=== PATIENT | female | born 1945 | race Caucasian/White ===

== ENCOUNTER → 2019-11-02 10:43 | Outpatient (BNVA) | payer MEDICARE, SELFPAY | PROVIDERS: Family Provider Family Medicine; PCP Family Medicine; Visit Provider Specialist | DX: G20 Parkinson's disease (principal) | CPT/HCPCS: 95983; 95984; 99214 ==

== ENCOUNTER → 2019-12-27 15:10 | Outpatient (BNVA) | payer MEDICARE, SELFPAY | PROVIDERS: Family Provider Family Medicine; PCP Family Medicine; Visit Provider Specialist | DX: G20 Parkinson's disease (principal) | CPT/HCPCS: 95983; 95984; 99214 ==

== ENCOUNTER → 2020-05-08 10:00 | Outpatient (BNVA) | payer MEDICARE, SELFPAY | PROVIDERS: Family Provider Family Medicine; PCP Family Medicine; Visit Provider Specialist | DX: G20 Parkinson's disease (principal); F02.80 Dementia in other diseases classified elsewhere, unspecified severity, without behavioral disturbance, psychotic disturbance, mood disturbance, and anxiety; R25.1 Tremor, unspecified | CPT/HCPCS: 95983; 99214 ==

== ENCOUNTER → 2020-05-09 13:18 | Outpatient (BNVA) | payer MEDICARE, SELFPAY | PROVIDERS: Family Provider Family Medicine; PCP Family Medicine; Visit Provider Specialist | DX: G20 Parkinson's disease (principal) | CPT/HCPCS: 95983; 99213 ==

== ENCOUNTER → 2020-05-23 07:50 | Outpatient (BNVA) | payer MEDICARE, SELFPAY | PROVIDERS: Family Provider Family Medicine; PCP Family Medicine; Visit Provider Specialist | DX: G20 Parkinson's disease (principal) | CPT/HCPCS: 95983; 99214 ==

== ENCOUNTER → 2020-06-19 13:13 | Outpatient (BNVA) | payer MEDICARE, SELFPAY | PROVIDERS: Family Provider Family Medicine; PCP Family Medicine; Visit Provider Nurse Practitioner Family | DX: N30.01 Acute cystitis with hematuria (principal) | CPT/HCPCS: 80053; 81000 ==

== ENCOUNTER → 2020-09-20 09:58 | Outpatient (BNVA) | payer MEDICARE, SELFPAY | PROVIDERS: Family Provider Family Medicine; PCP Family Medicine; Visit Provider Specialist | DX: G20 Parkinson's disease (principal) | CPT/HCPCS: 95983; 99214 ==

== ENCOUNTER → 2020-11-17 09:38 | Outpatient (BNVA) | payer MEDICARE, SELFPAY | PROVIDERS: Family Provider Family Medicine; PCP Family Medicine; Visit Provider Specialist | DX: G20 Parkinson's disease (principal); R20.0 Anesthesia of skin; R20.2 Paresthesia of skin | CPT/HCPCS: 80053; 84443; 85025 ==

== ENCOUNTER → 2021-03-21 10:04 | Outpatient (BNVA) | payer MEDICARE, SELFPAY | PROVIDERS: Family Provider Family Medicine; PCP Family Medicine; Visit Provider Specialist | DX: G20 Parkinson's disease (principal); M25.562 Pain in left knee; Z96.82 Presence of neurostimulator | CPT/HCPCS: 95983; 95984; 99215 ==

== ENCOUNTER → 2021-04-03 10:32 | Outpatient (BNVA) | payer MEDICARE, SELFPAY | PROVIDERS: Family Provider Family Medicine; PCP Family Medicine; Visit Provider Orthopaedic Surgery | DX: M25.562 Pain in left knee (principal); Z96.652 Presence of left artificial knee joint; Z47.1 Aftercare following joint replacement surgery | CPT/HCPCS: 73560; 73565; 97760; L1830 ==

== ENCOUNTER 2021-04-03 14:45 | Outpatient (CLI) | payer MEDICARE, SELFPAY | END 2021-04-03 14:46 | disposition home or self-care (01) | LOC: SPT 14:46 | PROVIDERS: Family Provider Family Medicine; PCP Family Medicine; Visit Provider Orthopaedic Surgery | DX: Z47.1 Aftercare following joint replacement surgery (principal); Z96.652 Presence of left artificial knee joint | CPT/HCPCS: 97760; L1830 ==

== ENCOUNTER → 2021-08-22 10:34 | Outpatient (BNVA) | payer MEDICARE, SELFPAY | PROVIDERS: Family Provider Family Medicine; PCP Family Medicine; Visit Provider Specialist | DX: G20 Parkinson's disease (principal); R56.9 Unspecified convulsions; E66.3 Overweight; Z68.28 Body mass index [BMI] 28.0-28.9, adult; Z96.82 Presence of neurostimulator | CPT/HCPCS: 95983; 95984; 99214; 99215 ==

== ENCOUNTER → 2022-02-20 09:37 | Outpatient (BNVA) | payer MEDICARE, SELFPAY | PROVIDERS: Family Provider Family Medicine; PCP Family Medicine; Visit Provider Orthopaedic Surgery | DX: M25.561 Pain in right knee (principal); M23.50 Chronic instability of knee, unspecified knee | CPT/HCPCS: 99213; 99214 ==

== ENCOUNTER 2022-03-26 06:00 | Outpatient (CLI) | payer MEDICARE, SELFPAY ==
[2022-03-26 10:11] VITALS: BMI 31.4
--- NOTE | 2022-03-26 10:22 | ECG_ITS ---
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 Measurements Intervals [place] Rate: P: FL: QRS: QRSD: T: QT: QTc: Interpretive Statements SINUS BRADYCARDIA Compared to ECG 12/06/2018 13:13:26 Left bundle-branch block no longer present Electronically Signed On 03-26-2022 18:11:06 CDT by Denys Gomez M.D. [id number]
--- NOTE | 2022-03-26 10:51 | ANES.PREANE2 ---
Pre-Anesthetic Assessment Height/Weight: Height 1.68 m Weight 88.451 kg Operation Date: 04/01/22 07:00 Proposed Procedures p Revision of total knee arthroplasty Left knee: 55524/M25.569(Left) - Dougie Mccallum MD Familial anesthetic complications: Patient unable to recall well, but states that when she had her last surgery a ammonium nitrate neutralizer was involved in evaluating her in the middle of her procedure and that she was told she had an VT but in the end I did fine. Was Beta Jorge taken within 24 hours: N/A Was Clonidine taken within 24 hours: N/A Social No alcohol and No tobacco Exam alert, oriented x 3, clear to auscultation bilaterally and regular rate & rhythm Airway Submandibular: within normal limits Cervical ROM: Other (limited extension) Mallampati: Class III Comments: Comments: Upper dentures Pulmonary None reported CV/HEM Arrythmia (Bundle branch block on EKG - final report pending ) and Myocardial Infarction None reported Hepatic None reported GI Gastroesophageal Reflux Disease and None reported Metabolic None reported Musc/skel Osteoarthritis/DJD PCL disruption Neuropsych Parkinson's with DBS in place. Leads down right posterior neck, generator right upper chest. Anesthetic Plan ASA status: 3 (76 year old female with hx of Parkinson's s/p DBS placment and PCL disruption w/ instability of joint ) Anesthesia: General Other: We discussed risk and benefits of general vs spinal anesthesia including DVT risk, infection, paralysis/catastrophic nerve injury, back bruising/pain, PDPH, conversion to general in case of spinal, PONV, sore throat (sometimes severe), corneal abrasion, positioning and peripheral nerve injuries, life threatening allergic reaction, post operative ICU admission requiring prolonged intubation, stroke, heart attack, , post operative delirium and/or post operative cognitive decline, and rare incidences of recall (under general anesthesia). Patient prefers general anesthesia. Risk of > 500 ml blood loss (7ml/kg in children): No Other Pertinent Information Patient poor historian with reduced activity/mobility secondaryto PCL disruption with instability and DBS dependent Parkinson with unclear history of cardiac event reported by patient. Plan pre op cardiac clearance, consult ordered. Patient DBS last evaluated August 2021. Consult placed to see neurologist prior to surgery. Medications/Allergies Home Medications Medication Instructions Recorded Confirmed Last Taken Type naproxen 375 mg tablet,delayed 375 mg PO BID PRN 11/02/19 03/26/22 Unknown History release hydrocodone 10 mg-acetaminophen 1 tab PO DAILY PRN 30 Days #30 tab 03/21/21 03/26/22 Unknown Rx 325 mg tablet Knee immobilizer #1 ea 04/03/21 02/20/22 Unknown Rx carbidopa 25 mg-levodopa 100 mg 1 tab PO QID 03/26/22 03/26/22 Unknown History tablet midodrine 5 mg tablet 5 mg PO QID 03/26/22 03/26/22 Unknown History Allergies Allergy/AdvReac Type Severity Reaction Status Date / Time No Known Allergies Allergy Verified 03/26/22 10:09 [facility] Anesthesia Surgical History Status post deep brain stimulator placement Family History Other CAD (coronary artery disease) Cancer Diabetes Stroke Denies family history of Hypertension Social History Smoking and tobacco status: never smoked Alcohol intake: never History of recent travel: No Data Anesthesia Cardiac Studies: No Data to Display
[2022-03-26 14:51] LABS: Basophils # 0.1 10^3/uL (0.0-0.1); Basophils % 1.6 %; Eosinophils # 0.4 10^3/uL (0.0-0.8); Eosinophils % 6.4 %; Hematocrit 37.6 % (37.0-47.0); Hemoglobin 11.9 g/dL (11.5-15.3); Lymphocytes # 1.5 10^3/uL (0.8-4.8); Lymphocytes % 25.9 %; Mean Corpuscular HGB Conc 31.6 g/dL (30.0-36.0); Mean Corpuscular Hemoglobin 30.9 pg (28.0-34.0); Mean Corpuscular Volume 97.7 fl (81-99); Mean Platelet Volume 10.8 fL (7.4-10.4); Monocytes # 0.3 10^3/uL (0.2-0.9); Monocytes % 5.7 %; Neutrophils # 3.47 10^3/uL (1.8-7.7); Neutrophils % 60.2 %; Nucleated Red Blood Cells % 0 %; Platelet Count 196 10^3/cmm (130-400); Red Blood Count 3.85 10^6/uL (4.1-5.3); Red Cell Distribution Width 13.7 % (12.1-15.1); White Blood Count 5.8 10^3/uL (4.0-10.0)
[2022-03-26 15:09] LABS: Anion Gap 16.1 (5-19); Blood Urea Nitrogen 25 mg/dL (8-23); Calcium 8.9 mg/dL (8.5-10.5); Carbon Dioxide 23 mmol/L (22-29); Chloride 102 mmol/L (98-107); Glucose 158 mg/dL (65-115); Osmolality Calculated 292 mOsm/kg (285-295); Potassium 4.1 mmol/L (3.5-5.1); Sodium 137 mmol/L (136-145)
== END 2022-03-26 06:01 | disposition home or self-care (01) ==
LOC: LAB 07-29 19:50
PROVIDERS: Anesthesiology; PCP Family Medicine; Visit Provider Orthopaedic Surgery
DX: Z01.89 Encounter for other specified special examinations (principal)
CPT/HCPCS: 36415; 80048; 85025

== ENCOUNTER → 2022-03-26 12:20 | Day surgery (SDC) | payer MEDICARE, SELFPAY | PROVIDERS: PCP Family Medicine; Visit Provider Orthopaedic Surgery | DX: Z01.818 Encounter for other preprocedural examination (principal) | CPT/HCPCS: 93005 ==

== ENCOUNTER → 2022-03-27 13:43 | Outpatient (BNVA) | payer MEDICARE, SELFPAY | PROVIDERS: PCP Family Medicine; Visit Provider Specialist | DX: G20 Parkinson's disease (principal); M23.52 Chronic instability of knee, left knee; Z96.82 Presence of neurostimulator | CPT/HCPCS: 82607; 95983; 95984; 99214 ==

== ENCOUNTER → 2022-05-22 12:26 | Outpatient (BNVA) | payer MEDICARE, SELFPAY | PROVIDERS: PCP Family Medicine; Visit Provider Internal Medicine | DX: Z01.818 Encounter for other preprocedural examination (principal); R06.09 Other forms of dyspnea; R07.9 Chest pain, unspecified; R06.02 Shortness of breath | CPT/HCPCS: 99203; 99204 ==

== ENCOUNTER 2022-07-29 13:41 | Outpatient (CLI) | payer MEDICARE, SELFPAY ==
--- NOTE | 2022-07-29 14:30 | USCV_ITS ---
Leonor Snyder Age: 77 Gender: F : 1945 Exam Date: 07/29/2022 15:00 Ordering Phys: Denys Gomez M.D ([email or web address]) Technologist: Guevara Delgado Exam Location: [facility] [place] Indication: shortness of breath BP: 122 / 80 HR: 65 Rhythm: Sinus Technical Quality: Adequate MEASUREMENTS (Male / Female) Normal Values 2D ECHO LV Diastolic Diameter PLAX 3.6 cm 4.2 - 5.9 / 3.9 - 5.3 cm LV Systolic Diameter PLAX 2.2 cm IVS Diastolic Thickness 0.8 cm 0.6 - 1.0 / 0.6 - 0.9 cm IVS Systolic Thickness 0.9 cm LVPW Diastolic Thickness 0.9 cm 0.6 - 1.0 / 0.6 - 0.9 cm LVPW Systolic Thickness 1.0 cm LVOT Diameter 2.0 cm LV Ejection Fraction 2D Teich 69.4 % LV Ejection Fraction MOD 2C 66.9 % LV Ejection Fraction 2C AL 67.6 % LA Diameter 3.2 cm LA Width 3.8 cm LA Height 4.7 cm RA Width 3.3 cm RA Height 3.9 cm Aorta at Sinotubular Diameter 2.3 cm IVC Diameter 1.8 cm M-MODE Aortic Annulus Diameter 3.0 cm LA Ao Ratio MM 1.1 MV E Point Septal Separation 0.4 cm DOPPLER AV Peak Velocity 151.0 cm/s LVOT Peak Velocity 93.0 cm/s AV Area Cont Eq vti 1.8 cm squared AV Area Cont Eq pk 1.9 cm squared MV Peak Velocity 110.0 cm/s MV Area PHT 10.0 cm squared Mitral E to A Ratio 0.6 MV E' Velocity 32.5 cm/s Mitral E to MV E' Ratio 6.7 Mitral E to LV E' Lateral Ratio 6.0 Mitral E to LV E' Septal Ratio 7.7 TR Peak Velocity 305.6 cm/s TR Peak Gradient 37.4 mmHg TR Mean Velocity 249.1 cm/s TR Mean Gradient 25.7 mmHg TR Velocity Time Integral 99.6 cm Right Atrial Pressure 3.0 mmHg Pulmonary Artery Systolic Pressu 40.4 mmHg PV Peak Velocity 102.0 cm/s RV Acceleration Time 0.1 s RV Ejection Time 0.3 s RV AcT/ET 0.3 FINDINGS Left Ventricle Left ventricle is normal in size. LV systolic function is normal with EF of 55 to 60%. No regional wall motion abnormalities are seen. Grade 1 diastolic dysfunction Right Ventricle RV is normal in size and function Right Atrium Normal in size Left Atrium Normal in size Mitral Valve Structurally normal mitral valve. Trace mitral regurgitation. Aortic Valve Grossly normal. No significant aortic stenosis. Mild aortic regurgitation. Tricuspid Valve Trace tricuspid regurgitation. RVSP is 35-40mmHg. This is consistent with mild pulmonary hypertension Pulmonic Valve Mild pulmonic regurgitation Pericardium Normal Aorta Normal in size IVC Appears to be normal CONCLUSIONS LV systolic function is normal with EF of 55 to 60% Grade 1 diastolic dysfunction Trace mitral regurgitation Mild aortic regurgitation Trace tricuspid regurgitation Mild pulmonary hypertension Mild pulmonic regurgitation Compared to prior echocardiogram from 2013, no significant changes are seen Denys Gomez MD (Electronically Signed) Final Date: 30 July 2022 12:00 S
== END 2022-07-29 13:42 | disposition home or self-care (01) ==
PROVIDERS: PCP Family Medicine; Visit Provider Internal Medicine
DX: R06.02 Shortness of breath (principal); I08.3 Combined rheumatic disorders of mitral, aortic and tricuspid valves; I27.20 Pulmonary hypertension, unspecified
CPT/HCPCS: 93306

== ENCOUNTER → 2022-08-06 13:44 | Outpatient (BNVA) | payer MEDICARE, SELFPAY | PROVIDERS: PCP Family Medicine; Visit Provider Orthopaedic Surgery | DX: M25.562 Pain in left knee (principal) | CPT/HCPCS: 99213 ==

== ENCOUNTER 2022-08-09 10:47 | Emergency (ER) | payer MEDICARE, SELFPAY ==
[2022-08-09 10:53] VITALS: BP 142/53; PULSE 79; RESP 18; O2SAT 99
--- NOTE | 2022-08-09 11:03 | XR_ITS ---
WS: [id number] Left knee, 3 views, 08/09/2022 Clinical Data: displacement of artifical knee Comparison: AP both knees, left knee, 04/03/2021 Findings: There is posterior dislocation of the tibia from the femur. The arthroplastic components remain in go od position. No periprosthetic fractures are seen. There are anterior subcutaneous calcifications adjacent to the proximal left tibia. XR/XR knee LT 1-2V 90804 Impression: Posterior dislocation of left tibia from the femur.
--- NOTE | 2022-08-09 11:05 | W.ED.EXTPRO ---
Documented by User: Jeri Araujo PA-C 08/09/22 14:02 HPI - Extremity Problem General: Chief complaint: Extremity Problem,Nontraumatic Stated complaint: KNEE ISSUES Time Seen by Provider: 08/09/22 10:49 Source: patient Mode of arrival: EMS Limitations: no limitations History of Present Illness: 77-year-old female presents to the ER today for left knee pain and probable displacement. Patient reports this has been causing her problems. She reports she had it replaced in the mid by a physician in [facility]. Patient reports over the last several months she has had a go out of place several times but has been able to get it back in place. Last night she reports she was walking across the floor when it went out. Patient reports she is been unable to get it back into place at this time. She reports the pain is continuing to worsen now. Patient reports she had an appointment with Ortho coming up but given she could not get it back in place she came to the ER today. Patient reports she last ate or drank last night. Review of Systems General: Reports: 10 or more systems reviewed and unremarkable except in HPI and below PFSH ED PFSH: Surgical History Status post deep brain stimulator placement Family History Other CAD (coronary artery disease) Cancer Diabetes Stroke Denies family history of Hypertension Social History Smoking and tobacco status: never smoked Alcohol intake: never History of recent travel: No Physical Exam Const: COMMON NORMALS: average body habitus, patient oriented x3, no limitations, alert and well nourished Resp: COMMON NORMALS: normal respiratory effort, No retractions and clear to auscultation bilaterally AUSCULTATION: clear to auscultation bilaterally Cardio: COMMON NORMALS: regular rate, regular rhythm and No murmurs present (Cardio) RATE: regular rate RHYTHM: regular rhythm Extremity: NARRATIVE EXTREMITY EXAM: The tibia and fibula appears to have lateral displacement from the femur. There is moderate swelling noted in the anterior left knee compartment. There is mild bruising also noted. Patient has tenderness over this area also. Neuro: COMMON NORMALS: patient oriented x3 SENSORIUM/ORIENTATION: Yes alert Psych: COMMON NORMALS: mental status grossly normal, Normal thought process present and cooperative THOUGHT PROCESS: Normal thought process present Skin: COMMON NORMALS: no rashes or lesions noted and no wounds GENERAL SKIN EXAM: no rashes or lesions noted Course ED course: Patient presents to the ER for probable left knee displacement. We will get an x-ray at this time. Patient will be given fentanyl for pain at this time. We will contact Ortho pending results. Reevaluation(s): Reevaluation #1: I spoke with Dr. Mccallum and sent him pictures. Here recommends reducing this in the ER today. He recommends flexing and bending the knee to pop it forward. I do not feel comfortable doing this therefore I discussed this patient with both Dr. Moyer and Dr. Rivera who neither 1 will reduce this either given the prosthetic. Dr. Mccallum was contacted by Dr. Rivera for further discussion on this patient Time: 11:35 Reevaluation #2: Patient was seen by Dr. Moyer and he was able to reduce the dislocation. Repeat x-ray showed the knee to be in place at this time. Time: 14:01 Vital Signs: Vital signs: Vital Signs Pulse Rate 79 08/09/22 10:53 Respiratory Rate 19 H 08/09/22 13:56 Blood Pressure 142/53 08/09/22 10:53 Pulse Oximetry 99 08/09/22 10:53 Oxygen Delivery Me thod 08/09/22 10:53 MDM - Extremity (Nontraumatic) Medical Decision Making Dr. Moyer was able to reduce patient's dislocation. This was confirmed with repeat x-ray. We will send patient home at this time. Dr. Mccallum is working on scheduling patient for surgery, this was in the works prior to patient coming to the ER. Patient was placed in a straight leg knee brace and told to leave the knee brace on at all times. She should return to the ER with new or worsening symptoms. I will do a short course of hydrocodone for pain as patient is reporting significant pain at this time. Lab Data Radiology Impressions Knee X-Ray 08/09/22 12:07 IMPRESSION: 1. Reduction of the previously visualized dislocation. Correlate regarding integrity of distal pulses. 2. No paralleling lucencies about the femoral or tibial component to suggest loosening. 3. No acute fracture or dislocation. Critical Care Time Critical Care Time: Critical Care Time: No Discharge Plan Discharge Patient Disposition: Home Clinical Impression: Dislocation of knee, left, closed Qualifiers: Encounter type: initial encounter Qualified Code(s): S83.105A - Unspecified dislocation of left knee, initial encounter Condition: Stable Prescriptions: New hydrocodone-acetaminophen 5-325 mg tablet 1 tab PO Q8H PRN (Reason: pain) Qty: 9 0RF No Action naproxen 375 mg tablet,delayed release (DR/EC) 375 mg PO BID PRN (Reason: Pain) (DME) Knee immobilizer See Rx Instructions .ROUTE .MEDSUPPLY Qty: 1 0RF Rx Instructions: As directed cyanocobalamin (vitamin B-12) 1,000 mcg/mL solution 1,000 mcg IM .COMPLEX Qty: 10 0RF Rx Instructions: 1 injection of 1000mcg daily for 3 days then weekly for 4 weeks then monthly carbidopa-levodopa 25-100 mg tablet See Rx Instructions .ROUTE .COMPLEX Qty: 120 3RF Dose Instruction: Take 1 tablet by mouth 4 times daily Rx Instructions: Take 1 tablet by mouth 4 times daily midodrine 5 mg tablet See Rx Instructions .ROUTE .COMPLEX Qty: 120 3RF Dose Instruction: Take 1 tablet by mouth 4 times daily Rx Instructions: Take 1 tablet by mouth 4 times daily Discharge Orders: Discharge ED (Routine); Ordered 08/09/22 Ordered By: Jeri Araujo Referrals: Kartik Garcia MD [Primary Care Provider] - Discharge Diet: Usual diet Discharge Activity: Use walker/crutches as instructed Activity Restrictions/Additional Instructions: Wear brace as placed in the ER until follow-up with orthopedic doctor. Contact orthopedic clinic at this time and schedule follow-up next week. Return to the ER with any new or worsening symptoms. Apply ice to reduce swelling. Take home medications for pain. 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 Fwd Exam Detailed Documented by User: Chip Moyer DO 08/13/22 06:00 HPI - Extremity Problem General: Chief complaint: Extremity Problem,Nontraumatic Stated complaint: KNEE ISSUES Time Seen by Provider: 08/09/22 10:49 PFSH ED PFSH: Surgical History Status post deep brain stimulator placement Family History Other CAD (coronary artery disease) Cancer Diabetes Stroke Denies family history of Hypertension Social History Smoking and tobacco status: never smoked Alcohol intake: never History of recent travel: No Procedures Orthopedic Joint Reduction Joint #1: Side: left Joint Reduction Location: knee/patella Technique used: direct manipulation Post-reduction neuro exam: intact Post-reduction vascular: intact Post Reduction X-Ray Obtained: Yes Post Reduction X-Ray Results: reduced Splint Applied: Yes Patient Tolerated Procedure: well Additional Comments: Tibial plate has an negative tilt to it by flexing to 90 degrees was able to reduce. However any attempted extension it immediately dislocated again. By holding supported distal femur was able to maintain reduction and apply knee immobilizer with knee immobilizer applied was able to maintain anatomical reduction. Course Vital Signs: Vital signs: Vital Signs Pulse Rate 79 08/09/22 10:53 Respiratory Rate 19 H 08/09/22 13:56 Blood Pressure 142/53 08/09/22 10:53 Pulse Oximetry 99 08/09/22 10:53 Oxygen Delivery Me thod 08/09/22 10:53 MDM - Extremity (Nontraumatic) Medical Decision Making Dr. Moyer was able to reduce patient's dislocation. This was confirmed with repeat x-ray. We will send patient home at this time. Dr. Mccallum is working on scheduling patient for surgery, this was in the works prior to patient coming to the ER. Patient was placed in a straight leg knee brace and told to leave the knee brace on at all times. She should return to the ER with new or worsening symptoms. I will do a short course of hydrocodone for pain as patient is reporting significant pain at this time. Reduction was delivered fairly straightforward applied the anemia with laser to maintain a confirmed reduction by repeat x-ray. We will discharge patient home to follow-up in the clinic. Discussed with Dr. Mccallum via telephone they have plans for patient to have revision of the knee. Postreduction neurovascular intact. Medical Records I reviewed the patient's medical records. Lab Data I reviewed the patient's lab results. Radiology Impressions Knee X-Ray 08/09/22 12:07 IMPRESSION: 1. Reduction of the previously visualized dislocation. Correlate regarding integrity of distal pulses. 2. No paralleling lucencies about the femoral or tibial component to suggest loosening. 3. No acute fracture or dislocation. Discharge Plan Discharge Patient Disposition: Home Clinical Impression: Dislocation of knee, left, closed Qualifiers: Encounter type: initial encounter Qualified Code(s): S83.105A - Unspecified dislocation of left knee, initial encounter Condition: Stable Prescriptions: New hydrocodone-acetaminophen 5-325 mg tablet 1 tab PO Q8H PRN (Reason: pain) Qty: 9 0RF No Action naproxen 375 mg tablet,delayed release (DR/EC) 375 mg PO BID PRN (Reason: Pain) (DME) Knee immobilizer See Rx Instructions .ROUTE .MEDSUPPLY Qty: 1 0RF Rx Instructions: As directed cyanocobalamin (vitamin B-12) 1,000 mcg/mL solution 1,000 mcg IM .COMPLEX Qty: 10 0RF Rx Instructions: 1 injection of 1000mcg daily for 3 days then weekly for 4 weeks then monthly carbidopa-levodopa 25-100 mg tablet See Rx Instructions .ROUTE .COMPLEX Qty: 120 3RF Dose Instruction: Take 1 tablet by mouth 4 times daily Rx Instructions: Take 1 tablet by mouth 4 times daily midodrine 5 mg tablet See Rx Instructions .ROUTE .COMPLEX Qty: 120 3RF Dose Instruction: Take 1 tablet by mouth 4 times daily Rx Instructions: Take 1 tablet by mouth 4 times daily Discharge Orders: Discharge ED (Routine); Ordered 08/09/22 Ordered By: Jeri Araujo Referrals: Kartik Garcia MD [Primary Care Provider] - Discharge Diet: Usual diet Discharge Activity: Use walker/crutches as instructed Activity Restrictions/Additional Instructions: Wear brace as placed in the ER until follow-up with orthopedic doctor. Contact orthopedic clinic at this time and schedule follow-up next week. Return to the ER with any new or worsening symptoms. Apply ice to reduce swelling. Take home medications for pain. 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
[2022-08-09 11:43] VITALS: RESP 19
[2022-08-09] MEDS: fentaNYL 50 mcg/mL INJ 2mL IVP (11:43)
--- NOTE | 2022-08-09 12:07 | XRR_ITS ---
PROCEDURE INFORMATION: Exam: XR Left Knee Exam date and time: 08/09/2022 12:10 PM Age: 77 years old Clinical indication: Pain; Left; Prior surgery; Patient HX: Follow up of lt knee dislocation; Additional info: Knee pain TECHNIQUE: Imaging protocol: Radiologic exam of the Left knee. Views: 1 or 2 views. COMPARISON: CR XR knee LT 1-2V 97052 08/09/2022 11:10 AM FINDINGS: Tubes, catheters and devices: Spacer. Bones/joints: Reduction of the previously visualized dislocation. Patient is status post knee arthroplasty with near anatomical alignment of the prosthesis. No paralleling lucencies about the femoral or tibial component to suggest loosening. No acute fracture or dislocation. Calcification within the patellar tendon. Previously noted although more numerous current LEEP. Soft tissues: Normal. XR/XR knee LT 1-2V 98214 IMPRESSION: 1. Reduction of the previously visualized dislocation. Correlate regarding integrity of distal pulses. 2. No paralleling lucencies about the femoral or tibial component to suggest loosening. 3. No acute fracture or dislocation.
[2022-08-09] MEDS: orphenadrine 30 mg/mL Inj 2 mL 60 MG IVP (12:16)
[2022-08-09 13:56] VITALS: RESP 19
== END 2022-08-09 13:57 | disposition home or self-care (01) ==
PROVIDERS: Emergency Provider Physician Assistant; PCP Family Medicine
DX: S83.125A Posterior dislocation of proximal end of tibia, left knee, initial encounter (principal); X58.XXXA Exposure to other specified factors, initial encounter; Z96.652 Presence of left artificial knee joint
CPT/HCPCS: 27550; 73560; 96374; 96375; 99284; J2360; J3010

== ENCOUNTER 2022-08-16 10:57 | Outpatient (CLI) | payer MEDICARE, SELFPAY | END 2022-08-16 10:58 | disposition home or self-care (01) | LOC: RT 08-28 11:00 | PROVIDERS: PCP Family Medicine; Visit Provider Orthopaedic Surgery | DX: Z01.89 Encounter for other specified special examinations (principal); I44.7 Left bundle-branch block, unspecified | CPT/HCPCS: 93005 ==

== ENCOUNTER 2022-08-26 14:26 | Inpatient (IN) | payer MEDICARE, SELFPAY ==
[2022-08-16 13:41] VITALS: BMI 31.4
--- NOTE | 2022-08-16 13:59 | ECG_ITS ---
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 Measurements Intervals [place] Rate: 79 P: 36 VA: 156 QRS: -23 QRSD: 158 T: 115 QT: 407 QTc: 469 Interpretive Statements SINUS RHYTHM LEFT BUNDLE BRANCH BLOCK [120+ ms QRS DURATION, 80+ ms Q/S IN V1/V2, 85+ ms R IN I/aVL/V5/V6] Compared to ECG 03/26/2022 09:30:58 Left bundle-branch block now present Sinus bradycardia no longer present Electronically Signed On 08-16-2022 15:35:15 CDT by Dorothy Gage M.D. [id number]
--- NOTE | 2022-08-16 14:55 | P.ANESASSM_ITS ---
Pre-Anesthetic Assessment Height/Weight: Height 1.68 m Weight 88.451 kg Preop Diagnosis: Instability left total knee arthroplasty Operation Date: 08/26/22 10:25 Proposed Procedures p Left total knee arthroplasty:98635,M25.569(Left) - Dougie Mccallum MD Familial anesthetic complications: none Was Beta Jorge taken within 24 hours: N/A Was Clonidine taken within 24 hours: N/A Social No alcohol and No tobacco Exam alert, oriented x 3, clear to auscultation bilaterally and regular rate & rhythm Airway Submandibular: within normal limits Cervical ROM: within normal limits Mallampati: Class II Dentition: false CV/HEM Arrythmia (LBBB) and Coronary Artery Disease CONCLUSIONS ?LV systolic function is normal with EF of 55 to 60% ?Grade 1 diastolic dysfunction ?Trace mitral regurgitation ?Mild aortic regurgitation ?Trace tricuspid regurgitation ?Mild pulmonary hypertension ?Mild pulmonic regurgitation ?Compared to prior echocardiogram from 2013, no significant ?changes are seen ?Denys Gomez MD ?(Electronically Signed) ?Final Date:? ? ? 30 July 2022 ? 12:00 Metabolic Morbid Obesity [facility] [place] Osteoarthritis/DJD Neuropsych Dementia Parkinson's Anesthetic Plan ASA status: 3 Anesthesia: Regional (specify below) (SAB with adductor blk) Medications/Allergies Home Medications Medication Instructions Recorded Confirmed Last Taken Type naproxen 375 mg tablet,delayed 375 mg PO BID PRN Pain 11/02/19 08/16/22 Unknown History release Knee immobilizer #1 ea 04/03/21 08/06/22 Unknown Rx cyanocobalamin (vitamin B-12) 1,000 mcg IM .COMPLEX #10 mL 04/01/22 08/16/22 U nknown Rx 1,000 mcg/mL injection solution carbidopa 25 mg-levodopa 100 mg See Rx Instructions .Route 08/02/22 08/16/22 Unknown Rx tablet .COMPLEX #120 tabs hydrocodone 5 mg-acetaminophen 325 1 tab PO Q8H PRN pain #9 tabs 08/09/22 08/16/22 Unknown Rx mg tablet midodrine 5 mg tablet See Rx Instructions .Route 08/09/22 08/16/22 Unknown Rx .COMPLEX #120 tabs Allergies Allergy/AdvReac Type Severity Reaction Status Date / Time No Known Allergies Allergy Verified 08/06/22 14:38 PFSH Anesthesia Surgical History Status post deep brain stimulator placement Family History Other CAD (coronary artery disease) Cancer Diabetes Stroke Denies family history of Hypertension Social History Smoking and tobacco status: never smoked Alcohol intake: never History of recent travel: No Data Anesthesia Cardiac Studies: Echocardiogram 07/29/22
[2022-08-26] VITALS (24 sets, daily range): BP systolic 133–179; BP diastolic 64–87; PULSE 61–85; RESP 14–20; TEMP 36.6–37.1; O2SAT 94–98; BMI 31.4
--- NOTE | 2022-08-26 07:34 | P.ANESUD_ITS ---
Pre-Anesthetic Update Pre-Anesthetic Assessment: Date of Surgery/Procedure: 08/26/22 Preop Maureen gnosis: Instability left total knee arthroplasty Proposed Procedure: Operation Date: 08/26/22 07:00 Proposed Procedures p Left total knee arthroplasty Revision [id number],M25.569(Left) - Dougie Mccallum MD Any changes to Pre-Anesthetic Assessment?: No Exam: Pre-Anes Outpt Exam: alert, oriented x 3, clear to auscultation bilaterally and regular rate & rhythm Cardiac Studies: Echocardiogram 07/29/22
--- NOTE | 2022-08-26 07:35 | P.ANESASSM_ITS ---
Pre-Anesthetic Assessment Height/Weight: Height 1.68 m Weight 88.451 kg Preop Diagnosis: Instability left total knee arthroplasty Operation Date: 08/26/22 07:00 Proposed Procedures p Left total knee arthroplasty Revision [id number],M25.569(Left) - Dougie Mccallum MD Familial anesthetic complications: none Was Beta Jorge taken within 24 hours: N/A Was Clonidine taken within 24 hours: N/A Social No alcohol and No tobacco Exam alert, oriented x 3, clear to auscultation bilaterally and regular rate & rhythm Airway Submandibular: within normal limits Cervical ROM: within normal limits Mallampati: Class II Pulmonary Exertional Dyspnea CV/HEM Arrythmia (LBBB), Coronary Artery Disease and Myocardial Infarction Metabolic Morbid Obesity Musc/[facility] Lower Back Pain and Osteoarthritis/DJD Neuropsych Dementia Parkinson's with DBS Anesthetic Plan ASA status: 3 Anesthesia: Regional (specify below) (SAB with adductor blk) Medications/Allergies Home Medications Medication Instructions Recorded Confirmed Last Taken Type naproxen 375 mg tablet,delayed 375 mg PO BID PRN Pain 11/02/19 08/16/22 Unknown History release Knee immobilizer #1 ea 04/03/21 08/06/22 Unknown Rx cyanocobalamin (vitamin B-12) 1,000 mcg IM .COMPLEX #10 mL 04/01/22 08/16/22 Unknown Rx 1,000 mcg/mL injection solution carbidopa 25 mg-levodopa 100 mg See Rx Instructions .Route 08/02/22 08/16/22 Unknown Rx tablet .COMPLEX #120 tabs hydrocodone 5 mg-acetaminophen 325 1 tab PO Q8H PRN pain #9 tabs 08/09/22 08/16/22 Unknown Rx mg tablet midodrine 5 mg tablet See Rx Instructions .Route 08/09/22 08/16/22 Unknown Rx .COMPLEX #120 tabs Allergies Allergy/AdvReac Type Severity Reaction Status Date / Time No Known Allergies Allergy Verified 08/06/22 14:38 [facility] Anesthesia Surgical History Status post deep brain stimulator placement Family History Other CAD (coronary artery disease) Cancer Diabetes Stroke Denies family history of Hypertension Social History Smoking and tobacco status: never smoked Alcohol intake: never History of recent travel: No Data Anesthesia Cardiac Studies: Echocardiogram 07/29/22
[2022-08-26 09:41] LABS: Basophils # 0.1 10^3/uL (0.0-0.1); Basophils % 0.6 %; Eosinophils # 0.3 10^3/uL (0.0-0.8); Eosinophils % 3.8 %; Hematocrit 35.1 % (37.0-47.0); Hemoglobin 11.2 g/dL (11.5-15.3); Lymphocytes # 1.3 10^3/uL (0.8-4.8); Mean Corpuscular HGB Conc 31.9 g/dL (30.0-36.0); Mean Corpuscular Hemoglobin 31.6 pg (28.0-34.0); Mean Corpuscular Volume 99.2 fl (81-99); Mean Platelet Volume 10.2 fL (7.4-10.4); Monocytes # 0.6 10^3/uL (0.2-0.9); Monocytes % 6.9 %; Neutrophils # 5.87 10^3/uL (1.8-7.7); Neutrophils % 72.3 %; Nucleated Red Blood Cells % 0 %; Platelet Count 227 10^3/cmm (130-400); Red Blood Count 3.54 10^6/uL (4.1-5.3); Red Cell Distribution Width 13.1 % (12.1-15.1); White Blood Count 8.1 10^3/uL (4.0-10.0)
[2022-08-26] MEDS: sodium chloride 0.9% 1,000 ML 30 ML IV (09:48)
[2022-08-26] MEDS: gabapentin 300 mg Capsule PO (09:53)
[2022-08-26] MEDS: CELEcoxib 200 mg Capsule 400 MG PO (09:53)
[2022-08-26] MEDS: acetaminophen 500 mg Tablet 1000 MG PO ×2 (09:53→20:00)
[2022-08-26] MEDS: oxyCODONE 20 mg ER (12 HR) Tablet PO (09:53)
[2022-08-26 10:01] LABS: Anion Gap 11.3 (5-19); Blood Urea Nitrogen 22 mg/dL (8-23); Calcium 10.5 mg/dL (8.5-10.5); Carbon Dioxide 28 mmol/L (22-29); Chloride 101 mmol/L (98-107); Creatinine Clr Calc Pharmacy 58.6409; Glucose 118 mg/dL (65-115); Osmolality Calculated 286 mOsm/kg (285-295); Potassium 4.3 mmol/L (3.5-5.1); Sodium 136 mmol/L (136-145)
--- NOTE | 2022-08-26 11:18 | P.HP_ITS ---
Same Day Surgery H&P Indication for Procedure/HPI DATE OF PROCEDURE: August 26, 2022 CHIEF COMPLAINT/INDICATIONFOR SURGICAL PROCEDURE: Instability left knee PREOP DIAGNOSIS: Instability left total knee arthroplasty PLANNED PROCEDURE: Operation Date: 08/26/22 07:00 Proposed Procedures p Left total knee arthroplasty Revision [id number],M25.569(Left) - Dougie Mccallum MD This is an established 77 year old female patient here to discuss her anticipated knee revision.? Cardiac clearance has been obtained. She is here today for a follow up of her left knee pain and instability.? She describes original total knee being performed in 2007 in [facility] by Dr. Saenz.? She alleges a number of falls.? She can describe no single traumatic incident associated with the onset of her pain.? States her knee will pop in and out of place and gives way.? He is able to walk short distances perhaps 30 to 40 feet with a walker minutes to be very careful with any twisting or turning on her knee.? She has had a number of falls. 08/09/2022 the patient sustained a knee dislocation that she could not reduce on her own. She was seen in the ER were closed reduction was performed. She has been in a knee immobilizer since. Medications/Allergies* Home Medications 3 Medication Instructions Recorded Confirmed Type naproxen 375 mg tablet,delayed 375 mg PO BID PRN Pain 11/02/19 08/26/22 History release Allergies/Adverse Reactions Allergy/AdvReac Type Severity Reaction Status Date / Time No Known Allergies Allergy Verified 08/26/22 08:51 Current Medications: Generic Name Dose Route Start Last Admin Trade Name Freq PRN Reason Stop Dose Admin Sodium Chloride 1,000 mls @ 30 mls/hr 08/26/22 09:15 08/26/22 09:48 Sodium Chloride 0.9% IV 08/27/22 09:14 30 mls/hr .Q24H RAY Administration Pertinent History/Comorbid Conditions* Surgical History (Updated 05/10/20 @ 11:31 by Neli De La Torre MD) Status post deep brain stimulator placement Family History (Updated 12/27/19 @ 16:08 by Leticia Priest LPN) Diabetes CAD (coronary artery disease) Cancer Stroke Denies family history of Hypertension Social History Smoking and tobacco status: never smoked Alcohol intake: never History of recent travel: No Pertinent Exam Findings alert, oriented x 3, clear to auscultation bilaterally, regular rate & rhythm and operative site marked Left knee She has a well-healed anterior incision.? There is no erythema or swelling. Motion is from full extension to 120 degrees. 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
[2022-08-26] MEDS: ceFAZolin 2,000 MG in sodium chloride 0.9% (plus) 50 ML 100 MG IV ×2 (11:50→19:57)
[2022-08-26] MEDS: tranexamic acid 1,000 mg/10mL SDV 1000 MG IV (12:20)
[2022-08-26] MEDS: ketorolac 30 mg/mL INJ XX (12:48)
[2022-08-26] MEDS: sodium chloride 0.9% 100 mL Bag XX (12:48)
[2022-08-26] MEDS: EPINEPHrine 1 mg/mL INJ XX (12:49)
[2022-08-26] MEDS: tranexamic acid 1,000 mg/10mL SDV 1000 MG XX (12:52)
--- NOTE | 2022-08-26 13:46 | XRR_ITS ---
PROCEDURE INFORMATION: Exam: XR Left Knee Exam date and time: 08/26/2022 3:39 PM Age: 77 years old Clinical indication: Device placement; Joint replacement hardware; Prior surgery; Surgery date: Post-operative (0-2 days); Additional info: Left total knee arthroplasty TECHNIQUE: Imaging protocol: Radiologic exam of the Left knee. Views: 1 or 2 views. COMPARISON: CR XR knee LT 1-2V [id number] 08/09/2022 12:10 PM FINDINGS: Bones/joints: Replaced left total knee arthroplasty with extended stems noted in expected positioning. Soft tissues: Soft tissue swelling and air noted along the anterior knee corresponding to recent surgical procedure. XR/XR knee LT 1-2V [id number] IMPRESSION: Replaced left total knee arthroplasty in expected positioning.
--- NOTE | 2022-08-26 13:47 | P.OP_ITS ---
Operative Report Date of procedure: August 26, 2022 Pre-op diagnosis: Preop Diagnosis Instability left total knee arthroplasty Post-op diagnosis: same Post-op diagnosis: The posterior cruciate ligament and posterior lateral corner left total knee Procedure done: Revision and tibial polyethylene Implants: Brendon NexGen LCCK size 6 femoral component, 17x 100mm stem, medial and lateral 5 mm distal augments, 14 mm LCCK tibial insert. Pathology: none sent Surgeon: Dougie Mccallum Anesthesia: General Estimated blood loss (mL): 50 Tourniquet time (min): 60 Findings: The patient had a placed with a cruciate sparing tibial insert. There is ebu rnation and wear over the anterior medial tibial polyethylene. The femoral, tibial, and patellar components were cemented into place and stable. Condition: stable Disposition: PACU Procedure: The patient was taken to the operative and given a general anesthesia. She was prepped and draped on the operating room table with her left lower extremity exposed. A timeout was performed. An anterior incision was made in line with the previous scar with a scalpel blade and dissection carried down with el ectrocautery to the knee which was entered through a medial parapatellar approach. Patella could be easily displaced laterally and the knee flexed allowing access to the femoral component. An osteotome was used to remove the tibial insert. A small oscillating saw was used circumferentially around the femoral component the cement mantle from the bone. Tamp could then be used to elevate the femoral component with only minimal distal bone loss with cement. Sequential reaming of the stem was accomplished up to a size 17 where good cortical fit was felt to. The femoral cutting guide was placed attached to the stem over the femur with 5 mm distal augments to accommodate distal bone loss. Really no significant cuts were made through the block. Trial reduction was done with the component and stem. The final femoral component and stem were assembled and cemented into place. A 14 mm LCCK tibia provided excellent stability and was locked in place with the locking screw. he posterior capsule and collateral ligaments were then injected with a solution of 100 mL of 0.2% ropivacaine, 1 mL of a 1:1000 epinephrine solution, 30 mg of Toradol, and 1 g of tranexamic acid. The extensor retinaculum was closed with a running 1 Stratafix interrupted 1 Ethibond. The subcutaneous tissues were closed with 2-0 Vicryl and the skin was closed with a running 4-0 Stratafix. The wound was covered with a Dermabond Prineo dressing. It was covered with 4xrs and a compressive Tubigauze was applied. The patient was taken to recovery room in stable condition.
--- NOTE | 2022-08-26 14:33 | ANES.PROC ---
Anesthesia Procedures Procedure/Date: 08/26/22 Nerve Block ^: Nerve Block 1: Main Anesthesia: general anesthesia Time Out Performed: Yes Consent: requested by attending/covering physician, from patient, risks and benefits reviewed and patient agrees to proceed Nerve block location: adductor canal (left) Anesthesia monitors applied: pulse oximetry, EKG, BP cuff and oxygen Nerve block position: supine Anesthetic Used: ropivicaine 0.5% Amount of anesthesia used (mL): 20 Ultrasound used to: recognize landmarks Nerve Stimulator Used?: No Interscalene/Femoral BLK: 4 stimuplex 21 g needle used for position and inplane approach Injection: neg aspiration of heme Patient Tolerated Procedure: well Complications: none
--- NOTE | 2022-08-26 15:23 | SUR.PHASEI ---
1500 PT FOLLOWS COMMANDS AND WIGGLED TOES WHEN ASKED 1515 BROUGHT PT TO ROOM AND RECONIZED HER IN ROOM
[2022-08-26] MEDS: midodrine 5 mg TABLET PO (16:23)
[2022-08-26] MEDS: carbidopa-levodopa 25-100mg Tablet 1 EACH PO ×2 (16:23→21:10)
[2022-08-26] MEDS: sodium chloride 0.9% 1,000 ML 100 ML IV (16:25)
[2022-08-27] MEDS: sodium chloride 0.9% 1,000 ML 100 ML IV (01:20)
[2022-08-27 02:15] VITALS: BP 152/83; PULSE 65; RESP 16; TEMP 36.9; O2SAT 96
[2022-08-27 03:13] LABS: Hemoglobin 10.6 g/dL (11.5-15.3)
[2022-08-27] MEDS: ceFAZolin 2,000 MG in sodium chloride 0.9% (plus) 50 ML 100 MG IV ×2 (04:01→14:28)
[2022-08-27] MEDS: acetaminophen 500 mg Tablet 1000 MG PO ×3 (04:02→19:52)
[2022-08-27 06:00] VITALS: PULSE 66
--- NOTE | 2022-08-27 06:54 | PM.PN ---
Subjective Subjective: No complaints this morning. We will begin therapy. Vitals/I&O/Wt Last Vital Signs Temp 98.1 F 08/28/22 04:00 Pulse 90 08/28/22 04:00 Resp 12 08/28/22 04:00 BP 149/69 08/28/22 04:00 Pulse Ox 94 08/28/22 04:00 O2 Del Method 08/28/22 04:00 O2 Flow Rate 2 08/27/22 02:15 08/27/22 08/28/22 08/28/22 22:59 06:59 14:59 Intake Total 890 / 1730 0 / 1730 Output Total 300 / 300 350 / 650 Balance 590 / 1430 -350 / 1080 Weight last 48 hrs Weight 195 lb Physical Exam Narrative: Left knee incision clean and dry. Minimal swelling Urinary Catheter Management: Gaytan: Cath Placed During This Visit: yes, but has since been removed by the nurse Reason for Continuing Indwelling Catheter: Decision to DC Catheter Urinary Catheter Date of Insertion: 08/26/22 Urinary Catheter Time of Insertion: 12:00 Date Urinary Catheter Removed: 08/27/22 Time Urinary Catheter Discontinued: 06:05 Data : 08/28/22 06:44 08/28/22 06:44 A&P Assessment and plan (1) S/P revision of total knee: Begin to mobilize. Anticipate retirement. (2) Decubitus ulcer of left heel: Directed patient and family about minimizing pressure on posterior heel. Reposition pillow beneath calf. Attestations Medical Necessity Statement*: As per medicine Coding Level of Care Code Acute Printer Assistant for Ender Fwdenise Diagnoses S/P revision of total knee Z96.659 Decubitus ulcer of left heel L89.629
[2022-08-27 08:45] VITALS: PULSE 89; RESP 18; O2SAT 94
[2022-08-27] MEDS: carbidopa-levodopa 25-100mg Tablet 1 EACH PO ×3 (09:42→19:53)
[2022-08-27] MEDS: CELEcoxib 200 mg Capsule PO ×2 (09:42→21:39)
[2022-08-27] MEDS: aspirin 325 mg EC Tablet PO (09:42)
[2022-08-27] MEDS: midodrine 5 mg TABLET PO ×3 (09:42→19:53)
[2022-08-27 14:07] LABS: Glucose Point of Care 113 mg/dL (70-110)
[2022-08-27 16:26] VITALS: BP 145/75; PULSE 68; RESP 17; TEMP 36.7; O2SAT 96
[2022-08-27 20:00] VITALS: BP 136/72; PULSE 65; RESP 15; TEMP 36.4; O2SAT 95
[2022-08-27 22:00] VITALS: PULSE 67
[2022-08-28] VITALS (7 sets, daily range): BP systolic 87–178; BP diastolic 53–74; PULSE 68–90; RESP 12–18; TEMP 36.6–36.9; O2SAT 92–97
--- NOTE | 2022-08-28 03:07 | PC.NURSE ---
late entry 0110, patient having confusion in regards to place, calls daughter by name, places call to per phone without help, but is convinced that she is in her home, wants to see what her has done to her bedroom, very adamant to get out of bed and go into hallway to see for herself patient attempting to climb out of bed, daughter at bedside, placed patient in wheelchair x2 assist, wheeled patient out into hallway, reorientating patient, agrees to go back to bed, states she was sorry for acting that way bandage to left knee remains dry and intact.
[2022-08-28] MEDS: acetaminophen 500 mg Tablet 1000 MG PO ×3 (03:27→20:16)
--- NOTE | 2022-08-28 05:33 | XRR_ITS ---
PROCEDURE INFORMATION: Exam: XR Chest Exam date and time: 08/28/2022 6:00 AM Age: 77 years old Clinical indication: Prior surgery; Surgery type: Deep brain stimulator; Patient HX: New onset of confusion. Patient had total knee arthroplasty on 08/26/2022. ; Additional info: Confused TECHNIQUE: Imaging protocol: Radiologic exam of the chest. Views: 1 view. COMPARISON: None FINDINGS: Tubes, catheters and devices: Pacing device. Lungs: Interstitial prominence and chronic granulomatous disease. Pleural spaces: No pleural effusion. Heart/Mediastinum: Epicardial fat, without cardiomegaly. Bones/joints: Bilateral shoulder arthroplasties. Osteopenia and degenerative change. XR/XR chest 1V portable [id number] IMPRESSION: Interstitial prominence and chronic granulomatous disease.
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
[2022-08-28 06:53] LABS: Basophils # 0.1 10^3/uL (0.0-0.1); Basophils % 0.7 %; Eosinophils # 0.3 10^3/uL (0.0-0.8); Eosinophils % 3.4 %; Hematocrit 35.6 % (37.0-47.0); Hemoglobin 10.9 g/dL (11.5-15.3); Lymphocytes # 0.8 10^3/uL (0.8-4.8); Lymphocytes % 11.2 %; Mean Corpuscular HGB Conc 30.6 g/dL (30.0-36.0); Mean Corpuscular Hemoglobin 31.7 pg (28.0-34.0); Mean Corpuscular Volume 103.5 fl (81-99); Monocytes # 0.5 10^3/uL (0.2-0.9); Monocytes % 6.6 %; Neutrophils # 5.72 10^3/uL (1.8-7.7); Neutrophils % 77.6 %; Nucleated Red Blood Cells % 0 %; Platelet Count 215 10^3/cmm (130-400); Red Blood Count 3.44 10^6/uL (4.1-5.3); Red Cell Distribution Width 13.2 % (12.1-15.1); White Blood Count 7.4 10^3/uL (4.0-10.0)
--- NOTE | 2022-08-28 07:15 | PC.NURSE ---
late entry 05:30, patient continues to have bouts of confusion, mostly in regards to where she is at, insisting to get up and go to kitchen, unable to redirect, patient up on edge of bed, insisting to get up, becoming very angry, screaming, unable to calm, assisted patient up to wheelchair, not satisfied with direction we are pushing her, states i am getting out of here, going home, attempting to get up out of wheelchair. placed call to Dr. Johnson, new orders recieved, he came and seen patient, spoke with her, she agreed to lay back down in bed, patient calm at this time, haldol one time order, not given. daughter remains at bedside.
[2022-08-28 07:20] LABS: Alanine Aminotransferase 6 U/L (0-33); Albumin Level 3.3 g/dL (3.5-5.2); Alkaline Phosphatase 92 U/L (35-105); Anion Gap 16.2 (5-19); Aspartate Amino Transferase 28 U/L (0-32); Blood Urea Nitrogen 24 mg/dL (8-23); Calcium 10.1 mg/dL (8.5-10.5); Carbon Dioxide 24 mmol/L (22-29); Chloride 105 mmol/L (98-107); Globulin 3.1 g/dL (1.3-4.6); Glucose 113 mg/dL (65-115); Osmolality Calculated 297 mOsm/kg (285-295); Potassium 4.2 mmol/L (3.5-5.1); Sodium 141 mmol/L (136-145); Total Bilirubin 0.4 mg/dL (0.15-1.2); Total Protein 6.4 g/dL (6.6-8.7)
--- NOTE | 2022-08-28 07:49 | P.PN_ITS ---
Subjective Subjective: To be mobilized with therapy. Requiring two-person assist. Some confusion last night. Vitals/I&O/Wt Last Vital Signs Temp 98.1 F 08/28/22 04:00 Pulse 90 08/28/22 04:00 Resp 12 08/28/22 04:00 BP 149/69 08/28/22 04:00 Pulse Ox 94 08/28/22 04:00 O2 Del Method 08/28/22 04:00 O2 Flow Rate 2 08/27/22 02:15 08/27/22 08/28/22 08/28/22 22:59 06:59 14:59 Intake Total 890 / 1730 0 / 1730 Output Total 300 / 300 350 / 650 Balance 590 / 1430 -350 / 1080 Weight last 48 hrs Weight 195 lb Physical Exam Narrative: Left knee incision clean and dry. Prineo intact Urinary Catheter Management: Gaytan: Cath Placed During This Visit: yes, but has since been removed by the nurse Reason for Continuing Indwelling Catheter: Decision to DC Catheter Urinary Catheter Date of Insertion: 08/26/22 Urinary Catheter Time of Insertion: 12:00 Date Urinary Catheter Removed: 08/27/22 Time Urinary Catheter Discontinued: 06:05 Data : 08/28/22 06:44 08/28/22 06:44 A&P Assessment and plan (1) S/P revision of total knee: Continue to mobilize with therapy. (2) Delirium: Some confusion last night. We will discontinue narcotic pain medication. Attestations Medical Necessity Statement*: Awaiting intermediate. Coding Level of Care Code Acute Nurse Informatics Educator for Ender Cee Diagnoses S/P revision of total knee Z96.659 Delirium R41.0
[2022-08-28] MEDS: aspirin 325 mg EC Tablet PO (08:32)
[2022-08-28] MEDS: midodrine 5 mg TABLET PO ×3 (08:32→21:04)
[2022-08-28] MEDS: carbidopa-levodopa 25-100mg Tablet 1 EACH PO ×4 (08:32→21:03)
[2022-08-28 09:40] LABS: Bilirubin Urine Neg (Negative); Blood Urine Trace (Negative); Glucose Urine UA Norm (Normal); Ketones Urine Negative (Negative); Leukocyte Esterase Urine Negative (Negative); Nitrate Urine Negative (Negative); Protein Urine Neg (Negative); Specific Gravity, Urine 1.015 (1.005-1.030); Urine Appearance Clear (CLEAR); Urine Color Yellow (Yellow); Urobilinogen Urine Norm (Negative); pH Urine 5 (5-7)
[2022-08-28 09:41] LABS: Add Urine Culture? Yes; Add Urine Microscopic? YES; Bacteria Urine 4+ /hpf; Squamous Epithelial Cell Urine 0-4 /hpf (0-5); WBC Urine 0-4 /hpf (0-5)
--- NOTE | 2022-08-28 09:51 | PC.CHAP ---
Pastoral Care Encounter/Spiritual Assessment Type of Contact [] Declined cold rolling coordinator visit [] Patient/Family/Request visit [] Outpatient visit [] Follow-up visit [] Physician referral [] Code/Alert [x] Routine visit [] Staff referral [] Actively dying [] Patient sleeping [] Family support [] [] Out of room [] Palliative care [] [] Receiving care in room [] Pre-surgical visit [] Trauma [] Long length of stay [] ICU visit [] Other: Relational/Emotional Strength [x] Patient feels connected with others/family/visitors/staff [] Distress [] Loneliness/isolation [] Abandonment Spirituality of Patient [x] Person of Celina [] Attends Gnosticism of their Celina [] Believes in Prayer [] Reads Bible or Religion materials [] There are Spiritual issues to be addressed Switchboard Installer Interventions [x] Prayer [x] Active listening [x] Non-anxious presence [x] Spiritual/emotional support [] Crisis/trauma care [] Spiritual counseling [] Bereavement support [] Provided bereavement packet [] Provided Bible/devotional materials [] Provided toy/stuffed animal, coloring book to patient or family member [] Provided Communion [] Anointing/[place] [] Salvation [x] Completed spiritual assessment [] Other: Impact on Illness or Injury [] Angry [] Fearful [] Anxious [] Often cries [] Exhaustion [] Unable to work [] Unable to attend jain [] Unable to walk/stand [] Unable to read [] Unable to drive [] Unable to eat/drink [] Unable to sleep [] Unable to be with family [] Patient intubated [] Other: Summary Pt was sitting in chair and in room at time of cold rolling coordinator's visit. did most of the talking and when cold rolling coordinator would speak with Pt she would often look at the and allow him to speak. He is not happy with her doctor or the care his has received. It is apparent he cares for his and is her number one spokesman looking out for her. Pt has been confined to bed for a couple of weeks and as a result is very weak. Treatment plan is for her to leave hospital and go to a nursing facility so she can receive PT Time spent with patient 15 m
[2022-08-28] MEDS: CELEcoxib 200 mg Capsule PO ×2 (09:52→21:03)
[2022-08-28] MEDS: oxyCODONE 5 mg IR Tab/Cap PO (09:53)
[2022-08-28 11:30] LABS: Glucose Point of Care 118 mg/dL (70-110)
[2022-08-28] MEDS: sodium chloride 0.9% 1,000 ML 75 ML IV (11:32)
--- NOTE | 2022-08-28 13:36 | PM.MISC ---
Miscellaneous Note Note: seen today urine culture sent off family at bedside pressure slightly soft started IV fluids will continue to co-manage with orthopedics pt more and more confused, she believes she is 18 years old will start zyprexa
[2022-08-28] MEDS: OLANZapine 5 mg TABLET 2.5 MG PO ×2 (13:44→21:03)
--- NOTE | 2022-08-28 13:48 | PC.NURSE ---
pt having hallucinations...DR Dunn was notified by Kecia MCCOY...see new order
[2022-08-29] VITALS: BP 132/64; PULSE 66; RESP 16; TEMP 36.4; O2SAT 95
[2022-08-29 04:00] VITALS: BP 133/72; PULSE 63; RESP 14; O2SAT 96
[2022-08-29] MEDS: acetaminophen 500 mg Tablet 1000 MG PO (04:00)
[2022-08-29 08:00] VITALS: BP 134/63; PULSE 65; RESP 16; O2SAT 96
--- NOTE | 2022-08-29 09:36 | PM.PN ---
Subjective Subjective: Seen this morning. Patient alert oriented x3. No acute events overnight. Patient's family states that they do not want her to have Tylenol. Vitals/I&O/Wt Last Vital Signs Temp 97.6 F 08/29/22 00:00 Pulse 65 08/29/22 08:00 Resp 16 08/29/22 08:00 BP 134/63 08/29/22 08:00 Pulse Ox 96 08/29/22 08:00 O2 Del Method 08/29/22 08:00 O2 Flow Rate 2 08/27/22 02:15 08/28/22 08/29/22 08/29/22 22:59 06:59 14:59 Intake Total 470 / 1070 60 / 1130 1000 / 1000 Balance 470 / 370 60 / 430 1000 / 1000 Physical Exam Const: COMMON NORMALS: alert; negative for patient oriented x3 GENERAL APPEARANCE: cooperative NUTRITIONAL APPEARANCE: obese ORIENTATION/CONSCIOUSNESS: Yes awake and Yes confused HENMT: COMMON NORMALS: oropharynx normal Neck/C-Spine: COMMON NORMALS: no JVD Resp: COMMON NORMALS: normal respiratory effort EFFORT & INSPECTION: Yes able to speak in complete sentences AUSCULTATION: wheezes left upper Cardio: COMMON NORMALS: no JVD, regular rhythm, S1 normal heart sound present, S2 normal heart sound present and No murmurs present (Cardio) RHYTHM: regular rhythm HEART SOUNDS: S1 normal heart sound present and S2 normal heart sound present GI: COMMON NORMALS: Normal to inspection, nondistended, normoactive bowel sounds present, Soft to palpation and non-tender PALPATION: Yes Soft to palpation Extremity: COMMON NORMALS: no joint enlargement and no pedal edema OTHER: Left knee dressing intact. Neuro: COMMON NORMALS: moves all extremities; negative for patient oriented x3 SENSORIUM/ORIENTATION: Yes alert Skin: COMMON NORMALS: no rashes or lesions noted GENERAL SKIN EXAM: no rashes or lesions noted Urinary Catheter Management: Gaytan: Cath Placed During This Visit: yes, but has since been removed by the nurse Reason for Continuing Indwelling Catheter: Decision to DC Catheter Urinary Catheter Date of Insertion: 08/26/22 Urinary Catheter Time of Insertion: 12:00 Date Urinary Catheter Removed: 08/27/22 Time Urinary Catheter Discontinued: 06:05 Data : 08/28/22 06:44 08/28/22 06:44 A&P Assessment and plan (1) Acute encephalopathy: From initial consult note: Acute encephalopathy with delirium, agitated, tore out her IV, roaming the halls. Requested a dose of haloperidol for her due to the degree of agitation. Additionally will assess UA, chest x-ray. She does have a mildly wheeze in the left lung. Oxygen saturation has been good. One-to-one sitter Acute encephalopathy possibly superimposed on chronic cognitive dysfunction or undiagnosed dementia concern expressed by family. May benefit from additional follow-up after acute illness reassessment by neurology. (2) S/P revision of total knee: Plan Plan for today is to send patient to [facility] for physical therapy. She is postop day 2. Mental status is better. Suspicion of UTI. Patient will be covered with oral Augmentin for 5 days. She did receive Zyprexa one-time dose yesterday. Patient's baseline mental status has been declining over the last few months as per family. Today she is back to baseline. Patient is alert oriented x3. present at bedside. Patient blood pressure is stable. Patient will could be discharged from medical standpoint. Rest of management as per primary surgical team. Attestations Medical Necessity Statement*: Per primary team. Coding Level of Care Code Acute Linseed Oil Boiler for Ender Cee Diagnoses Acute encephalopathy G93.40 S/P revision of total knee Z96.659
[2022-08-29] MEDS: carbidopa-levodopa 25-100mg Tablet 1 EACH PO (09:43)
[2022-08-29] MEDS: midodrine 5 mg TABLET PO (09:43)
[2022-08-29] MEDS: aspirin 325 mg EC Tablet PO (09:44)
[2022-08-29] MEDS: CELEcoxib 200 mg Capsule PO (09:44)
--- NOTE | 2022-08-29 10:53 | PC.SOCIAL ---
Pg 2 IMM Explained to pt Pg 2 IMM. No questions voiced. Provided pt a copy. Initialed, dated, & timed a copy & placed in chart.
[2022-08-29 11:08] LABS: SARS Covid-2 Antigen negative (Negative)
[2022-08-29 12:00] VITALS: BP 122/73; PULSE 70; RESP 16; TEMP 36.4; O2SAT 97
[2022-08-29 13:22] VITALS: BP 122/73; PULSE 70; RESP 16; TEMP 36.4; O2SAT 97
--- NOTE | 2022-08-29 13:26 | PC.NURSE ---
Discharge Note Patient discharged to [facility] via private vehicle accompanied by . Discharge instructions reviewed with patient and/or inside sales representative. Mobile pharmacy medications and/or prescriptions provided. Belongings/home medications returned.
--- NOTE | 2022-08-30 06:40 | PM.DCS ---
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 Admitted for revision of the left total knee. She was, for the most part bedridden and had developed a grade one preessure ulcer over the heel Hospital Course Hospital Course Ms. Snyder had no significant loss of blood and a stable wound. Progress was slow with therapy. The left heel was padded and protected to avoid progression of the pressure ulcer. She had some increased confusion postoperatively and a hospitalists consult was obtained. By 08/29/2022 she was stale for discharge to SNF. Physical Exam Narrative: The left knee incision was free of drainage. She had minimal swelling left leg. Erythematous grade 1 decubital ulcer remained stable over left heel. Urinary Catheter Management: Gaytan: Cath Placed During This Visit: yes, but has since been removed by the nurse Reason for Continuing Indwelling Catheter: Decision to DC Catheter Urinary Catheter Date of Insertion: 08/26/22 Urinary Catheter Time of Insertion: 12:00 Date Urinary Catheter Removed: 08/27/22 Time Urinary Catheter Discontinued: 06:05 Discharge Data Studies Completed and Pending Completed Studies During Hospitalization Category Date Time Status CXRP [XR chest 1V portable [id number]] Routine Exams 08/28/22 05:33 Completed XR knee LT 1-2V 51388 Routine Exams 08/26/22 13:46 Completed Pending at discharge Category Date Time Status Urine Culture Routine Lab 08/28/22 07:40 Results Radiology Impressions Knee X-Ray 08/26/22 13:46 IMPRESSION: Replaced left total knee arthroplasty in expected positioning. Chest X-Ray 08/28/22 05:33 IMPRESSION: Interstitial prominence and chronic granulomatous disease. Laboratory Results WBC 7.4 10^3/uL (4.0-10.0) 08/28/22 06:44 RBC 3.44 10^6/uL (4.1-5.3) L 08/28/22 06:44 Hgb 10.9 g/dL (11.5-15.3) L 08/28/22 06:44 Hct 35.6 % (37.0-47.0) L 08/28/22 06:44 MCV 103.5 fl (81-99) H 08/28/22 06:44 MCH 31.7 pg (28.0-34.0) 08/28/22 06:44 MCHC 30.6 g/dL (30.0-36.0) 08/28/22 06:44 RDW 13.2 % (12.1-15.1) 08/28/22 06:44 Plt Count 215 10^3/cmm (130-400) 08/28/22 06:44 MPV 10.0 fL (7.4-10.4) 08/28/22 06:44 Neut % (Auto) 77.6 % 08/28/22 06:44 Lymph % (Auto) 11.2 % 08/28/22 06:44 [place] % (Auto) 6.6 % 08/28/22 06:44 Eos % (Auto) 3.4 % 08/28/22 06:44 Baso % (Auto) 0.7 % 08/28/22 06:44 Neut # (Auto) 5.72 10^3/uL (1.8-7.7) 08/28/22 06:44 Lymph # (Auto) 0.8 10^3/uL (0.8-4.8) 08/28/22 06:44 [place] # (Auto) 0.5 10^3/uL (0.2-0.9) 08/28/22 06:44 Eos # (Auto) 0.3 10^3/uL (0.0-0.8) 08/28/22 06:44 Baso # (Auto) 0.1 10^3/uL (0.0-0.1) 08/28/22 06:44 Nucleated RBC % (auto) 0 % 08/28/22 06:44 Nucleated RBCs # 0.0 /100WBC 08/28/22 06:44 Sodium 141 mmol/L (136-145) 08/28/22 06:44 Potassium 4.2 mmol/L (3.5-5.1) 08/28/22 06:44 Chloride 105 mmol/L (98-107) 08/28/22 06:44 Carbon Dioxide 24 mmol/L (22-29) 08/28/22 06:44 Anion Gap 16.2 (5-19) 08/28/22 06:44 BUN 24 mg/dL (8-23) H 08/28/22 06:44 Creatinine 1.1 mg/dL (0.5-0.9) H 08/28/22 06:44 GFR Calculation Not Reportable 08/28/22 06:44 Glucose 113 mg/dL (65-115) 08/28/22 06:44 POC Glucose 118 mg/dL (70-110) H 08/28/22 11:27 Calculated Osmolality 297 mOsm/kg (285-295) H 08/28/22 06:44 Calcium 10.1 mg/dL (8.5-10.5) 08/28/22 06:44 Total Bilirubin 0.4 mg/dL (0.15-1.2) 08/28/22 06:44 AST 28 U/L (0-32) 08/28/22 06:44 ALT 6 U/L (0-33) 08/28/22 06:44 Alkaline Phosphatase 92 U/L (35-105) 08/28/22 06:44 Total Protein 6.4 g/dL (6.6-8.7) L 08/28/22 06:44 Albumin 3.3 g/dL (3.5-5.2) L 08/28/22 06:44 Globulin 3.1 g/dL (1.3-4.6) 08/28/22 06:44 Urine Color Yellow (Yellow) 08/28/22 07:40 Urine Appearance Clear (CLEAR) 08/28/22 07:40 Urine pH 5 (5-7) 08/28/22 07:40 Ur Specific [place] 1.015 (1.005-1.030) 08/28/22 07:40 Urine Protein Neg (Negative) 08/28/22 07:40 Urine Glucose (UA) Norm (Normal) 08/28/22 07:40 Urine Ketones Negative (Negative) 08/28/22 07:40 Urine Blood Trace (Negative) H 08/28/22 07:40 Urine Nitrate Negative (Negative) 08/28/22 07:40 Urine Bilirubin Neg (Negative) 08/28/22 07:40 Urine Urobilinogen Norm mg/dL (Negative) 08/28/22 07:40 Ur Leukocyte Esterase Negative (Negative) 08/28/22 07:40 Urine RBC None /hpf (0-2) 08/28/22 07:40 Urine WBC 0-4 /hpf (0-5) H 08/28/22 07:40 Ur Squamous Epith Cells 0-4 /hpf (0-5) H 08/28/22 07:40 Amorphous Sediment Not Reportable 08/28/22 07:40 Urine Bacteria 4+ /hpf (NONE) H 08/28/22 07:40 SARS-CoV-2 Ag (Rapid) negative (Negative) 08/29/22 10:35 Blood Type A Positive 08/26/22 09:28 Rho(D) Type Positive 08/26/22 09:28 Antibody Screen Negative 08/26/22 09:28 Vitals Last Vital Signs Temp 97.6 F 08/29/22 13:22 Pulse 70 08/29/22 13:22 Resp 16 08/29/22 13:22 BP 122/73 08/29/22 13:22 Pulse Ox 97 08/29/22 13:22 O2 Del Method 08/29/22 12:00 O2 Flow Rate 2 08/27/22 02:15 Discharge Plan Discharge Patient Disposition: Xfer SNF Condition: Stable Prescriptions: New acetaminophen 500 mg Tablet 1,000 mg PO Q8H 30 Days Qty: 180 0RF celecoxib 200 mg Capsule 200 mg PO Q12H 14 Days Qty: 28 0RF amoxicillin-pot clavulanate 875-125 mg tablet 1 tab PO BID 5 Days Qty: 10 0RF Continued (DME) Knee immobilizer See Rx Instructions .ROUTE .MEDSUPPLY Qty: 1 0RF Rx Instructions: As directed aspirin 325 mg Tablet 650 mg PO Q6H PRN (Reason: Pain) midodrine 5 mg tablet 5 mg PO QID cyanocobalamin (vitamin B-12) 1,000 mcg/mL Solution 1,000 mcg IM Q30D carbidopa-levodopa 25-100 mg tablet 1 tab PO QID Discontinued naproxen 375 mg tablet,delayed release (DR/EC) 375 mg PO BID PRN (Reason: Pain) Discharge Orders: Discharge Order (Routine); Ordered 08/28/22 Ordered By: Dougie Mccallum Referrals: [facility] [Outside] Dougie Mccallum MD [Physician] - 10/02/22 9:30 am (APPOINTMENT WITH JOSE DAVID BRUNO) Discharge Diet: Advance as tolerated Discharge Activity: Limit activity as instructed Activity Restrictions/Additional Instructions: Okay to shower or sponge bathe. Contact the clinic if any knee drainage. Weight-bear as tolerated left lower extremity Keep pressure off of the left heel Discharge Attestations Time Spent in Discharge Care*: other Quality Metrics Clinical Quality Measures [ No reported AMI, CVA or VTE this stay] Coding Level of Care Code Acute Chg FW DC note Diagnoses Acute encephalopathy G93.40 S/P revision of total knee Z96.659 Decubitus ulcer of left heel L89.629
== END 2022-08-29 13:27 | disposition skilled nursing facility (03) | DRG 488 ==
LOC: MEDSURG 14:26
PROVIDERS: Anesthesiology; Internal Medicine; Specialist; Admitting Provider Orthopaedic Surgery; PCP Family Medicine; Visit Provider Orthopaedic Surgery
PROC: 0SPD09Z Removal of Liner from Left Knee Joint, Open Approach (ICD-10-PCS; principal; 2022-08-26 07:00)
DX: T84.023A Instability of internal left knee prosthesis, initial encounter (principal); F02.811 Dementia in other diseases classified elsewhere, unspecified severity, with agitation; N39.0 Urinary tract infection, site not specified; Y79.2 Prosthetic and other implants, materials and accessory orthopedic devices associated with adverse incidents; Z91.81 History of falling; G20 Parkinson's disease; Z96.82 Presence of neurostimulator; L89.621 Pressure ulcer of left heel, stage 1
CPT/HCPCS: 36415; 36416; 51702; 71045; 73560; 80048; 80053; 81001; 82962; 85018; 85025; 86850; 86900; 87086; 87426; 97110; 97116; 97162; 97167; 97530; 97535; C1776 ×2; J0171; J0690; J1100; J1580; J1885; J2405; J2704; J2710; J2795; J3010; J3490; J7030

== ENCOUNTER → 2022-10-30 12:02 | Outpatient (BNVA) | payer MEDICARE, SELFPAY | PROVIDERS: Referring Provider Specialist; Visit Provider Specialist | DX: G20 Parkinson's disease (principal); R41.0 Disorientation, unspecified; R44.1 Visual hallucinations; Z96.652 Presence of left artificial knee joint; Z96.82 Presence of neurostimulator; Z45.42 Encounter for adjustment and management of neurostimulator | CPT/HCPCS: 36415; 82607; 82746; 95983; 99215 ==

== ENCOUNTER 2022-12-06 10:41 | Emergency (ER) | payer MEDICARE, SELFPAY ==
[2022-12-06 10:52] VITALS: BP 108/55; PULSE 69; RESP 18; TEMP 36.2; O2SAT 94; BMI 30.7
--- NOTE | 2022-12-06 11:20 | ED_ITS ---
HPI - General Adult General: Chief complaint: General Medical Stated complaint: left knee pain Time Seen by Provider: 12/06/22 10:48 Source: patient and family () Mode of arrival: wheelchair Limitations: no limitations History of Present Illness: Patient is a 77-year-old female with an extensive medical history including severe Parkinson's disease (has a deep brain stimulator) being managed by Dr. De La Torre, hypotension/dizziness, encephalopathy/delirum, depression, previous left TKA with previous dislocation and revision here along with her for concerns of left knee pain and concern for a possible UTI. Patient states she has had left knee pain ever since Dr. Mccallum revised the knee back in August 2022. She reportedly has not had any follow-up with him following the surgery. Patient states she is wheelchair-bound secondary to the Parkinson's and the left knee pain. She has not noticed any redness, warmth, or swelling surrounding the joint. states patient is chronically incontinent of urine mainly because she is not able to physically get herself to the bathroom in time. He states over the past few days he has noticed foul-smelling darker than normal urine in her brief. Patient denies dysuria. She is not having any abdominal or flank pain. No fevers. Associated symptoms: Deny chest pain, dyspnea, headache(s), malaise, nausea or vomiting Review of Systems Const: Denies: fever(s), chills, body aches, fatigue or malaise Card: Denies: chest pain Resp: Denies: dyspnea GI: Denies: abdominal pain, nausea, vomiting, diarrhea or change in bowel habits : Reports: urinary incontinence; Denies: flank pain, dysuria, hematuria, vaginal bleeding or pelvic pain Musc: Reports: joint pain (L knee); Denies: neck pain, back pain, extremity pain, extremity swelling or joint swelling Neuro: Denies: headache(s) PFSH ED PFSH: Medical History Parkinson disease Surgical History History of arthroplasty of both knees Status post deep brain stimulator placement Family History Other CAD (coronary artery disease) Cancer Diabetes Stroke Denies family history of Hypertension Social History Smoking and tobacco status: never smoked Alcohol intake: never Physical Exam Const: COMMON NORMALS: no acute distress, patient oriented x3 and alert GENERAL APPEARANCE: cooperative ORIENTATION/CONSCIOUSNESS: Yes awake, Yes oriented to person, Yes oriented to place and Yes oriented to time HENMT: COMMON NORMALS: normocephalic and atraumatic HEAD & SCALP: normal to inspection, normocephalic and atraumatic Resp: COMMON NORMALS: normal respiratory effort Cardio: COMMON NORMALS: regular rate and regular rhythm RATE: regular rate RHYTHM: regular rhythm GI: COMMON NORMALS: Normal to inspection, nondistended, normoactive bowel sounds present, Soft to palpation and non-tender PALPATION: Yes Soft to palpation : COMMON NORMALS: Yes no CVA tenderness BLADDER/KIDNEY EXAM: Yes no CVA tenderness Back/Pelvis: COMMON NORMALS: no CVA tenderness Extremity: COMMON NORMALS: capillary refill normal, no joint enlargement, no calf tenderness and no pedal edema GENERAL: Yes normal exam except as noted LEFT LOWER EXTREMITY: Yes knee joint OTHER: appears to have a very lax patella-no dislocation present; no swelling, redness, warmth to joint Neuro: SHITAL COMA SCALE: document GCS findings Shital coma scale eye open ing: Spontaneous Shital coma scale verbal response: Orientated [place] coma scale motor response: Obey commands [place] coma scale total score: 15 COMMON NORMALS: patient oriented x3 SENSORIUM/ORIENTATION: Yes alert, Yes oriented to person, Yes oriented to place and Yes oriented to time Course Vital Signs: Vital signs: Vital Signs Temperature 97.1 F L 12/06/22 10:52 Pulse Rate 65 12/06/22 12:28 Respiratory Rate 16 12/06/22 12:28 Blood Pressure 121/53 12/06/22 12:28 Pulse Oximetry 97 12/06/22 12:28 Oxygen Delivery Me thod 12/06/22 12:28 MDM - General Adult Medical Decision Making Pts knee XR negative. We will place a case management referral to get her set up with an appointment to see Dr. Mccallum to go over options in regards to her chronic pain. Patient was diagnosed with a UTI. She will be given IM Rocephin prior to discharge and placed on antibiotics at home. Recommend she follow-up with primary care next week for reevaluation. Return to ED precautions given. Lab Data 12/06/22 11:39 12/06/22 11:39 Radiology Impressions Knee X-Ray 12/06/22 12:01 Impression: Intact left knee arthroplasty. Laboratory Results WBC 9.0 10^3/uL (4.0-10.0) 12/06/22 11:39 RBC 4.45 10^6/uL (4.1-5.3) 12/06/22 11:39 Hgb 13.1 g/dL (11.5-15.3) 12/06/22 11:39 Hct 42.2 % (37.0-47.0) 12/06/22 11:39 MCV 94.8 fl (81-99) 12/06/22 11:39 MCH 29.4 pg (28.0-34.0) 12/06/22 11:39 MCHC 31.0 g/dL (30.0-36.0) 12/06/22 11:39 RDW 15.0 % (12.1-15.1) 12/06/22 11:39 Plt Count 189 10^3/cmm (130-400) 12/06/22 11:39 MPV 11.9 fL (7.4-10.4) H 12/06/22 11:39 Neut % (Auto) 78.0 % 12/06/22 11:39 Lymph % (Auto) 12.2 % 12/06/22 11:39 [place] % (Auto) 6.1 % 12/06/22 11:39 Eos % (Auto) 2.4 % 12/06/22 11:39 Baso % (Auto) 1.1 % 12/06/22 11:39 Neut # (Auto) 7.02 10^3/uL (1.8-7.7) 12/06/22 11:39 Lymph # (Auto) 1.1 10^3/uL (0.8-4.8) 12/06/22 11:39 [place] # (Auto) 0.6 10^3/uL (0.2-0.9) 12/06/22 11:39 Eos # (Auto) 0.2 10^3/uL (0.0-0.8) 12/06/22 11:39 Baso # (Auto) 0.1 10^3/uL (0.0-0.1) 12/06/22 11:39 Nucleated RBC % (auto) 0 % 12/06/22 11:39 Nucleated RBCs # 0.0 /100WBC 12/06/22 11:39 Sodium 142 mmol/L (136-145) 12/06/22 11:39 Potassium 4.0 mmol/L (3.5-5.1) 12/06/22 11:39 Chloride 102 mmol/L (98-107) 12/06/22 11:39 Carbon Dioxide 26 mmol/L (22-29) 12/06/22 11:39 Anion Gap 18.0 (5-19) 12/06/22 11:39 BUN 29 mg/dL (8-23) H 12/06/22 11:39 Creatinine 1.3 mg/dL (0.5-0.9) H 12/06/22 11:39 GFR Calculation Not Reportable 12/06/22 11:39 Glucose 122 mg/dL (65-115) H 12/06/22 11:39 Calculated Osmolality 301 mOsm/kg (285-295) H 12/06/22 11:39 Calcium 10.8 mg/dL (8.5-10.5) H 12/06/22 11:39 Total Bilirubin 0.4 mg/dL (0.15-1.2) 12/06/22 11:39 AST 22 U/L (0-32) 12/06/22 11:39 ALT < 5 U/L (0-33) 12/06/22 11:39 Alkaline Phosphatase 131 U/L (35-105) H 12/06/22 11:39 Total Protein 8.2 g/dL (6.6-8.7) 12/06/22 11:39 Albumin 4.6 g/dL (3.5-5.2) 12/06/22 11:39 Globulin 3.6 g/dL (1.3-4.6) 12/06/22 11:39 Urine Color Dark yellow (Yellow) 12/06/22 12:18 Urine Appearance Sl cloudy (CLEAR) A 12/06/22 12:18 Urine pH 5 (5-7) 12/06/22 12:18 Ur Specific [place] 1.020 (1.005-1.030) 12/06/22 12:18 Urine Protein Trace (Negative) 12/06/22 12:18 Urine Glucose (UA) Norm (Normal) 12/06/22 12:18 Urine Ketones 1+ (Negative) H 12/06/22 12:18 Urine Blood 2+ (Negative) H 12/06/22 12:18 Urine Nitrate Negative (Negative) 12/06/22 12:18 Urine Bilirubin 1+ (Negative) H 12/06/22 12:18 Urine Urobilinogen 4 mg/dL (Negative) H 12/06/22 12:18 Ur Leukocyte Esterase 2+ (Negative) H 12/06/22 12:18 Urine RBC 0-4 /hpf (0-2) H 12/06/22 12:18 Urine WBC 15-25 /hpf (0-5) H 12/06/22 12:18 Ur Squamous Epith Cells 10-15 /hpf (0-5) H 12/06/22 12:18 Amorphous Sediment Trace /hpf 12/06/22 12:18 Urine Bacteria 1+ /hpf (NONE) H 12/06/22 12:18 Hyaline Casts Rare /lpf 12/06/22 12:18 Urine Yeast Trace /hpf 12/06/22 12:18 Discharge Plan Discharge Patient Disposition: Home Clinical Impression: Chronic pain of left knee, Acute cystitis with hematuria Condition: Stable Prescriptions: New cefdinir 300 mg capsule 300 mg PO BID 10 Days Qty: 20 0RF No Action (DME) Knee immobilizer See Rx Instructions .ROUTE .MEDSUPPLY Qty: 1 0RF Rx Instructions: As directed aspirin 325 mg Tablet 650 mg PO TID midodrine 5 mg tablet 5 mg PO BID carbidopa-levodopa 25-100 mg tablet 1 tab PO BID Discharge Orders: Discharge ED (Routine); Ordered 12/06/22 Ordered By: Deja Mcguire Patient Instructions: Urinary Tract Infection in Women (DC) Activity Restrictions/Additional Instructions: As we discussed I will place a referral with case management to try to get her a follow-up appointment with Dr. Mccallum to discuss her chronic pain in that left knee. Patient was diagnosed with a urinary tract infection/UTI on today's visit. You need to fill her antibiotics and start them immediately. She needs to return to the emergency department for severe abdominal pain, flank pain, fevers greater than 100.4, repetitive episodes of vomiting, inability to tolerate your antibiotics, generally feeling worse or unwell, or any other concerns you may have. Please follow-up with your primary care provider next week for re-evaluation. Coding Level of Care Code ED Multiple Punch Press Operator for Ender Cee
[2022-12-06 11:46] LABS: Basophils # 0.1 10^3/uL (0.0-0.1); Basophils % 1.1 %; Eosinophils # 0.2 10^3/uL (0.0-0.8); Eosinophils % 2.4 %; Hematocrit 42.2 % (37.0-47.0); Hemoglobin 13.1 g/dL (11.5-15.3); Lymphocytes # 1.1 10^3/uL (0.8-4.8); Lymphocytes % 12.2 %; Mean Corpuscular Hemoglobin 29.4 pg (28.0-34.0); Mean Corpuscular Volume 94.8 fl (81-99); Mean Platelet Volume 11.9 fL (7.4-10.4); Monocytes # 0.6 10^3/uL (0.2-0.9); Monocytes % 6.1 %; Neutrophils # 7.02 10^3/uL (1.8-7.7); Nucleated Red Blood Cells % 0 %; Platelet Count 189 10^3/cmm (130-400); Red Blood Count 4.45 10^6/uL (4.1-5.3)
--- NOTE | 2022-12-06 12:01 | XR_ITS ---
WS: [id number] Left knee, 3 views, 12/06/2022 Clinical Data: pain Comparison: Left knee, 08/26/2022 Findings: The left knee arthroplasty remains in good position. There are long stems in both the femoral and tib ial components. No periprosthetic fractures or loosening is seen. The soft tissues are not remarkable. XR/XR knee LT 3V* [id number] Impression: Intact left knee arthroplasty.
[2022-12-06 12:04] LABS: Alanine Aminotransferase < 5 U/L (0-33); Albumin Level 4.6 g/dL (3.5-5.2); Alkaline Phosphatase 131 U/L (35-105); Aspartate Amino Transferase 22 U/L (0-32); Blood Urea Nitrogen 29 mg/dL (8-23); Calcium 10.8 mg/dL (8.5-10.5); Carbon Dioxide 26 mmol/L (22-29); Chloride 102 mmol/L (98-107); Globulin 3.6 g/dL (1.3-4.6); Glucose 122 mg/dL (65-115); Osmolality Calculated 301 mOsm/kg (285-295); Sodium 142 mmol/L (136-145); Total Bilirubin 0.4 mg/dL (0.15-1.2); Total Protein 8.2 g/dL (6.6-8.7)
[2022-12-06 12:28] VITALS: BP 121/53; PULSE 65; RESP 16; O2SAT 97
[2022-12-06 13:17] LABS: Bilirubin Urine 1+ (Negative); Blood Urine 2+ (Negative); Glucose Urine UA Norm (Normal); Ketones Urine 1+ (Negative); Leukocyte Esterase Urine 2+ (Negative); Nitrate Urine Negative (Negative); Protein Urine Trace (Negative); Urine Color Dark Yellow (Yellow); Urobilinogen Urine 4 mg/dL (Negative); pH Urine 5 (5-7)
[2022-12-06 13:18] LABS: Add Urine Microscopic? YES
[2022-12-06 13:19] LABS: Add Urine Culture? No; Amorphous Sediment Urine TRACE /hpf; Bacteria Urine 1+ /hpf; Hyaline Casts Urine RARE /lpf; RBC Urine 0-4 /hpf (0-2); WBC Urine 15-25 /hpf (0-5)
[2022-12-06] MEDS: cefTRIAXone 1,000 MG in water for injection-sterile 2.1 ML 2 MG IM (13:50)
[2022-12-06 14:06] VITALS: BP 121/53; PULSE 65; RESP 16; O2SAT 97
--- NOTE | 2022-12-09 09:17 | DCPLANNER ---
Addendum entered by Earnestine Alcantara 01/08/23 08:59: Patient had a follow up appointment scheduled with ortho - patient did attend appointment Addendum entered by Earnestine Alcantara 12/26/22 11:54: Patient has an appointment scheduled for Saturday, January 07, 2023 at 2:[address] Mccallum at ortho. Clinic will call patient with appointment information. Original Note: shipping receiving manager had message to schedule a follow up appointment for patient with ortho. shipping receiving manager had message to schedule a follow up appointment for patient with ortho. Patients information will be printed and reviewed. Clinic will call patient with appointment information.
== END 2022-12-06 14:08 | disposition home or self-care (01) ==
PROVIDERS: Emergency Provider Physician Assistant
DX: G89.29 Other chronic pain (principal); M25.562 Pain in left knee; N30.01 Acute cystitis with hematuria; G20 Parkinson's disease; Z96.653 Presence of artificial knee joint, bilateral
CPT/HCPCS: 73562; 80053; 81001; 85025; 96372; 99284; J0696

== ENCOUNTER → 2023-01-07 14:21 | Outpatient (BNVA) | payer MEDICARE, SELFPAY | PROVIDERS: Visit Provider Orthopaedic Surgery | DX: S83.105A Unspecified dislocation of left knee, initial encounter (principal); X58.XXXA Exposure to other specified factors, initial encounter; Z96.652 Presence of left artificial knee joint | CPT/HCPCS: 73562; 99213 ==

== ENCOUNTER 2023-01-13 14:32 | Inpatient (IN) | payer MEDICARE, SELFPAY ==
[2023-01-10 14:06] VITALS: BMI 28.2
[2023-01-13] VITALS (13 sets, daily range): BP systolic 91–145; BP diastolic 63–93; PULSE 52–75; RESP 12–20; TEMP 36.1–37; O2SAT 93–100
--- NOTE | 2023-01-13 12:22 | P.HP_ITS ---
Same Day Surgery H&P Indication for Procedure/HPI DATE OF PROCEDURE: January 13, 2023 CHIEF COMPLAINT/INDICATIONFOR SURGICAL PROCEDURE: Dislocated left total knee PREOP DIAGNOSIS: Dislocated left total knee PLANNED PROCEDURE: Operation Date: 01/13/23 13:30 Proposed Procedures p closed reduction vs open reduction with poly exchange left knee/ 39645,Z96 .659, S83.106A(Left) - Dougie Mccallum MD s Polyethelene Exchange Knee(Left) - Dougie Mccallum MD Patient seen in clinic on 01/07/2023 with a dislocated left total knee. History revision left total knee DOS: 08/26/22 for stability with placement of a constrained tibial insert.. Patient and are poor historians. She states that she continues to have pain in the knee.? They did not keep any follow-up appointments.? They were seen in the emergency room with complaints of left knee pain.? Radiographs on that 12/06/2022 visit showed satisfactory position of her components.? She comes in today complaining of continued pain.? She has been unable to ambulate.? She is here with her and neither can describe any history of traum.they are both very confused Medications/Allergies* Home Medications Medication Instructions Recorded Confirmed Type aspirin 325 mg tablet 650 mg PO TID 08/27/22 01/10/23 History carbidopa 25 mg-levodopa 100 mg 1 tab PO BID 08/27/22 01/10/23 History tablet midodrine 5 mg tablet 5 mg PO BID 08/27/22 01/10/23 History Allergies/Adverse Reactions Allergy/AdvReac Type Severity Reaction Status Date / Time acetaminophen AdvReac Unknown ALTERED Verified 01/10/23 14:05 PERSONALITY Pertinent History/Comorbid Conditions* Medical History (Updated 12/14/22 @ 00:00 by JOSE MARIA Jain) Parkinson disease Surgical History (Updated 08/28/22 @ 06:10 by Jb Johnson MD) History of arthroplasty of both knees Status post deep brain stimulator placement Family History (Updated 12/27/19 @ 16:08 by Leticia Priest LPN) Diabetes CAD (coronary artery disease) Cancer Stroke Denies family history of Hypertension Social History Smoking and tobacco status: never smoked Alcohol intake: never Pertinent Exam Findings alert, oriented x 3, clear to auscultation bilaterally, regular rate & rhythm and operative site marked On examination Ms. Snyder's left knee she has clear posterior position of her tibia relative to her femur. She lacks 30 degrees short of full extension and can flex to approximately 100 degrees He has a palpable left dorsalis pedis pulse Will flex and extend her toes and her ankle without motor deficit Recommendations Surgery/Procedure today Coding Level of Care Code Acute Code for Chg Fwd
[2023-01-13] MEDS: CELEcoxib 200 mg Capsule 400 MG PO (12:37)
[2023-01-13] MEDS: sodium chloride 0.9% 1,000 ML 30 ML IV (12:38)
[2023-01-13] MEDS: ceFAZolin 2,000 MG in sodium chloride 0.9% (plus) 50 ML 100 MG IV ×2 (13:00→20:06)
[2023-01-13] MEDS: tranexamic acid 1,000 mg/10mL SDV 1000 MG IV (13:25)
--- NOTE | 2023-01-13 14:03 | ANES.PREANE2 ---
Pre-Anesthetic Assessment Height/Weight: Height 1.68 m Weight 79.379 kg Temp Pulse Resp BP Pulse Ox O2 Del Method 97.0 F L 75 18 91/65 95 01/13/23 11:58 01/13/23 11:58 01/13/23 11:58 01/13/23 11:58 01/13/23 11:58 01/13/23 12:03 Preop Diagnosis: Dislocated left total knee Operation Date: 01/13/23 13:30 Proposed Procedures p closed reduction vs open reduction with poly exchange left knee/ 25961,Z96.659, S83.106A(Left) - Dougie Mccallum MD s Polyethelene Exchange Knee(Left) - Dougie Mccallum MD Familial anesthetic complications: none Was Beta Jorge taken within 24 hours: N/A Was Clonidine taken within 24 hours: N/A Last intake: Intake Last Liquid Date 01/13/23 Last Liquid Time 07:30 Last Solid Date 01/12/23 Last Solid Time 19:00 Social No alcohol and No tobacco Exam alert, oriented x 3, clear to auscultation bilaterally and regular rate & rhythm Airway Submandibular: within normal limits Cervical ROM: within normal limits Mallampati: Class II Dentition: chipped CV/HEM Coronary Artery Disease LBBB Metabolic Morbid Obesity Musc/sk Osteoarthritis/DJD and Weakness Neuropsych Parkinson's Anesthetic Plan ASA status: 3 Anesthesia: Regional (specify below) (SAB with adductor blk) Medications/Allergies Home Medications Medication Instructions Recorded Confirmed Last Taken Type Knee immobilizer #1 ea 04/03/21 01/07/23 Unknown Rx aspirin 325 mg tablet 650 mg PO TID 08/27/22 01/10/23 01/12/23 History carbidopa 25 mg-levodopa 100 mg 1 tab PO BID 08/27/22 01/10/23 01/12/23 History tablet midodrine 5 mg tablet 5 mg PO BID 08/27/22 01/10/23 01/12/23 History Allergies Allergy/AdvReac Type Severity Reaction Status Date / Time acetaminophen AdvReac Unknown ALTERED Verified 01/10/23 14:05 PERSONALITY Current Medications Generic Name Dose Route Start Last Admin Trade Name Freq PRN Reason Stop Dose Admin Sodium Chloride 1,000 mls @ 30 mls/hr 01/13/23 11:45 01/13/23 12:38 Sodium Chloride 0.9% IV 01/14/23 11:44 30 mls/hr .Q24H RAY Administration PFSH Anesthesia Medical History Parkinson disease Surgical History History of arthroplasty of both knees Status post deep brain stimulator placement Family History Other CAD (coronary artery disease) Cancer Diabetes Stroke Denies family history of Hypertension Social History Smoking and tobacco status: never smoked Alcohol intake: never Data Anesthesia Cardiac Studies: Echocardiogram 07/29/22 Anesthesia Procedures Nerve Block Nerve Block 1: Main Anesthesia: spinal anesthesia block Time Out Performed: Yes Consent: requested by attending/covering physician, from patient, risks and benefits reviewed and patient agrees to proceed Nerve block location: adductor canal (left) Anesthesia monitors applied: pulse oximetry, EKG, BP cuff and oxygen Nerve block position: supine Anesthetic Used: ropivicaine 0.5% Amount of anesthesia used (mL): 20 Ultrasound used to: recognize landmarks Nerve Stimulator Used?: No Interscalene/Femoral BLK: 4 stimuplex 21 g needle used for position and inplane approach Injection: neg aspiration of heme Patient Tolerated Procedure: well Complications: none
--- NOTE | 2023-01-13 14:17 | PM.OP ---
Operative Report Date of procedure: January 13, 2023 Pre-op diagnosis: Preop Diagnosis Dislocated left total knee Post-op diagnosis: same Procedure done: Reduction dislocated left total knee Pathology: none sent Surgeon: Dougie Mccallum Anesthesia: Nerve Block (Spinal) Estimated blood loss (mL): 10 Tourniquet time (min): 36 Findings: The patient had a posterior dislocation of the left tibia on the Condition: stable Disposition: PACU Procedure: The patient was taken the operating room and given 2 g of Ancef. She was given a spinal anesthesia and an abductor canal block. Timeout was performed. Initial efforts were attempted a closed reduction. The knee was placed in the hyperflexion and an anterior directed force was applied on the tibia however reduction was unsuccessful. Next the tourniquet was inflated to 350 mmHg. The knee was opened through the previous anterior scar and the knee was entered through a medial parapatellar approach. The knee could be flexed and a elevator used to guide the tibial post into the intercondylar notch. The knee was brought again through a range of motion seemingly with a stable knee. There is no instability to varus or valgus stress. The notch was inspected with no obvious interposed Ment or other material. Osteotome was used to further remove cement in the intercondylar notch. The knee was again brought through range of motion and felt to be stable. The extensor retinaculum was closed with 1 strata fix and #1 Ethibond. The subcutaneous tissues were closed with 2-0 Vicryl. Skin edges very thin and better closed with kartik. The incision was covered with Xeroflo gauze and a compressive Tubigrip. The patient was extubated taken recovery in stable condition.
--- NOTE | 2023-01-13 14:51 | XR_ITS ---
WS: [id number] Exam: XR knee LT 1-2V [id number] Date/Time of Exam: 01/13/2023 2:51 PM Reason For Exam: surgery Comparison 01/07/2023. Left total knee prosthesis is in satisfactory position without fracture or loosening. No dislocation. Postoperative changes in the areas adjacent soft tissues. Anterior surgical skin clips. XR/XR knee LT 1-2V [id number] IMPRESSION: 1. Left total knee replacement in satisfactory position.
--- NOTE | 2023-01-13 15:39 | ANE.PACU2 ---
Inpatient post-anesthesia follow up: Airway intact: Yes Vital signs: Temperature 97.4 F Pulse Rate 68 Respiratory Rate 19 Blood Pressure 145/67 Pulse Oximetry 93 Oxygen Delivery Me thod Room Air Oxygen Flow Rate 3 Fraction of Inspir ed Oxygen Hydration adequate: Yes Nausea and vomiting: No Pain level: 1 Mental status: Baseline
[2023-01-13] MEDS: sodium chloride 0.9% 1,000 ML 100 ML IV (16:43)
[2023-01-13] MEDS: carbidopa-levodopa 25-100mg Tablet 1 EACH PO (18:16)
[2023-01-13] MEDS: CELEcoxib 200 mg Capsule PO (18:16)
[2023-01-13] MEDS: sennosides-docusate Tablet 2 TAB PO (18:16)
[2023-01-14] VITALS (7 sets, daily range): BP systolic 109–163; BP diastolic 63–77; PULSE 71–84; RESP 16–18; TEMP 36.4–37.1; O2SAT 94–98
[2023-01-14] MEDS: sodium chloride 0.9% 1,000 ML 100 ML IV ×2 (03:34→20:59)
[2023-01-14] MEDS: ceFAZolin 2,000 MG in sodium chloride 0.9% (plus) 50 ML 100 MG IV ×2 (05:11→15:09)
[2023-01-14 05:46] LABS: Hemoglobin 11.2 g/dL (11.5-15.3)
--- NOTE | 2023-01-14 08:31 | PC.PHAR ---
Addendum entered by Amie Villarreal 01/14/23 09:45: pts gene states the pt takes the medications entered-gene states the pt takes all her meds four times a day including her aspirin 325mg takes 2 tabs qid Original Note: pts michell takes care of her medications-called [phone] gene no voicemail box set up-
--- NOTE | 2023-01-14 09:24 | PM.PN ---
Subjective Subjective: Bella is a bit confused but has no specific complaints. She is seen with her who states that aspirin has been the best for pain relief with the least amount of delirium Vitals/I&O/Wt Last Vital Signs Temp 98.4 F 01/14/23 04:04 Pulse 84 01/14/23 07:50 Resp 18 01/14/23 04:04 BP 137/70 01/14/23 04:04 Pulse Ox 96 01/14/23 07:50 O2 Del Method 01/13/23 17:11 O2 Flow Rate 3 01/13/23 20:00 01/13/23 01/14/23 01/14/23 22:59 06:59 14:59 Intake Total 870 / 920 1170 / 2090 Balance 870 / 915 1170 / 2084 Physical Exam Narrative: He is again pulled off her second dressing that I placed this morning. Her incision is clean and free of drainage. Data 01/14/23 05:33 A&P Assessment and plan (1) S/P revision of total knee: Incision looks benign. Her knee is reduced. I discussed placement options with the family. They would like to consider custodial. We will consult protective services social worker. Attestations Medical Necessity Statement*: Awaiting custodial Coding Level of Care Code Acute Code for Chg Fwd Diagnoses S/P revision of total knee Z96.659
[2023-01-14] MEDS: carbidopa-levodopa 25-100mg Tablet 1 EACH PO ×2 (10:15→17:40)
[2023-01-14] MEDS: sennosides-docusate Tablet 2 TAB PO ×2 (10:15→17:40)
[2023-01-14] MEDS: midodrine 5 mg TABLET PO ×2 (10:15→17:40)
--- NOTE | 2023-01-14 10:29 | PC.CHAP ---
Pastoral Care Encounter/Spiritual Assessment Type of Contact [x] Declined fitter and turner visit [] Patient/Family/Request visit [] Outpatient visit [] Follow-up visit [] Physician referral [] Code/Alert [] Routine visit [] Staff referral [] Actively dying [] Patient sleeping [] Family support [] [] Out of room [] Palliative care [] [] Receiving care in room [] Pre-surgical visit [] Trauma [] Long length of stay [] ICU visit [] Other: Relational/Emotional Strength [] Patient feels connected with others/family/visitors/staff [x] Distress [] Loneliness/isolation [] Abandonment Spirituality of Patient [] Person of Cel[place] [] Attends Religion of their [place] [] Believes in Prayer [] Reads Bible or Rastafari materials [x] There are Spiritual issues to be addressed Patient Admitting Clerk Interventions [] Prayer [] Active listening [] Non-anxious presence [x] Spiritual/emotional support [] Crisis/trauma care [] Spiritual counseling [] Bereavement support [] Provided bereavement packet [] Provided Bible/devotional materials [] Provided toy/stuffed animal, coloring book to patient or family member [] Provided Communion [] Anointing/[place] [] Salvation [x] Completed spiritual assessment [] Other: Impact on Illness or Injury [] Angry [] Fearful [] Anxious [] Often cries [] Exhaustion [] Unable to work [] Unable to attend yarsanism [] Unable to walk/stand [] Unable to read [] Unable to drive [] Unable to eat/drink [] Unable to sleep [] Unable to be with family [] Patient intubated [] Other: Summary Time spent with patient 5 min
[2023-01-15 03:20] VITALS: BP 114/71; PULSE 78; RESP 17; TEMP 37.2; O2SAT 97
--- NOTE | 2023-01-15 06:42 | PC.NURSE ---
pt very confused and impulsive, at 0130 pt was attempting to pull at her IV, this nurse wrapped IV site with Kerlix and coban, pt then attempted to pull at her kartik in her knee, this nurse cleaned site and applied pajama bottoms so pt could not have access to Knee. Pt ended up removing Kerlix and Coban on IV Site and pulled IV from arm and throw it across the room. This nurse attempted to restart IV x2 and each time the pt would hit at staff and pull at IV catheter. pt does not have IV access at this time due to the pt becoming combative with staff. Oncoming shift notified of no IV access.
[2023-01-15 07:48] VITALS: BP 116/65
--- NOTE | 2023-01-15 11:06 | XR_ITS ---
WS: [id number] Exam: XR knee LT 1-2V [id number] Date/Time of Exam: 01/15/2023 11:13 AM Reason For Exam: swelling Comparison 01/13/2023. Total knee prosthesis is noted. There is anterior and medial dislocation of the femoral component in relationship to the proximal tibia. No obvious fracture seen. Soft tissue air and edema noted about t he knee probably secondary to recent surgery. Anterior surgical skin clips. XR/XR knee LT 1-2V 70005 IMPRESSION: 1. Dislocated total knee prosthesis as noted above. No obvious fracture. 2. Edema and soft tissue air about the knee. Anterior surgical skin clips.
--- NOTE | 2023-01-15 11:18 | PC.NURSE ---
Notified Dr. Mccallum patient is not awake enough nor will the patient wake up enough to take medications this am. Patient does respond admitting not wanting to take them. Patient has also been stuck multiple times over the last couple of days for IVs. Patient inevitably pulls them out even if secured with a wrap. Dr. Mccallum is notifying a hospitalist to see the patient.
--- NOTE | 2023-01-15 11:23 | PC.NURSE ---
Patient had an allergy band. Patient insist on pulling on it. For a safety concern, Allergy band is placed on the end of the bed.
--- NOTE | 2023-01-15 12:21 | PC.OT ---
OT TREATMENT HELD THIS DATE DUE TO KNEE DISLOCATION AND PATIENT NOT ALERT TO PARTICIPATE IN THERAPY. WILL ATTEMPT AGAIN TOMORROW.
--- NOTE | 2023-01-15 15:26 | XRR_ITS ---
PROCEDURE INFORMATION: Exam: XR Chest Exam date and time: 01/15/2023 4:12 PM Age: 77 years old Clinical indication: Shortness of breath; Additional info: SOB TECHNIQUE: Imaging protocol: Radiologic exam of the chest. Views: 1 view. COMPARISON: CR XR chest 1V portable [id number] 08/28/2022 6:00 AM FINDINGS: Tubes, catheters and devices: Electronic device overlying the right chest. Lungs: Unremarkable. No consolidation. Pleural spaces: Unremarkable. No pleural effusion. No pneumothorax. Heart/Mediastinum: Unremarkable. No cardiomegaly. Bones/joints: Bilateral total shoulder arthroplasties. Degenerative changes of the spine. XR/XR chest 1V portable [id number] IMPRESSION: No acute abnormality.
--- NOTE | 2023-01-15 15:26 | ECG_ITS ---
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 Measurements Intervals [place] Rate: 70 P: 54 [place]: 190 QRS: -20 QRSD: 165 T: 126 QT: 430 QTc: 465 Interpretive Statements SINUS RHYTHM LEFT BUNDLE BRANCH BLOCK [120+ ms QRS DURATION, 80+ ms Q/S IN V1/V2, 85+ ms R IN I/aVL/V5/V6] Compared to ECG 08/16/2022 13:59:02 No significant changes Electronically Signed On 01-15-2023 23:54:55 CDT by Arron Bourgeois M.D. [id number]
[2023-01-15 15:42] VITALS: BP 130/68; PULSE 72; RESP 16; TEMP 37.1
--- NOTE | 2023-01-15 15:42 | CTR_ITS ---
PROCEDURE INFORMATION: Exam: CT Head Without Contrast Exam date and time: 01/15/2023 4:05 PM Age: 77 years old Clinical indication: Altered mental status/memory loss; Other: AMS after surgery; Prior surgery; Surgery date: 6+ months; Surgery type: Shunts TECHNIQUE: Imaging protocol: Computed tomography of the head without contrast. Radiation optimization: All CT scans at this facility use at least one of these dose optimization techniques: automated exposure control; mA and/or kV adjustment per patient size (includes targeted exams where dose is matched to clinical indication); or iterative reconstruction. REPORTING DATA: Count of CT and Cardiac NM exams in prior 12 months: This patient has received 0 known CTs and 0 known cardiac nuclear medicine studies in the 12 months prior to the current study. COMPARISON: CT head wo con* [id number] 05/17/2019 1:31 PM RADIATION DOSE METRICS: Total DLP (mGy-cm): 1046.48 FINDINGS: Tubes, catheters and devices: Bilateral deep brain stimulator wires from bilateral frontal approach.The lowery-white differentiation is maintained. No hemorrhage. No edema.There are mild periventricular and subcortical lucencies consistent with chronic microvascular ischemic changes. Brain: See Tubes, catheters and devices finding. Cerebral ventricles: No ventriculomegaly. Paranasal sinuses: Visualized sinuses are unremarkable. No fluid levels. Mastoid air cells: Visualized mastoid air cells are well aerated. Bones/joints: Unremarkable. No acute fracture. Soft tissues: Unremarkable. CT/CT head wo con* [id number] IMPRESSION: No acute intracranial abnormality. Chronic microvascular ischemic changes.
--- NOTE | 2023-01-15 15:44 | PM.CONSULT ---
Providers/Reason For Consult Consulting Physician/Specialty*: orthopedic Reason for Consult*: ams Attending Physician: Dougie Mccallum MD Primary Care Provider: Neli De La Torre MD History of Present Illness History of Present Illness Leonor Snyder is a 77 year old female Review of Systems General: Reports: ROS unobtainable due to medical condition and ROS unobtainable due to mental status Medications/Allergies Home Medications Medication Instructions Recorded Confirmed Last Taken Type Knee immobilizer #1 ea 04/03/21 01/14/23 Unknown Rx aspirin 325 mg tablet 650 mg PO QID 08/27/22 01/14/23 12/06/22 History carbidopa 25 mg-levodopa 100 mg 1 tab PO QID 08/27/22 01/14/23 12/06/22 History tablet midodrine 5 mg tablet 5 mg PO QID 08/27/22 01/14/23 12/06/22 History quetiapine 25 mg tablet (Seroquel) 25 mg PO DAILY 30 days #30 tabs 01/14/23 01/14/23 Unknown Rx Allergies Allergy/AdvReac Type Severity Reaction Status Date / Time acetaminophen AdvReac Unknown ALTERED Verified 01/10/23 14:05 PERSONALITY Current Medications Generic Name Dose Route Start Last Admin Trade Name Freq PRN Reason Stop Dose Admin Carbidopa/Levodopa 1 each 01/13/23 18:00 01/15/23 11:22 Carbidopa-Levodopa 25-100mg Tablet PO Not Given BID RAY Sodium Chloride 1,000 mls @ 100 mls/hr 01/13/23 15:25 01/15/23 06:52 Sodium Chloride 0.9% IV Not Given .Q10H RAY Midodrine 5 mg 01/13/23 18:00 01/15/23 11:23 Midodrine 5 Mg Tablet PO Not Given BID RAY Senna/Docusate Sodium 2 tab 01/13/23 18:00 01/15/23 11:23 Sennosides-Docusate Tablet PO Not Given BID RAY PFSH Acute PFSH: Medical History Parkinson disease Surgical History History of arthroplasty of both knees Status post deep brain stimulator placement Family History Other CAD (coronary artery disease) Cancer Diabetes Stroke Denies family history of Hypertension Social History Smoking and tobacco status: never smoked Alcohol intake: never Vitals/I&O/Wt Last Vital Signs Temp 99.0 F 01/15/23 03:20 Pulse 78 01/15/23 03:20 Resp 17 01/15/23 03:20 BP 116/65 01/15/23 07:48 Pulse Ox 97 01/15/23 03:20 O2 Del Method 01/15/23 03:20 O2 Flow Rate 3 01/14/23 20:00 Physical Exam Const: COMMON NORMALS: no acute distress EXAM LIMITATIONS: altered mental status ORIENTATION/CONSCIOUSNESS: Yes awake and Yes oriented to person; not oriented to place and not oriented to time HENMT: COMMON NORMALS: normocephalic HEAD & SCALP: normocephalic Eye: COMMON NORMALS: Equal, round and reactive pupils present PUPIL: Yes Equal, round and reactive pupils present Lymph: LYMPHATIC: no lymphadenopathy noted Resp: COMMON NORMALS: normal respiratory effort, No retractions, No use of accessory muscles and clear to auscultation bilaterally AUSCULTATION: clear to auscultation bilaterally Cardio: COMMON NORMALS: regular rate, regular rhythm, S1 normal heart sound present and S2 normal heart sound present RATE: regular rate RHYTHM: regular rhythm HEART SOUNDS: S1 normal heart sound present and S2 normal heart sound present GI: COMMON NORMALS: Normal to inspection, nondistended, normoactive bowel sounds present, Soft to palpation and non-tender PALPATION: Yes Soft to palpation : COMMON NORMALS: Yes no CVA tenderness BLADDER/KIDNEY EXAM: Yes no CVA tenderness Back/Pelvis: COMMON NORMALS: no CVA tenderness Extremity: COMMON NORMALS: no calf tenderness and no pedal edema Neuro: SENSORIUM/ORIENTATION: Yes oriented to person, No oriented to place and No oriented to time OTHER: Does not follow neurologic Data 01/14/23 05:33 A&P Assessment and plan (1) Altered mental status: Plan Altered mental status -During her prior hospitalization she also had issues with confusion -Has Parkinson's disease -Has underlying dementia Plan -Will neurochecks, aspiration precautions -CT of the head -CBC, CMP, TSH, mag, Phos, troponin series, -Blood cultures -Urinalysis -Monitor mentation closely -Is on Sinemet continue, continue Seroquel -Full code -DVT prophylaxis, and pain control as per orthopedic team Consult Attestations Medical Necessity Statement: Patient requires hospitalization, for knee surgery now with altered mental status Coding Level of Care Code Acute Code for Chg Fwd Diagnoses Altered mental status R41.82
[2023-01-15 16:00] VITALS: BP 130/68; PULSE 72; RESP 16; TEMP 37.1
--- NOTE | 2023-01-15 16:07 | P.PN_ITS ---
Subjective Subjective: Was examined at the bedside. She is very sedate but arousable. Apparently it was a fairly wild evening last night. She was compatible and throwing her left leg about. She discontinued her dressings and her IV. Vitals/I&O/Wt Last Vital Signs Temp 99.0 F 01/15/23 03:20 Pulse 78 01/15/23 03:20 Resp 17 01/15/23 03:20 BP 116/65 01/15/23 07:48 Pulse Ox 97 01/15/23 03:20 O2 Del Method 01/15/23 03:20 O2 Flow Rate 3 01/14/23 20:00 Physical Exam Narrative: On examination of Leonor's left knee her incision is clean and free of drainage. She appears to again have posterior displacement of her tibia re lative to her femur consistent with a dislocation. Is a palpable left dorsalis pedis pulse. She will not awaken enough for neurological Data 01/14/23 05:33 Xray Ortho: My impression: Views of the left knee were obtained. She again has a posterior dislocation of her tibia relative to her femur. A&P Assessment and plan (1) Status post revision of total replacement of left knee: (2) Dislocation of left knee: Bella chapman has again dislocated her left knee. It is clear that the constrained knee will not provide sufficient stability. I discussed options with the family, in particular a long discussion with the patient's son. I think we are going to have to unfortunately revise this prosthesis to a hinged knee or convert her to a knee arthrodesis or amputation. The family still has hopes that she will regain ambulatory status and amputation does not seem like a reasonable option. They are concerned that with an arthrodesis she would never be able to regain ambulatory status. I discussed the magnitude of revision knee surgery with them. Of course they are familiar with this with the last operation. Discussed risks including bleeding, infection, vascular and neurological injury, deep venous thromboses and pulmonary emboli, and the possible need for further procedures. I discussed anesthetic risk. They understand and agree to proceed with the above procedure. I will have the hinged knee components brought in we will try and proceed tomorrow. Attestations Medical Necessity Statement*: Surgery tomorrow. Coding Level of Care Code Acute Code for Chg Fwd Diagnoses Status post revision of total replacement of left knee Z96.652 Dislocation of left knee S83.105A
[2023-01-15 16:27] LABS: Basophils # 0.1 10^3/uL (0.0-0.1); Basophils % 1.3 %; Eosinophils # 0.4 10^3/uL (0.0-0.8); Eosinophils % 5.9 %; Hematocrit 35.1 % (37.0-47.0); Hemoglobin 11.1 g/dL (11.5-15.3); Lymphocytes # 1.3 10^3/uL (0.8-4.8); Lymphocytes % 21.5 %; Mean Corpuscular HGB Conc 31.6 g/dL (30.0-36.0); Mean Corpuscular Hemoglobin 29.6 pg (28.0-34.0); Mean Corpuscular Volume 93.6 fl (81-99); Mean Platelet Volume 11.5 fL (7.4-10.4); Monocytes # 0.5 10^3/uL (0.2-0.9); Monocytes % 9.1 %; Nucleated Red Blood Cells % 0 %; Platelet Count 188 10^3/cmm (130-400); Red Blood Count 3.75 10^6/uL (4.1-5.3); Red Cell Distribution Width 15.7 % (12.1-15.1)
[2023-01-15 16:30] LABS: Ammonia 13 umol/L (11-51)
[2023-01-15 16:40] LABS: ABG PCO2 37.2 mmHg (35-45); ABG PH Result 7.45 (7.35-7.45); Arterial Blood Gas Hematocrit 32.1 % (37-47); Base Excess ABG 1.6 mmol/L (-2.0-2.0); Blood Gas Allen Test Pos; Blood Gas Operator Identificat glc; Blood Gas Sample Site Radial, right; Blood Gas Sample Type Arterial; HCO3 ABG 25.7 mmol/L (22-26); Oxygen Device ROOM AIR
[2023-01-15 17:00] VITALS: BP 130/68; PULSE 72; RESP 16; TEMP 37.1; O2SAT 97
[2023-01-15 17:01] LABS: Troponin(5th) Baseline 25 ng/L (0-10)
[2023-01-15 17:14] LABS: Vitamin B12 419 pg/mL (232-1245)
--- NOTE | 2023-01-15 17:15 | ECG_ITS ---
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 Measurements Intervals [place] Rate: 72 P: 64 [place]: 193 QRS: -28 QRSD: 165 T: 118 QT: 423 QTc: 464 Interpretive Statements SINUS RHYTHM LEFT BUNDLE BRANCH BLOCK [120+ ms QRS DURATION, 80+ ms Q/S IN V1/V2, 85+ ms R IN I/aVL/V5/V6] Compared to ECG 01/15/2023 16:20:20 No significant changes Electronically Signed On 01-16-2023 18:48:39 CDT by Denys Gomez M.D. [id number]
--- NOTE | 2023-01-15 17:19 | PC.NURSE ---
This nurse crushed medication, put in applesauce and tried to give to patient. Patient spit our, said no. Patient will drink water but absolutely will not take the medications.
--- NOTE | 2023-01-15 17:22 | PC.NURSE ---
Patient fails to leave armband on. Armband is taped on the end of the bed of patient.
[2023-01-15 17:32] LABS: Alanine Aminotransferase 10 U/L (0-33); Albumin Level 3.5 g/dL (3.5-5.2); Alkaline Phosphatase 86 U/L (35-105); Anion Gap 16.1 (5-19); Aspartate Amino Transferase 23 U/L (0-32); Blood Urea Nitrogen 19 mg/dL (8-23); C Reactive Protein 68.6 mg/L (0.0-4.9); Calcium 9.9 mg/dL (8.5-10.5); Carbon Dioxide 25 mmol/L (22-29); Chloride 103 mmol/L (98-107); Creatinine Clr Calc Pharmacy 62.5973; Globulin 3.1 g/dL (1.3-4.6); Glucose 82 mg/dL (65-115); Magnesium 1.8 mg/dL (1.7-2.3); Osmolality Calculated 291 mOsm/kg (285-295); Potassium 4.1 mmol/L (3.5-5.1); Sodium 140 mmol/L (136-145); Total Bilirubin 0.5 mg/dL (0.15-1.2); Total Protein 6.6 g/dL (6.6-8.7)
[2023-01-15 17:46] LABS: Adenovirus Not Detected (NOT DETECT); Chlamydia Pneumoniae Not Detected (NOT DETECT); Coronavirus 229E,HKU1,NL63,OC4 Not Detected (NOT DETECT); Human Metapneumovirus Not Detected (NOT DETECT); Human Rhinovirus/Enterovirus Not Detected (NOT DETECT); Influenza A Not Detected (NOT DETECT); Influenza A H1 Not Detected (NOT DETECT); Influenza A H1-2009 Not Detected (NOT DETECT); Influenza A H3 Not Detected (NOT DETECT); Influenza B Not Detected (NOT DETECT); Mycoplasma Pneumoniae Not Detected (NOT DETECT); Parainfluenza Virus Type 1 Not Detected (NOT DETECT); Parainfluenza Virus Type 2 Not Detected (NOT DETECT); Parainfluenza Virus Type 3 Not Detected (NOT DETECT); Parainfluenza Virus Type 4 Not Detected (NOT DETECT); Respiratory Syncytial Virus A Not Detected (NOT DETECT); Respiratory Syncytial Virus B Not Detected (NOT DETECT); SARS-COV-2 Not Detected (NOT DETECT)
[2023-01-15 18:44] LABS: Troponin 5 2HR 24.04 ng/L (0-10)
[2023-01-15 18:45] LABS: Troponin 5 2HR Delta -0.96 ABS# (0-10)
[2023-01-15 20:05] VITALS: BP 129/74; PULSE 65; RESP 16; TEMP 36.7; O2SAT 95
--- NOTE | 2023-01-15 21:26 | ECG_ITS ---
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 Measurements Intervals [place] Rate: 71 P: 56 [place]: 196 QRS: -29 QRSD: 162 T: 115 QT: 432 QTc: 472 Interpretive Statements SINUS RHYTHM LEFT BUNDLE BRANCH BLOCK [120+ ms QRS DURATION, 80+ ms Q/S IN V1/V2, 85+ ms R IN I/aVL/V5/V6] Compared to ECG 01/15/2023 17:15:20 No significant changes Electronically Signed On 01-16-2023 18:47:33 CDT by Denys Gomez M.D. [id number]
[2023-01-15 21:52] LABS: Rapid Plasma Reagin Syphilis Nonreactive (Nonreactive)
[2023-01-15 22:43] LABS: Troponin 5 6HR 21.26 ng/L (0-10); Troponin 5 6HR Delta -3.74 ng/L (0-12)
[2023-01-16] VITALS (15 sets, daily range): BP systolic 95–151; BP diastolic 47–75; PULSE 69–90; RESP 15–25; TEMP 36.1–37.2; O2SAT 89–100
[2023-01-16] MEDS: sodium chloride 0.9% 1,000 ML 100 ML IV ×3 (00:40→17:03)
[2023-01-16 09:53] LABS: Folate Level 5.2 ng/mL (4.8-37.3)
--- NOTE | 2023-01-16 11:27 | PC.OT ---
OT TREATMENT HELD TODAY THE PATIENT IS SCHEDULED FOR SURGERY TODAY. WILL ATTEMPT RE-EVALUATION TOMORROW.
--- NOTE | 2023-01-16 12:42 | P.ANESASSM_ITS ---
Pre-Anesthetic Assessment Height/Weight: Height 1.68 m Weight 79.379 kg Temp Pulse Resp BP Pulse Ox O2 Del Method O2 Flow Rate 97.8 F 72 18 145/62 95 3 01/16/23 11:36 01/16/23 11:36 01/16/23 11:36 01/16/23 11:36 01/16/23 11:36 01/16/23 11:36 01/14/23 20:00 Preop Diagnosis: Dislocated left total knee Operation Date: 01/13/23 13:30 Proposed Procedures p closed reduction vs open reduction with poly exchange left knee/ 65836,Z96.659, S83.106A(Left) - Dougie Mccallum MD s Polyethelene Exchange Knee(Left) - Dougie Mccallum MD Operation Date: 01/16/23 12:00 Proposed Procedures p Total Knee Arthroplasty Revision(Left) - Dougie Mccallum MD Familial anesthetic complications: None Was Beta Jorge taken within 24 hours: N/A Was Clonidine taken within 24 hours: N/A Last intake: Intake Last Liquid Date 01/15/23 Last Liquid Time 20:00 Last Solid Date 01/15/23 Last Solid Time 20:00 Social No alcohol and No tobacco Exam alert and clear to auscultation bilaterally Airway Submandibular: within normal limits Cervical ROM: within normal limits Mallampati: Class II Dentition: chipped History/ROS No significant history except as noted Pulmonary None reported CV/HEM Coronary Artery Disease None reported Hepatic None reported GI None reported Metabolic Morbid Obesity [facility] [place] Osteoarthritis/DJD parkinsons Neuropsych None reported Anesthetic Plan ASA status: 3 Anesthesia: Anesthesia Evaluation, MAC and Regional (specify below) (SAB) Risk of > 500 ml blood loss (7ml/kg in children): Yes, adequate IV access and fluids planned Medications/Allergies Home Medications Medication Instructions Recorded Confirmed Last Taken Type Knee immobilizer #1 ea 04/03/21 01/14/23 Unknown Rx aspirin 325 mg tablet 650 mg PO QID 08/27/22 01/14/23 12/06/22 History carbidopa 25 mg-levodopa 100 mg 1 tab PO QID 08/27/22 01/14/23 12/06/22 History tablet midodrine 5 mg tablet 5 mg PO QID 08/27/22 01/14/23 12/06/22 History quetiapine 25 mg tablet (Seroquel) 25 mg PO DAILY 30 days #30 tabs 01/14/23 01/14/23 Unknown Rx Allergies Allergy/AdvReac Type Severity Reaction Status Date / Time acetaminophen AdvReac Unknown ALTERED Verified 01/10/23 14:05 PERSONALITY Current Medications Generic Name Dose Route Start Last Admin Trade Name Ronyq PRN Reason Stop Dose Admin Carbidopa/Levodopa 1 each 01/13/23 18:00 01/16/23 10:54 Carbidopa-Levodopa 25-100mg Tablet PO Not Given BID RAY Sodium Chloride 1,000 mls @ 100 mls/hr 01/13/23 15:25 01/16/23 10:56 Sodium Chloride 0.9% IV 100 mls/hr .Q10H RAY Administration Midodrine 5 mg 01/13/23 18:00 01/16/23 10:54 Midodrine 5 Mg Tablet PO Not Given BID RAY Senna/Docusate Sodium 2 tab 01/13/23 18:00 01/16/23 10:55 Sennosides-Docusate Tablet PO Not Given BID RAY PFSH Anesthesia Medical History Parkinson disease Surgical History History of arthroplasty of both knees Status post deep brain stimulator placement Family History Other CAD (coronary artery disease) Cancer Diabetes Stroke Denies family history of Hypertension Social History Smoking and tobacco status: never smoked Alcohol intake: never Data Anesthesia 01/15/23 15:53 01/15/23 15:53 Short CBC 01/15/23 Range/Units 15:53 WBC 6.0 (4.0-10.0) 10^3/uL Hgb 11.1 L (11.5-15.3) g/dL Hct 35.1 L (37.0-47.0) % MCV 93.6 (81-99) fl Plt Count 188 (130-400) 10^3/cmm Neut % (Auto) 62.0 % Neut # (Auto) 3.70 (1.8-7.7) 10^3/uL BMP 01/15/23 15:53 Sodium 140 Potassium 4.1 Chloride 103 Carbon Dioxide 25 BUN 19 Creatinine 0.7 Glucose 82 Calcium 9.9 Cardiac Enzymes 01/15/23 01/15/23 01/15/23 Range/Units 15:53 18:14 22:12 Troponin T Baseline 25 H (0-10) ng/L Troponin T 120 Minute 24.04 H (0-10) ng/L Delta Troponin T -0.96 L (0-10) ABS# Troponin T Hi Sens 6Hr 21.26 H (0-10) ng/L Troponin T Hi Sens 6Hr Delta -3.74 L (0-12) ng/L Liver Function 01/15/23 Range/Units 15:53 Total Bilirubin 0.5 (0.15-1.2) mg/dL AST 23 (0-32) U/L ALT 10 (0-33) U/L Alkaline Phosphatase 86 (35-105) U/L Albumin 3.5 (3.5-5.2) g/dL COVID Results 01/15/23 15:50 Coronavirus 229E (PCR) Not detected SARS-CoV-2 (PCR) Not detected Coags 01/15/23 15:53 C-Reactive Protein 68.6 H ABG 01/15/23 16:31 Specimen Type Arterial Sample Site Radial, right ABG pH 7.45 ABG pCO2 37.2 ABG pO2 72.0 L ABG HCO3 25.7 ABG Base Excess 1.6 O2 Delivery Device Room air FiO2 21.0 Microbiology 01/15/23 15:54 Blood Culture - Preliminary Blood SPECIMEN COLLECTED 01/15/23 15:53 Blood Culture - Preliminary Blood SPECIMEN COLLECTED Cardiac Studies: Echocardiogram 07/29/22
[2023-01-16] MEDS: ceFAZolin 2,000 MG in sodium chloride 0.9% (plus) 50 ML 100 MG IV ×2 (12:52→20:26)
--- NOTE | 2023-01-16 13:27 | PC.SOCIAL ---
IMM Update pg 2 of IMM updated and reviewed w/ patient and called and reviewed w/ patients . Copy left @ bedside and copy dated, initialed and placed in chart.
[2023-01-16] MEDS: EPINEPHrine 1 mg/mL INJ XX (15:02)
[2023-01-16] MEDS: tranexamic acid 1,000 mg/10mL SDV 1000 MG XX (15:02)
[2023-01-16] MEDS: ketorolac 30 mg/mL INJ XX (15:02)
[2023-01-16] MEDS: sodium chloride 0.9% 100 mL Bag XX (15:02)
--- NOTE | 2023-01-16 15:32 | PM.PN ---
Subjective Subjective: Patient was seen this morning she is much more alert awake, sitting up in bed, she is alert to person, to place, to time, she follows commands, denies any focal weakness, no nausea, no vomiting, she is knows that she is here in the hospital for her left knee surgery, she denies any pain, denies any headache, no blurry vision, no nausea, vomiting, no abdominal pain, Vitals/I&O/Wt Last Vital Signs Temp 97.8 F 01/16/23 11:36 Pulse 72 01/16/23 11:36 Resp 18 01/16/23 11:36 BP 145/62 01/16/23 11:36 Pulse Ox 95 01/16/23 11:36 O2 Del Method 01/16/23 11:36 O2 Flow Rate 3 01/14/23 20:00 01/16/23 01/16/23 01/16/23 06:59 14:59 22:59 Intake Total 1160 / 1160 Balance 1160 / 1160 Physical Exam Const: COMMON NORMALS: no acute distress and patient oriented x3 Resp: COMMON NORMALS: normal respiratory effort, No retractions, No use of accessory muscles and clear to auscultation bilaterally AUSCULTATION: clear to auscultation bilaterally Cardio: COMMON NORMALS: regular rate, regular rhythm, S1 normal heart sound present and S2 normal heart sound present RATE: regular rate RHYTHM: regular rhythm HEART SOUNDS: S1 normal heart sound present and S2 normal heart sound present GI: COMMON NORMALS: Normal to inspection, nondistended, normoactive bowel sounds present and non-tender Extremity: COMMON NORMALS: no pedal edema NARRATIVE EXTREMITY EXAM: Left knee in a binder Neuro: COMMON NORMALS: patient oriented x3 Psych: COMMON NORMALS: mental status grossly normal Urinary Catheter Management: Gaytan: Cath Placed During This Visit: yes Urinary Catheter Date of Insertion: 01/16/23 Urinary Catheter Time of Insertion: 13:30 Data 01/15/23 15:53 01/15/23 15:53 Micro: Microbiology 01/15/23 15:54 Blood Culture - Preliminary Blood SPECIMEN COLLECTED 01/15/23 15:53 Blood Culture - Preliminary Blood SPECIMEN COLLECTED A&P Assessment and plan (1) Altered mental status: Plan Altered mental status -Currently resolved -During her prior hospitalization she also had issues with confusion -Has Parkinson's disease -Has underlying dementia -Likely secondary to underlying dementia, Parkinson's disease, hospitalization Plan -Will neurochecks, aspiration precautions -Afebrile overnight, normotensive -CT head no acute findings -Chest x-ray no focal pneumonia -Blood work no acute findings -Blood cultures pending -Urinalysis urinalysis -Monitor mentation closely -Is on Sinemet continue, continue Seroquel -Full code -DVT prophylaxis, and pain control as per orthopedic team Attestations Medical Necessity Statement*: Patient requires hospitalization for left knee surgery, currently with altered mental status, back to baseline Diagnoses Altered mental status R41.82
--- NOTE | 2023-01-16 15:36 | XRR_ITS ---
PROCEDURE INFORMATION: Exam: XR Left Knee Exam date and time: 01/16/2023 2:55 PM Age: 77 years old Clinical indication: Device placement; Joint replacement hardware; Prior surgery; Surgery date: Post-operative (0-2 days); Surgery type: Left total knee arthroplasty TECHNIQUE: Imaging protocol: Radiologic exam of the left knee. Views: 1 or 2 views. COMPARISON: CR XR knee LT 1-2V [id number] 01/15/2023 10:17 AM FINDINGS: Bones/joints: Metallic knee replacement is present appearing well positioned. Prior examination showed dislocation of the metallic knee replacement components. No acute bony abnormalities seen. Current of finding show the components to be well aligned. Soft tissues: Post surgical soft tissue changes seen in the anterior aspect of the knee. Metallic kartik which were in place in the anterior knee on prior exam have now been removed. There is subcutaneous emphysema and soft tissue edema seen XR/XR knee LT 1-2V [id number] IMPRESSION: 1. Metallic knee replacement in good position. 2. Postoperative soft tissue findings are seen anterior knee 3. Otherwise No acute findings.
--- NOTE | 2023-01-16 15:38 | PM.OP ---
Operative Report Date of procedure: January 16, 2023 Pre-op diagnosis: Preop Diagnosis Dislocated left total knee Preop Diagnosis Dislocated left total knee Post-op diagnosis: same Procedure done: Revision left total knee Implants: Depuy SROM x-xmall femur, 20mm cemented sleeve 15x60 stme Size 4 RP tray, 37 partial coated sleeve, 14x80 cemented stem Pathology: none sent Surgeon: Xena Anesthesia: Nerve Block (Spinal) Estimated blood loss (mL): 50 Tourniquet time (min): 80 Findings: The patient had the previously noted dislocated left total knee arthroplasty. There is no evidence of necrotic or purulent tissue to suggest infection Condition: stable Disposition: PACU Brief History: The patient is a 77-year-old female with recurrent dislocations of the left knee. She underwent revision left knee to a constrained component on 08/26/2022. She sustained a dislocation between late November and early December of uncertain mechanism. She presents to my clinic with her revision constrained knee dislocated. She was taken back to the operating room this Friday for open reduction of the knee. She sustained a second dislocation the revised knee on 12/17/2022. Options were discussed with the family who wished her to have a knee replacement for weightbearing and shows a hinged total knee. Procedure: The patient was taken to the operating room given 2 g of Ancef. She was given a spinal anesthesia. She is positioned supine on the OR table with her left lower extremity exposed. A timeout was performed. Knee was entered through the previous anterior scar and subcutaneous stitches were divided with a scalpel blade. This brought her back to the medial retinacular repair and sutures that were divided allowing the need to be flexed and the patella displaced laterally. Screwdriver was used to remove the fixation screw in the tibial insert was removed. A's micro oscillating saw was used to separate the distal femoral components from the cement mantle. With a The components and stem were removed with minimal bone loss. In a similar fashion the saw was passed underneath the tibial component. The component was rocked back and forth with a mallet and a tamp. The tamp could then be placed underneath the tibia and it malleted free as well with minimal bone loss. Attention was initially focused on the tibia. The distal canal was reamed to 16 mm. The proximal femur was broached to a 37 mm sleeve. Bone quality made stable press-fit fixation seems unlikely and decision was made to cement the ultimate stem. On the back table 2 g of Simplex tobramycin cement were mixed and a size 4 RP tray with the 37 mm partially coated sleeve and 14 x 80 stem were cemented into place. The cement of the tibia set attention was focused on the femur. Sequential reaming of the femur was accomplished up to 18 mm. The proximal femur was hand broached to accommodate the 20 mm sleeve. The femoral cutting guide was placed and the femur prepared for the extra small femoral component. The extra small femur, 20 mm cemented sleeve, and 10 x 60 stem were assembled and cemented in the place. A trial reduction was performed with a 16 mm bearing insert. Patellar height seem to be reasonable. The posterior capsule medial and lateral capsule medial and lateral tibial periosteum and the condyles were infiltrated with a solution of 100 mL of 0.2% ropivacaine, 1 mL of a 1:1000 epinephrine solution, and 30 mg of Toradol. Final polyethylene component was then snapped into place into the tibia. 2 grams of tranexamic acid were applied to the wound. The tourniquet was deflated. The tranxanemic acid was left contact with the knee for 5 minutes before the knee was irrigated with saline. the final 16mm bearing insert was placed and the locking pin snapped into place. The extensor retinaculum was closed with a running 1 Stratafix.. The subcutaneous tissues were closed with 2-0 Vicryl and the skin was closed with a running 3-0 Stratafix. The wound was covered with a Dermabond Prinio dressing. It was covered with 4xrs and a compressive Tubigauae was applied. The patient was taken to recovery room in stable condition.
--- NOTE | 2023-01-16 16:05 | ANE.PACU2 ---
Inpatient post-anesthesia follow up: Airway intact: Yes Vital signs: Temperature 97.0 F Pulse Rate 83 Respiratory Rate 20 Blood Pressure 134/48 Pulse Oximetry 100 Oxygen Delivery Me thod [Rate & Room Air Delivery Changed T o] Oxygen Delivery Me thod Simple Mask Oxygen Flow Rate 6 Fraction of Inspir ed Oxygen Hydration adequate: Yes Nausea and vomiting: No Pain level: 1 Mental status: Baseline
[2023-01-16] MEDS: sennosides-docusate Tablet 2 TAB PO (20:25)
[2023-01-16] MEDS: CELEcoxib 200 mg Capsule PO (20:25)
[2023-01-16] MEDS: aspirin 325 mg EC Tablet 650 MG PO (20:26)
[2023-01-17 03:22] VITALS: BP 122/49; PULSE 70; RESP 23; TEMP 37.1; O2SAT 94
[2023-01-17 03:23] LABS: Bilirubin Urine Neg (Negative); Blood Urine 3+ (Negative); Glucose Urine UA Norm (Normal); Ketones Urine 2+ (Negative); Nitrate Urine Negative (Negative); Protein Urine 1+ (Negative); Specific Gravity, Urine 1.025 (1.005-1.030); Urine Appearance Cloudy (CLEAR); Urine Color Yellow (Yellow); Urobilinogen Urine 1 mg/dL (Negative); pH Urine 5 (5-7)
[2023-01-17 03:24] LABS: Add Urine Microscopic? YES; Leukocyte Esterase Urine 2+ (Negative)
[2023-01-17 03:25] LABS: RBC Urine >100 /hpf (0-2); WBC Urine >100 /hpf (0-5)
[2023-01-17 03:27] LABS: Add Urine Culture? Yes; Bacteria Urine 3+ /hpf; Squamous Epithelial Cell Urine 0-4 /hpf (0-5)
[2023-01-17] MEDS: sodium chloride 0.9% 1,000 ML 100 ML IV (03:35)
[2023-01-17] MEDS: ceFAZolin 2,000 MG in sodium chloride 0.9% (plus) 50 ML 100 MG IV (04:39)
[2023-01-17 05:07] LABS: Basophils # 0.1 10^3/uL (0.0-0.1); Eosinophils # 0.2 10^3/uL (0.0-0.8); Eosinophils % 2.6 %; Hemoglobin 9.7 g/dL (11.5-15.3); Lymphocytes # 0.8 10^3/uL (0.8-4.8); Lymphocytes % 11.4 %; Mean Corpuscular HGB Conc 30.3 g/dL (30.0-36.0); Mean Corpuscular Hemoglobin 29.3 pg (28.0-34.0); Mean Corpuscular Volume 96.7 fl (81-99); Mean Platelet Volume 11.6 fL (7.4-10.4); Monocytes # 0.5 10^3/uL (0.2-0.9); Monocytes % 6.6 %; Neutrophils # 5.43 10^3/uL (1.8-7.7); Neutrophils % 78.1 %; Nucleated Red Blood Cells % 0 %; Platelet Count 184 10^3/cmm (130-400); Red Blood Count 3.31 10^6/uL (4.1-5.3); Red Cell Distribution Width 15.9 % (12.1-15.1)
[2023-01-17 05:31] LABS: Anion Gap 15.9 (5-19); Blood Urea Nitrogen 20 mg/dL (8-23); Calcium 9.5 mg/dL (8.5-10.5); Carbon Dioxide 20 mmol/L (22-29); Chloride 112 mmol/L (98-107); Creatinine Clr Calc Pharmacy 55.6421; Glucose 163 mg/dL (65-115); Osmolality Calculated 304 mOsm/kg (285-295); Potassium 3.9 mmol/L (3.5-5.1); Sodium 144 mmol/L (136-145)
[2023-01-17 06:00] VITALS: PULSE 76
[2023-01-17 08:00] VITALS: BP 132/68; PULSE 77; RESP 18; TEMP 36.8; O2SAT 93
[2023-01-17] MEDS: sennosides-docusate Tablet 2 TAB PO ×2 (08:16→17:29)
[2023-01-17] MEDS: CELEcoxib 200 mg Capsule PO (08:16)
--- NOTE | 2023-01-17 08:57 | US_ITS ---
WS: [id number] ULTRASOUND RENAL TECHNIQUE: Ultrasound examination of both kidneys. CLINICAL INFORMATION: chavo COMPARISON: None. FINDINGS: RIGHT: Right kidney is somewhat atrophic Echogenicity: Increased Hydronephrosis: None. Perinephric fluid: None. Right kidney measures: 9.0 cm x 3.8 cm x 3.2 cm. LEFT: Left kidney is somewhat atrophic. Echogenicity: Increased Hydronephrosis: None. Perinephric fluid: None. Left kidney measures: 10.0 cm x 4.0 cm x 4.3 cm. Normal visualized aorta. US/US renal BI* [id number] IMPRESSION: 1. Mild bilateral renal atrophy. 2. No hydronephrosis in either kidney. 3. Increased renal echogenicity compatible with medical renal disease. 4. Gaytan catheter
[2023-01-17] MEDS: cefTRIAXone 1,000 MG, lidocaine 1% 2.1 ML in SYRINGE 1 EACH 1000 MG IM (11:13)
[2023-01-17] MEDS: fluconazole 100 mg Tablet 200 MG PO (12:12)
--- NOTE | 2023-01-17 12:47 | PM.PN ---
Subjective Subjective: Patient was seen this morning, she is alert to person, not to place, not to time, she is currently thinking that she is at home, she does not recognize me as her physician, she is knows that she is here for her left knee no facial droop no slurring of her words, alert to person, does not follow commands, over night she had episodes of agitation, she removed 3 IVs Vitals/I&O/Wt Last Vital Signs Temp 98.2 F 01/17/23 08:00 Pulse 77 01/17/23 08:00 Resp 18 01/17/23 08:00 BP 132/68 01/17/23 08:00 Pulse Ox 93 01/17/23 08:00 O2 Del Method 01/17/23 08:00 O2 Flow Rate 6 01/16/23 16:00 01/16/23 01/17/23 01/17/23 22:59 06:59 14:59 Intake Total 2260 / 3420 1050 / 4470 0 / 0 Output Total 250 / 250 200 / 450 Balance 20090 850 / 4020 0 / 0 Physical Exam Const: COMMON NORMALS: no acute distress Resp: COMMON NORMALS: normal respiratory effort, No retractions, No use of accessory muscles and clear to auscultation bilaterally AUSCULTATION: clear to auscultation bilaterally Cardio: COMMON NORMALS: regular rate, regular rhythm, S1 normal heart sound present and S2 normal heart sound present RATE: regular rate RHYTHM: regular rhythm HEART SOUNDS: S1 normal heart sound present and S2 normal heart sound present GI: COMMON NORMALS: Normal to inspection, nondistended, normoactive bowel sounds present and non-tender Extremity: COMMON NORMALS: no pedal edema Urinary Catheter Management: Gaytan: Cath Placed During This Visit: yes Urinary Catheter Date of Insertion: 01/16/23 Urinary Catheter Time of Insertion: 13:30 Data 01/17/23 04:34 01/17/23 04:34 Micro: Microbiology 01/15/23 15:54 Blood Culture - Preliminary Blood NEGATIVE TO DATE 01/15/23 15:53 Blood Culture - Preliminary Blood NEGATIVE TO DATE A&P Assessment and plan (1) Altered mental status: Plan Altered mental status -Currently having delirium likely secondary UTI -During her prior hospitalization she also had issues with confusion -Has Parkinson's disease -Has underlying dementia -Likely secondary to underlying dementia, Parkinson's disease, hospitalization Plan -Will neurochecks, aspiration precautions -Afebrile overnight, normotensive -CT head no acute findings -Chest x-ray no focal pneumonia -Blood work no acute findings -Blood cultures pending -Urinalysis indicated for UTI, she ripped out 3 of her IVs, will give her IM Rocephin, start cefdinir tomorrow renal ultrasound -Monitor mentation closely -Is on Sinemet continue, continue Seroquel -Full code -DVT prophylaxis, and pain control as per orthopedic team Status post left knee total revision by Dr. Mccallum Attestations Medical Necessity Statement*: Patient requires hospitalization for altered mental status, UTI Coding Level of Care Code Acute Code for g Fwd Diagnoses Altered mental status R41.82
[2023-01-17 16:00] VITALS: BP 143/72; PULSE 85; RESP 18; TEMP 36.4; O2SAT 96
[2023-01-17] MEDS: OLANZapine 10 mg VIAL 2.5 MG IM (19:30)
[2023-01-18] VITALS (7 sets, daily range): BP systolic 133–153; BP diastolic 72–84; PULSE 61–82; RESP 16–19; TEMP 36.8–36.9; O2SAT 93–99
[2023-01-18 10:53] LABS: Basophils # 0.1 10^3/uL (0.0-0.1); Basophils % 1.3 %; Eosinophils # 0.5 10^3/uL (0.0-0.8); Eosinophils % 7.8 %; Hematocrit 29.5 % (37.0-47.0); Hemoglobin 9.4 g/dL (11.5-15.3); Lymphocytes % 16.8 %; Mean Corpuscular HGB Conc 31.9 g/dL (30.0-36.0); Mean Corpuscular Hemoglobin 29.8 pg (28.0-34.0); Mean Corpuscular Volume 93.7 fl (81-99); Mean Platelet Volume 11.1 fL (7.4-10.4); Monocytes # 0.5 10^3/uL (0.2-0.9); Monocytes % 7.3 %; Neutrophils # 4.11 10^3/uL (1.8-7.7); Neutrophils % 66.5 %; Nucleated Red Blood Cells % 0 %; Platelet Count 171 10^3/cmm (130-400); Red Blood Count 3.15 10^6/uL (4.1-5.3); Red Cell Distribution Width 15.8 % (12.1-15.1); White Blood Count 6.2 10^3/uL (4.0-10.0)
[2023-01-18 11:05] LABS: Glucose Point of Care 118 mg/dL (70-110)
--- NOTE | 2023-01-18 11:15 | PC.NURSE ---
Dr. Jimenez notified that patients LOC has changed and appears to be more lethargic. Blood glucose 95 and IM glucagon given d/t difficulties obtaining IV access. Ultrasound IV being placed at this time. Blood glucose recheck is 118. Pt will now open eyes and respond to her name. Dr. Jimenez aware that patient is unable to swallow her PO medications and plans to switch to IV antibiotics.
[2023-01-18 11:20] LABS: Alanine Aminotransferase 6 U/L (0-33); Alkaline Phosphatase 84 U/L (35-105); Anion Gap 12.7 (5-19); Aspartate Amino Transferase 24 U/L (0-32); Blood Urea Nitrogen 16 mg/dL (8-23); C Reactive Protein 89.7 mg/L (0.0-4.9); Calcium 9.8 mg/dL (8.5-10.5); Carbon Dioxide 23 mmol/L (22-29); Chloride 111 mmol/L (98-107); Creatinine Clr Calc Pharmacy 62.5973; Globulin 2.9 g/dL (1.3-4.6); Glucose 115 mg/dL (65-115); Osmolality Calculated 298 mOsm/kg (285-295); Potassium 3.7 mmol/L (3.5-5.1); Sodium 143 mmol/L (136-145); Total Bilirubin 0.5 mg/dL (0.15-1.2); Total Protein 5.9 g/dL (6.6-8.7)
[2023-01-18 11:27] LABS: Glucose Point of Care 95 mg/dL (70-110)
--- NOTE | 2023-01-18 11:41 | PC.OT ---
OT chart reviewed. OT spoke with PT who attempted to see patient though patient was unable to participate therapy due to decreased cognitive awareness and gross overall weakness with inability to follow commands. Will attempt tx when patient is more alert and rested. Mustapha Lauren OTR/L
--- NOTE | 2023-01-18 11:51 | CTR_ITS ---
PROCEDURE INFORMATION: Exam: CT Head Without Contrast Exam date and time: 01/18/2023 12:20 PM Age: 77 years old Clinical indication: Altered mental status/memory loss; TECHNIQUE: Imaging protocol: Computed tomography of the head without contrast. Radiation optimization: All CT scans at this facility use at least one of these dose optimization techniques: automated exposure control; mA and/or kV adjustment per patient size (includes targeted exams where dose is matched to clinical indication); or iterative reconstruction. REPORTING DATA: Count of CT and Cardiac NM exams in prior 12 months: This patient has received [address] and 0 known cardiac nuclear medicine studies in the 12 months prior to the current study. COMPARISON: CT head wo con* [id number] 01/15/2023 4:05 PM RADIATION DOSE METRICS: Total DLP (mGy-cm): 1070.98 FINDINGS: Tubes, catheters and devices: Deep brain stimulator wires are unchanged from the prior exam. Brain: Periventricular and subcortical white matter low densities are present which at this age likely represent microvascular ischemic change. Mild generalized cerebral atrophy.No evidence for large acute ischemic infarction. Please note acute ischemia can be occult by head CT. No evidence for acute intracranial hemorrhage. Cerebral ventricles: No ventriculomegaly. Paranasal sinuses: Visualized sinuses are unremarkable. No fluid levels. Mastoid air cells: Visualized mastoid air cells are well aerated. Bones/joints: Unremarkable. No acute fracture. Soft tissues: Unremarkable. Vasculature: Calcified plaque is present within the carotid siphons. CT/CT head wo con* [id number] IMPRESSION: There are senescent changes of the brain as described above. No evidence for large acute ischemic infarction or acute intracranial injury.
[2023-01-18] MEDS: dextrose 5%-sod chloride 0.9% 1,000 ML 100 ML IV (12:37)
[2023-01-18] MEDS: meropenem 1,000 MG in sodium chloride 0.9% (plus) 50 ML 100 MG IV ×2 (12:48→19:59)
[2023-01-18] MEDS: fluconazole premix 200 MG/100 ML PREMIX 100 MG IV (13:54)
--- NOTE | 2023-01-18 14:16 | PC.SOCIAL ---
Imm update Imm updated with son Jack. Copy of page 2 explained, Jack verbalized understanding. Copy in chart initialed, dated and timed.
--- NOTE | 2023-01-18 15:05 | PM.PN ---
Subjective Subjective: - This morning, patient is quite drowsy, she awakens to sternal rubbing, overnight, she did get Zyprexa, nurses tell me that this morning she did awake answer a few questions, -This morning she does awaken to sternal rubbing, but falls back asleep, no facial droop, no slurring of her words Vitals/I&O/Wt Last Vital Signs Temp 98.3 F 01/18/23 08:00 Pulse 69 01/18/23 08:00 Resp 16 01/18/23 08:00 BP 153/83 01/18/23 08:00 Pulse Ox 98 01/18/23 08:00 O2 Del Method 01/18/23 08:00 O2 Flow Rate 6 01/18/23 08:00 01/18/23 01/18/23 01/18/23 06:59 14:59 22:59 Intake Total 0 / 0 Output Total 450 / 450 Balance -450 / 751.183 0 / 0 Physical Exam Const: COMMON NORMALS: no acute distress Neck/C-Spine: COMMON NORMALS: no JVD Resp: COMMON NORMALS: normal respiratory effort, No retractions, No use of accessory muscles and clear to auscultation bilaterally AUSCULTATION: clear to auscultation bilaterally Cardio: COMMON NORMALS: no JVD, regular rate, regular rhythm, S1 normal heart sound present and S2 normal heart sound present RATE: regular rate RHYTHM: regular rhythm HEART SOUNDS: S1 normal heart sound present and S2 normal heart sound present GI: COMMON NORMALS: Normal to inspection, nondistended, normoactive bowel sounds present and non-tender Extremity: COMMON NORMALS: no pedal edema Urinary Catheter Management: Gaytan: Cath Placed During This Visit: yes Urinary Catheter Date of Insertion: 01/16/23 Urinary Catheter Time of Insertion: 13:30 Data 01/18/23 10:40 01/18/23 10:40 A&P Assessment and plan (1) Altered mental status: Plan Altered mental status -Currently having delirium likely secondary UTI -During her prior hospitalization she also had issues with confusion -Has Parkinson's disease -Has underlying dementia -Likely secondary to underlying dementia, Parkinson's disease, hospitalization Plan -Will neurochecks, aspiration precautions -Afebrile overnight, normotensive -Given confusion today we will repeat CT head, repeat blood work -Chest x-ray no focal pneumonia -Blood work no acute findings -Blood cultures pending -Urinalysis indicated for UTI, she ripped out 3 of her IVs, given her persistent confusion, will place an IV and start her on meropenem and Diflucan for fungal infections -Monitor mentation closely -Is on Sinemet continue, continue Seroquel -Full code -DVT prophylaxis, and pain control as per orthopedic team Status post left knee total revision by Dr. Mccallum Attestations Medical Necessity Statement*: Patient requires hospitalization for persistent altered mental status Diagnoses Altered mental status R41.82
[2023-01-18 17:04] LABS: Glucose Point of Care 100 mg/dL (70-110)
[2023-01-19] VITALS (11 sets, daily range): BP systolic 90–149; BP diastolic 53–75; PULSE 57–104; RESP 12–18; TEMP 36.4–36.9; O2SAT 90–97
[2023-01-19] MEDS: dextrose 5%-sod chloride 0.9% 1,000 ML 100 ML IV (00:10)
[2023-01-19] MEDS: meropenem 1,000 MG in sodium chloride 0.9% (plus) 50 ML 100 MG IV ×2 (04:11→13:19)
[2023-01-19 05:37] LABS: Basophils # 0.1 10^3/uL (0.0-0.1); Basophils % 1.5 %; Eosinophils # 0.7 10^3/uL (0.0-0.8); Eosinophils % 9.6 %; Hematocrit 32.3 % (37.0-47.0); Hemoglobin 9.6 g/dL (11.5-15.3); Lymphocytes # 1.7 10^3/uL (0.8-4.8); Lymphocytes % 24.3 %; Mean Corpuscular HGB Conc 29.7 g/dL (30.0-36.0); Mean Corpuscular Hemoglobin 29.7 pg (28.0-34.0); Mean Platelet Volume 12.7 fL (7.4-10.4); Monocytes # 0.4 10^3/uL (0.2-0.9); Monocytes % 6.4 %; Neutrophils # 3.97 10^3/uL (1.8-7.7); Neutrophils % 57.9 %; Nucleated Red Blood Cells % 0 %; Platelet Count 80 10^3/cmm (130-400); Red Blood Count 3.23 10^6/uL (4.1-5.3); Red Cell Distribution Width 15.9 % (12.1-15.1); White Blood Count 6.9 10^3/uL (4.0-10.0)
[2023-01-19 06:17] LABS: Albumin Level 2.6 g/dL (3.5-5.2); Alkaline Phosphatase 66 U/L (35-105); Blood Urea Nitrogen 13 mg/dL (8-23); Calcium 9.3 mg/dL (8.5-10.5); Carbon Dioxide 19 mmol/L (22-29); Chloride 107 mmol/L (98-107); Creatinine Clr Calc Pharmacy 62.5973; Globulin 2.9 g/dL (1.3-4.6); Glucose 98 mg/dL (65-115); Magnesium 1.6 mg/dL (1.7-2.3); Osmolality Calculated 276 mOsm/kg (285-295); Phosphorus 2.2 mg/dL (2.5-4.5); Sodium 133 mmol/L (136-145); Total Bilirubin 0.4 mg/dL (0.15-1.2); Total Protein 5.5 g/dL (6.6-8.7)
[2023-01-19 06:20] LABS: Alanine Aminotransferase 22 U/L (0-33); Anion Gap 10.6 (5-19); Aspartate Amino Transferase 6 U/L (0-32); Potassium 3.6 mmol/L (3.5-5.1)
[2023-01-19] MEDS: CELEcoxib 200 mg Capsule PO (10:28)
[2023-01-19] MEDS: HYDROcodone-acetaminophen 5-325 mg Tablet 1 TAB PO (10:28)
[2023-01-19] MEDS: sennosides-docusate Tablet 2 TAB PO ×2 (10:28→17:23)
[2023-01-19] MEDS: magnesium lactate 84 mg Tablet PO (10:28)
[2023-01-19] MEDS: fluconazole premix 200 MG/100 ML PREMIX 100 MG IV (12:03)
[2023-01-19] MEDS: sodium chloride 0.9% 500 ML 999 ML IV (12:05)
--- NOTE | 2023-01-19 13:00 | PM.PN ---
Subjective Subjective: Patient was seen this morning, she is much more alert awake to person, to place, not to time, at bedside, she can follow commands Vitals/I&O/Wt Last Vital Signs Temp 98.1 F 01/19/23 12:00 Pulse 104 H 01/19/23 12:10 Resp 18 01/19/23 12:00 BP 93/53 01/19/23 12:10 Pulse Ox 97 01/19/23 12:00 O2 Del Method 01/19/23 07:30 O2 Flow Rate 6 01/18/23 08:00 01/18/23 01/19/23 01/19/23 22:59 06:59 14:59 Intake Total 1060 / 1210 50 / 1260 0 / 0 Output Total 850 / 850 150 / 1000 Balance 210 / 360 -100 / 260 0 / 0 Physical Exam Const: COMMON NORMALS: no acute distress Resp: COMMON NORMALS: normal respiratory effort, No retractions, No use of accessory muscles and clear to auscultation bilaterally AUSCULTATION: clear to auscultation bilaterally Cardio: COMMON NORMALS: regular rate, regular rhythm, S1 normal heart sound present and S2 normal heart sound present RATE: regular rate RHYTHM: regular rhythm HEART SOUNDS: S1 normal heart sound present and S2 normal heart sound present GI: COMMON NORMALS: Normal to inspection, nondistended, normoactive bowel sounds present and non-tender Extremity: COMMON NORMALS: no pedal edema NARRATIVE EXTREMITY EXAM: Left knee, surgical site clean and dry Psych: COMMON NORMALS: mental status grossly normal Urinary Catheter Management: Gaytan: Cath Placed During This Visit: yes Urinary Catheter Date of Insertion: 01/16/23 Urinary Catheter Time of Insertion: 13:30 Data 01/19/23 04:27 01/19/23 04:27 Micro: Microbiology 01/17/23 02:27 Urine Culture - Preliminary Urine,Clean Catch Yeast species A&P Assessment and plan (1) Altered mental status: (2) UTI (urinary tract infection): Plan Altered mental status -Currently having delirium likely secondary UTI -During her prior hospitalization she also had issues with confusion -Has Parkinson's disease -Has underlying dementia -Likely secondary to underlying dementia, Parkinson's disease, hospitalization Plan -Will neurochecks, aspiration precautions -Afebrile overnight, normotensive -Chest x-ray no focal pneumonia -Blood work no acute findings -Blood cultures pending -Urinalysis indicated for UTI, continue meropenem and Diflucan for fungal infection concern -Monitor mentation closely -Is on Sinemet continue, continue Seroquel -Full code -DVT prophylaxis, and pain control as per orthopedic team 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
--- NOTE | 2023-01-19 13:11 | PC.NURSE ---
nurse was notified about low BP
[2023-01-19] MEDS: enoxaparin 40 mg/0.4 mL Syringe SUBCUT (17:23)
[2023-01-20 00:02] VITALS: BP 125/68; PULSE 65; RESP 19; TEMP 36.7; O2SAT 94
[2023-01-20 04:37] VITALS: BP 125/69; PULSE 70; RESP 18; TEMP 37; O2SAT 94
[2023-01-20 06:12] LABS: Basophils # 0.1 10^3/uL (0.0-0.1); Basophils % 1.1 %; Eosinophils # 0.4 10^3/uL (0.0-0.8); Eosinophils % 6.7 %; Hematocrit 29.5 % (37.0-47.0); Hemoglobin 9.1 g/dL (11.5-15.3); Lymphocytes # 1.4 10^3/uL (0.8-4.8); Lymphocytes % 22.4 %; Mean Corpuscular HGB Conc 30.8 g/dL (30.0-36.0); Mean Corpuscular Hemoglobin 29.4 pg (28.0-34.0); Mean Corpuscular Volume 95.2 fl (81-99); Mean Platelet Volume 11.4 fL (7.4-10.4); Monocytes # 0.4 10^3/uL (0.2-0.9); Neutrophils % 63.3 %; Nucleated Red Blood Cells % 0 %; Platelet Count 176 10^3/cmm (130-400); Red Cell Distribution Width 16.1 % (12.1-15.1); White Blood Count 6.2 10^3/uL (4.0-10.0)
[2023-01-20 06:31] LABS: Alanine Aminotransferase 6 U/L (0-33); Albumin Level 2.7 g/dL (3.5-5.2); Alkaline Phosphatase 67 U/L (35-105); Anion Gap 11.4 (5-19); Aspartate Amino Transferase 18 U/L (0-32); Blood Urea Nitrogen 15 mg/dL (8-23); Calcium 9.3 mg/dL (8.5-10.5); Carbon Dioxide 21 mmol/L (22-29); Chloride 114 mmol/L (98-107); Creatinine Clr Calc Pharmacy 62.5973; Globulin 2.7 g/dL (1.3-4.6); Glucose 97 mg/dL (65-115); Magnesium 1.6 mg/dL (1.7-2.3); Osmolality Calculated 297 mOsm/kg (285-295); Phosphorus 1.7 mg/dL (2.5-4.5); Potassium 3.4 mmol/L (3.5-5.1); Sodium 143 mmol/L (136-145); Total Bilirubin 0.4 mg/dL (0.15-1.2); Total Protein 5.4 g/dL (6.6-8.7)
[2023-01-20 08:40] VITALS: BP 132/65; PULSE 75; RESP 18; TEMP 37.1; O2SAT 94
[2023-01-20] MEDS: magnesium lactate 84 mg Tablet PO (08:47)
[2023-01-20] MEDS: sennosides-docusate Tablet 2 TAB PO (08:47)
[2023-01-20] MEDS: pantoprazole DR 40 mg Tablet PO (08:47)
[2023-01-20] MEDS: potassium chloride ER 20 mEq Tablet 40 MEQ PO (08:47)
[2023-01-20] MEDS: CELEcoxib 200 mg Capsule PO (08:47)
[2023-01-20] MEDS: phosphorus 250 mg Tablet PO (08:48)
[2023-01-20] MEDS: sucralfate 1 gm Tablet PO (08:48)
--- NOTE | 2023-01-20 10:13 | PC.SOCIAL ---
IMM Update pg 2 of IMM updated and reviewed w/ patients julianne Santiago via telephone. Copy left @ bedside and Copy in chart dated and initialed.
--- NOTE | 2023-01-20 11:08 | PM.DCS ---
Discharge Providers Date of Admission: 01/13/23 14:32 Date of Discharge: January 20, 2023 Attending Provider at Admission: Dougie Mccallum MD Attending Provider at Discharge: Dougie Mccallum MD Primary Care Provider: Neli De La Torre MD Diagnoses at Discharge Discharge Diagnosis (1) Altered mental status: Status: Acute (2) UTI (urinary tract infection): Status: Acute Reason for Visit Reason for Visit: Z96.659, S83.106A Hospital Course Hospital Course This is a 77-year-old female with a past medical history of dementia, Parkinson's disease, who was admitted to [facility] for knee surgery, hospitalist team was consulted for altered mental status Altered mental status likely secondary to prolonged hospitalization, UTI, candidal UTI. She received antibiotic therapy, antifungal therapy, overall her mentation improved. Will be discharged on Diflucan, antibiotic therapy with close follow-up with primary care provider as outpatient In terms of dislocated left total knee, status post revision, discharged home, outpatient follow-up with orthopedic, hydrocodone sparingly for pain. Physical Exam Const: COMMON NORMALS: no acute distress and patient oriented x3 Resp: COMMON NORMALS: normal respiratory effort, No retractions, No use of accessory muscles and clear to auscultation bilaterally AUSCULTATION: clear to auscultation bilaterally Cardio: COMMON NORMALS: regular rate, regular rhythm, S1 normal heart sound present and S2 normal heart sound present RATE: regular rate RHYTHM: regular rhythm HEART SOUNDS: S1 normal heart sound present and S2 normal heart sound present GI: COMMON NORMALS: Normal to inspection, nondistended, normoactive bowel sounds present and non-tender Extremity: COMMON NORMALS: no pedal edema Neuro: COMMON NORMALS: patient oriented x3 Psych: COMMON NORMALS: mental status grossly normal Urinary Catheter Management: Gaytan: Cath Placed During This Visit: yes Urinary Catheter Date of Insertion: 01/16/23 Urinary Catheter Time of Insertion: 13:30 Discharge Data Studies Completed and Pending Completed Studies During Hospitalization Category Date Time Status CT head wo con* [id number] Routine Cat Scan 01/15/23 15:[address] head wo con* [id number] Routine Cat Scan 01/18/23 11:51 Completed XR chest 1V portable [id number] Routine Exams 01/15/23 15:26 Completed XR knee LT 1-2V [id number] Routine Exams 01/13/23 14:51 Completed XR knee LT 1-2V [id number] Routine Exams 01/15/23 11:06 Completed XR knee LT 1-2V [id number] Routine Exams 01/16/23 15:36 Completed US renal BI* [id number] Stat Ultrasound 01/17/23 08:57 Completed Pending at discharge Category Date Time Status Blood Culture Stat Lab 01/15/23 15:54 Results Complete Blood Count w/Auto AM LABS Lab 01/21/23 04:00 Ordered Comprehensive Metabolic Panel AM LABS Lab 01/21/23 04:00 Ordered Magnesium AM LABS Lab 01/21/23 04:00 Ordered Phosphorus AM LABS Lab 01/21/23 04:00 Ordered Urine Culture Stat Lab 01/17/23 02:27 Results Radiology Impressions Chest X-Ray 01/15/23 15:26 IMPRESSION: No acute abnormality. Knee X-Ray 01/16/23 15:36 IMPRESSION: 1. Metallic knee replacement in good position. 2. Postoperative soft tissue findings are seen anterior knee 3. Otherwise No acute findings. Renal Ultrasound 01/17/23 08:57 IMPRESSION: 1. Mild bilateral renal atrophy. 2. No hydronephrosis in either kidney. 3. Increased renal echogenicity compatible with medical renal disease. 4. Gaytan catheter Head CT 01/18/23 11:51 IMPRESSION: There are senescent changes of the brain as described above. No evidence for large acute ischemic infarction or acute intracranial injury. Laboratory Results WBC 6.2 10^3/uL (4.0-10.0) 01/20/23 05:25 RBC 3.10 10^6/uL (4.1-5.3) L 01/20/23 05:25 Hgb 9.1 g/dL (11.5-15.3) L 01/20/23 05:25 Hct 29.5 % (37.0-47.0) L 01/20/23 05:25 MCV 95.2 fl (81-99) 01/20/23 05:25 MCH 29.4 pg (28.0-34.0) 01/20/23 05:25 MCHC 30.8 g/dL (30.0-36.0) 01/20/23 05:25 RDW 16.1 % (12.1-15.1) H 01/20/23 05:25 Plt Count 176 10^3/cmm (130-400) D 01/20/23 05:25 MPV 11.4 fL (7.4-10.4) H 01/20/23 05:25 Neut % (Auto) 63.3 % 01/20/23 05:25 Lymph % (Auto) 22.4 % 01/20/23 05:25 [place] % (Auto) 6.0 % 01/20/23 05:25 Eos % (Auto) 6.7 % 01/20/23 05:25 Baso % (Auto) 1.1 % 01/20/23 05:25 Neut # (Auto) 3.90 10^3/uL (1.8-7.7) 01/20/23 05:25 Lymph # (Auto) 1.4 10^3/uL (0.8-4.8) 01/20/23 05:25 [place] # (Auto) 0.4 10^3/uL (0.2-0.9) 01/20/23 05:25 Eos # (Auto) 0.4 10^3/uL (0.0-0.8) 01/20/23 05:25 Baso # (Auto) 0.1 10^3/uL (0.0-0.1) 01/20/23 05:25 Nucleated RBC % (auto) 0 % 01/20/23 05:25 Nucleated RBCs # 0.0 /100WBC 01/20/23 05:25 Specimen Type Arterial 01/15/23 16:31 Sample Site Radial, right 01/15/23 16:31 ABG pH 7.45 (7.35-7.45) 01/15/23 16:31 ABG pCO2 37.2 mmHg (35-45) 01/15/23 16:31 ABG pO2 72.0 mmHg (80.0-100.0) L 01/15/23 16:31 ABG HCO3 25.7 mmol/L (22-26) 01/15/23 16:31 ABG Base Excess 1.6 mmol/L (-2.0-2.0) 01/15/23 16:31 Preet Test Pos 01/15/23 16:31 Hematocrit 32.1 % (37-47) L 01/15/23 16:31 O2 Delivery Device Room air 01/15/23 16:31 FiO2 21.0 % 01/15/23 16:31 Lab Clerk ID glc 01/15/23 16:31 Sodium 143 mmol/L (136-145) 01/20/23 05:25 Potassium 3.4 mmol/L (3.5-5.1) L 01/20/23 05:25 Chloride 114 mmol/L (98-107) H 01/20/23 05:25 Carbon Dioxide 21 mmol/L (22-29) L 01/20/23 05:25 Anion Gap 11.4 (5-19) 01/20/23 05:25 BUN 15 mg/dL (8-23) 01/20/23 05:25 Creatinine 0.8 mg/dL (0.5-0.9) 01/20/23 05:25 GFR Calculation Not Reportable 01/20/23 05:25 Glucose 97 mg/dL (65-115) 01/20/23 05:25 POC Glucose 100 mg/dL (70-110) 01/18/23 16:09 Calculated Osmolality 297 mOsm/kg (285-295) H 01/20/23 05:25 Calcium 9.3 mg/dL (8.5-10.5) 01/20/23 05:25 Phosphorus 1.7 mg/dL (2.5-4.5) L 01/20/23 05:25 Magnesium 1.6 mg/dL (1.7-2.3) L 01/20/23 05:25 Total Bilirubin 0.4 mg/dL (0.15-1.2) 01/20/23 05:25 AST 18 U/L (0-32) 01/20/23 05:25 ALT 6 U/L (0-33) 01/20/23 05:25 Alkaline Phosphatase 67 U/L (35-105) 01/20/23 05:25 Ammonia 13 umol/L (11-51) 01/15/23 15:53 Troponin T Baseline 25 ng/L (0-10) H 01/15/23 15:53 Troponin T 120 Minute 24.04 ng/L (0-10) H 01/15/23 18:14 Delta Troponin T -0.96 ABS# (0-10) L 01/15/23 18:14 Troponin T Hi Sens 6Hr 21.26 ng/L (0-10) H 01/15/23 22:12 Troponin T Hi Sens 6Hr Delta -3.74 ng/L (0-12) L 01/15/23 22:12 C-Reactive Protein 89.7 mg/L (0.0-4.9) H 01/18/23 10:40 Total Protein 5.4 g/dL (6.6-8.7) L 01/20/23 05:25 Albumin 2.7 g/dL (3.5-5.2) L 01/20/23 05:25 Globulin 2.7 g/dL (1.3-4.6) 01/20/23 05:25 Vitamin B12 419 pg/mL (232-1245) 01/15/23 15:53 Folate 5.2 ng/mL (4.8-37.3) 01/15/23 15:53 Procalcitonin 0.10 ng/mL (0-0.5) 01/15/23 15:53 TSH 3.60 uIU/mL (0.27-4.20) 01/15/23 15:53 Urine Color Yellow (Yellow) 01/17/23 02:27 Urine Appearance Cloudy (CLEAR) A 01/17/23 02:27 Urine pH 5 (5-7) 01/17/23 02:27 Ur Specific [place] 1.025 (1.005-1.030) 01/17/23 02:27 Urine Protein 1+ (Negative) H 01/17/23 02:27 Urine Glucose (UA) Norm (Normal) 01/17/23 02:27 Urine Ketones 2+ (Negative) H 01/17/23 02:27 Urine Blood 3+ (Negative) H 01/17/23 02:27 Urine Nitrate Negative (Negative) 01/17/23 02:27 Urine Bilirubin Neg (Negative) 01/17/23 02:27 Urine Urobilinogen 1 mg/dL (Negative) H 01/17/23 02:27 Ur Leukocyte Esterase 2+ (Negative) H 01/17/23 02:27 Urine RBC >100 /hpf (0-2) H 01/17/23 02:27 Urine WBC >100 /hpf (0-5) H 01/17/23 02:27 Ur Squamous Epith Cells 0-4 /hpf (0-5) H 01/17/23 02:27 Amorphous Sediment Not Reportable 01/17/23 02:27 Urine Bacteria 3+ /hpf (NONE) H 01/17/23 02:27 Urine Yeast 2+ /hpf H 01/17/23 02:27 RPR Nonreactive (Nonreactive) 01/15/23 15:53 Coronavirus 229E (PCR) Not detected (NOT DETECT) 01/15/23 15:50 SARS-CoV-2 (PCR) Not detected (NOT DETECT) 01/15/23 15:50 Vitals Last Vital Signs Temp 98.8 F 01/20/23 08:40 Pulse 75 01/20/23 08:40 Resp 18 01/20/23 08:40 BP 132/65 01/20/23 08:40 Pulse Ox 94 01/20/23 08:40 O2 Del Method 01/20/23 08:40 O2 Flow Rate 6 01/18/23 08:00 Discharge Plan Discharge Patient Disposition: Home Condition: Stable Prescriptions: New hydrocodone-acetaminophen 5-325 mg Tablet 1 tab PO Q8H PRN (Reason: Moderate Pain) 7 Days Qty: 21 0RF sucralfate 1 gram Tablet 1 g PO Q12H 30 Days Qty: 60 0RF pantoprazole 40 mg Tablet,Delayed Release (Dr/Ec) 40 mg PO BID 30 Days Qty: 60 0RF Diflucan 200 mg tablet 200 mg PO DAILY 7 Days Qty: 7 0RF cefdinir 300 mg capsule 300 mg PO BID 5 Days Qty: 10 0RF aspirin 81 mg capsule 81 mg PO DAILY 30 Days Qty: 30 0RF Continued quetiapine [Seroquel] 25 mg tablet 25 mg PO DAILY 30 Days Qty: 30 3RF Rx Instructions: Take one tablet at bedtime. carbidopa-levodopa 25-100 mg tablet 1 tab PO QID Held midodrine 5 mg tablet 5 mg PO QID Hold Instructions: Resume on 02/03/23. until you see pmd Discontinued (DME) Knee immobilizer See Rx Instructions .ROUTE .MEDSUPPLY Qty: 1 0RF Rx Instructions: As directed aspirin 325 mg Tablet 650 mg PO QID Discharge Orders: Discharge Order (Routine); Ordered 01/20/23 Ordered By: Domo Jimenez Referrals: Dougie Mccallum MD [Physician] - 01/28/23 2:15 pm Discharge Diet: Advance as tolerated Discharge Activity: Limit activity as instructed Patient Instructions: Precautions after Total Joint Replacement Surgery (DC), Opioid Safety, Post Anesthesia Care, Post Operative Pain Activity Restrictions/Additional Instructions: Ambulte with physical therapy. change dressing as needed Use hydrocodone sparingly for pain Discharge Attestations Time Spent in Discharge Care*: greater than 30 min Quality Metrics Clinical Quality Measures [ No reported AMI, CVA or VTE this stay] Coding Level of Care Code 44146 Total time (in minutes) for Discharge: 40 Diagnoses Altered mental status R41.82 UTI (urinary tract infection) N39.0
[2023-01-20 11:48] VITALS: BP 136/78; PULSE 73; RESP 17; TEMP 36.8; O2SAT 94
--- NOTE | 2023-01-20 11:49 | P.PN_ITS ---
Subjective Subjective: Still somewhat confused. No complaints of knee pain Vitals/I&O/Wt Last Vital Signs Temp 98.2 F 01/20/23 11:48 Pulse 73 01/20/23 11:48 Resp 17 01/20/23 11:48 BP 136/78 01/20/23 11:48 Pulse Ox 94 01/20/23 11:48 O2 Del Method 01/20/23 11:48 O2 Flow Rate 6 01/18/23 08:00 01/19/23 01/20/23 01/20/23 22:59 06:59 14:59 Intake Total 240 / 1130 240 / 240 Output Total 200 / 200 80 / 280 Balance 40 / 930 -80 / 850 240 / 240 Physical Exam Narrative: Left knee incision clean and dry. Minimal swelling Motion full extension to 70 degrees Urinary Catheter Management: Gaytan: Cath Placed During This Visit: yes Urinary Catheter Date of Insertion: 01/16/23 Urinary Catheter Time of Insertion: 13:30 Data 01/20/23 05:25 01/20/23 05:25 Micro: Microbiology 01/17/23 02:27 Urine Culture - Preliminary Urine,Clean Catch Yeast species A&P Assessment and plan (1) Status post revision of total replacement of left knee: Patient refusing nursing home transfer. Will discharge home with and family with home health. Attestations Medical Necessity Statement*: Ready for discharge Coding Level of Care Code Acute Code for Chg Fwd Diagnoses Status post revision of total replacement of left knee Z96.652
[2023-01-20 12:56] VITALS: BP 136/78; PULSE 73; RESP 17; TEMP 36.8; O2SAT 94
== END 2023-01-20 13:54 | disposition home or self-care (01) | DRG 467 ==
LOC: MEDSURG 15:19
PROVIDERS: Family Medicine; Admitting Provider Orthopaedic Surgery; PCP Specialist; Visit Provider Orthopaedic Surgery
PROC: 0SWD0JZ Revision of Synthetic Substitute in Left Knee Joint, Open Approach (ICD-10-PCS; principal; 2023-01-13 13:00)
PROC: 0SWD0JZ Revision of Synthetic Substitute in Left Knee Joint, Open Approach (ICD-10-PCS; 2023-01-13 13:00)
PROC: 0SPD0JZ Removal of Synthetic Substitute from Left Knee Joint, Open Approach (ICD-10-PCS; principal; 2023-01-16 11:20)
DX: T84.023A Instability of internal left knee prosthesis, initial encounter (principal); B37.49 Other urogenital candidiasis; F05 Delirium due to known physiological condition; Y79.2 Prosthetic and other implants, materials and accessory orthopedic devices associated with adverse incidents; G20 Parkinson's disease; F02.80 Dementia in other diseases classified elsewhere, unspecified severity, without behavioral disturbance, psychotic disturbance, mood disturbance, and anxiety; Z96.653 Presence of artificial knee joint, bilateral; Z96.82 Presence of neurostimulator
CPT/HCPCS: 36415; 36416; 36600; 51702; 70450; 71045; 73560; 76770; 80048; 80053; 81001; 82140; 82607; 82746; 82803; 82962; 83735; 84100; 84145; 84443; 84484; 85018; 85025; 86140; 86592; 87040; 87086; 87106; 87635; 92523; 92610; 93005; 96372; 97110; 97162; 97164; 97167; 97530; 97535; C1776; J0171; J0690; J0696; J1450; J1580; J1610; J1650; J1885; J2185; J2704; J2795; J3010; J3490; J7030; J7040; J7042

== ENCOUNTER → 2023-01-28 14:19 | Outpatient (BNVA) | payer MEDICARE, SELFPAY | PROVIDERS: PCP Specialist; Visit Provider Orthopaedic Surgery | DX: Z96.652 Presence of left artificial knee joint (principal) | CPT/HCPCS: 99024 ==

== ENCOUNTER 2023-02-06 17:06 | Inpatient (IN) | payer MEDICARE, SELFPAY ==
[2023-02-06 17:07] VITALS: BP 151/98; PULSE 82; RESP 14; TEMP 36.6; O2SAT 94; BMI 36.3
--- NOTE | 2023-02-06 17:43 | XRR_ITS ---
PROCEDURE INFORMATION: Exam: XR Chest Exam date and time: 02/06/2023 5:58 PM Age: 77 years old Clinical indication: Cough; Additional info: Dyspnea/cough TECHNIQUE: Imaging protocol: Radiologic exam of the chest. Views: 1 view. COMPARISON: CR XR chest 1V portable [id number] 01/15/2023 4:12 PM FINDINGS: Tubes, catheters and devices: Neurostimulator device with leads directed superiorly is unchanged. Lungs: The lungs are hypoinflated with mild bibasilar atelectasis or infiltrates. The right medial lung apex is obscured by the patient's chin. Pleural spaces: Unremarkable. No pleural effusion. No pneumothorax. Heart/Mediastinum: The heart size is stable. Bones/joints: The bones are stable with bilateral shoulder replacements present. XR/XR chest 1V portable [id number] IMPRESSION: Hypoinflation with bibasilar atelectasis or infiltrates. Correlate for pulmonary infection.
--- NOTE | 2023-02-06 17:45 | CTR_ITS ---
PROCEDURE INFORMATION: Exam: CT Head Without Contrast Exam date and time: 02/06/2023 6:04 PM Age: 77 years old Clinical indication: Syncope and collapse; Prior surgery; Surgery type: Parkinson's nuro stimulator placement TECHNIQUE: Imaging protocol: Computed tomography of the head without contrast. Radiation optimization: All CT scans at this facility use at least one of these dose optimization techniques: automated exposure control; mA and/or kV adjustment per patient size (includes targeted exams where dose is matched to clinical indication); or iterative reconstruction. REPORTING DATA: Count of CT and Cardiac NM exams in prior 12 months: This patient has received 2 known CTs and 0 known cardiac nuclear medicine studies in the 12 months prior to the current study. COMPARISON: CT head wo con* [id number] 01/18/2023 12:20 PM RADIATION DOSE METRICS: Total DLP (mGy-cm): 1032.28 FINDINGS: Tubes, catheters and devices: Bilateral deep brain stimulators terminating in the thalami are unchanged. Brain: No acute infarct. No hemorrhage. Stable involutional changes of the brain. No mass effect. Cerebral ventricles: Stable ventricular size. No ventriculomegaly. Paranasal sinuses: Visualized sinuses are unremarkable. No fluid levels. Mastoid air cells: Visualized mastoid air cells are well aerated. Bones/joints: Unremarkable. No acute fracture. Soft tissues: Unremarkable. CT/CT head wo con* [id number] IMPRESSION: No acute intracranial abnormality.
--- NOTE | 2023-02-06 17:56 | ED_ITS ---
Documented by User: Chip Moyer DO 02/12/23 07:50 HPI - Syncope General: Chief Complaint: Syncope Stated Complaint: LETHARGY/ SYNCOPE Time Seen by Provider: 02/06/23 17:17 Source: patient Mode of arrival: EMS History of Present Illness: 77-year-old female presents emergency room after syncopal episode at home. She was sitting had a dinner table. She stated that she had a headache and she p assed out. She has some history of dementia. She recently had a left knee arthroplasty a few weeks ago. She has been trying to recover at home. She denies any chest pain shortness of breath she has had some dysuria no abdominal pain no dysuria urgency or frequency. She states other than being weak she is asymptomatic at this time. Her is with her at the bedside states they have been doing her own physical therapy at home. MD complaint: loss of consciousness Onset (ago): minute(s) Prodromal symptoms: lightheaded Witnessed: Yes - by Bystander Context: at rest Injuries sustained associated with event: none Associated symptoms: Reports weakness; Deny abdominal pain, chest pain, fever(s) or nausea Treatments prior to arrival: none Review of Systems Const: Denies: fever(s), chills, body aches, change in appetite, fatigue or malaise ENMT: Denies: throat pain, ear or mastoid pain, nasal discharge or nasal congestion Card: Denies: chest pain, edema, dyspnea on exertion or orthopnea Resp: Denies: dyspnea, productive cough or non-productive cough GI: Denies: abdominal pain, nausea, vomiting, hematemesis, coffee ground emesis, diarrhea, constipation, bloating, hematochezia or melena : Denies: flank pain, difficulty voiding, dysuria, urinary frequency or urinary urgency Skin/Breast: Denies: rash or pruritus PFSH ED PFSH: Medical History Altered mental status BMI 30.0-30.9,adult Parkinson disease Pneumonia Syncope and collapse Surgical History History of arthroplasty of both knees S/P revision of total knee Status post deep brain stimulator placement Status post revision of total replacement of left knee Family History Other CAD (coronary artery disease) Cancer Diabetes Stroke Denies family history of Hypertension Social History Smoking and tobacco status: never smoked Alcohol intake: never Substance/Drug Use: never Physical Exam Const: COMMON NORMALS: no acute distress GENERAL APPEARANCE: cooperative and comfortable ORIENTATION/CONSCIOUSNESS: Yes awake, Yes oriented to person, Yes oriented to place and Yes oriented to time HENMT: COMMON NORMALS: normocephalic, atraumatic and hearing grossly normal bilaterally HEAD & SCALP: normocephalic and atraumatic Resp: COMMON NORMALS: normal respiratory effort, No retractions, No use of accessory muscles and clear to auscultation bilaterally AUSCULTATION: clear to auscultation bilaterally Cardio: COMMON NORMALS: regular rate, regular rhythm and No murmurs present (Cardio) RATE: regular rate RHYTHM: regular rhythm GI: COMMON NORMALS: Soft to palpation and No hepatosplenomegaly present AUSCULTATION: Yes normoactive bowel sounds PALPATION: Yes Soft to palpation, No Tenderness to palpation present (GI), No Guarding due to palpation present (GI) and Yes No hepatosplenomegaly present Extremity: COMMON NORMALS: normal to inspection, capillary refill normal, no clubbing, cyanosis or edema, no calf tenderness and no pedal edema OTHER: Incision left knee healing well no sign of infection no redness no erythema no drainage no dehiscence Neuro: SENSORIUM/ORIENTATION: Yes oriented to person, Yes oriented to place and Yes oriented to time Skin: COMMON NORMALS: no rashes or lesions noted GENERAL SKIN EXAM: no rashes or lesions noted Course Vital Signs: Vital signs: Vital Signs Temperature 97.5 F L 02/11/23 13:53 Pulse Rate 66 02/11/23 13:53 Respiratory Rate 16 02/11/23 13:53 Blood Pressure 136/68 02/11/23 13:53 Pulse Oximetry 93 02/11/23 13:53 Oxygen Delivery Me thod Room Air 02/11/23 11:16 MDM - Syncope Medical Decision Making Labs and imaging pending. Care signed out to Dr. Santos at change of shift. See final notes for diagnosis and disposition. Patient presents here after a syncopal event at home. She states she has been extremely weak she had knee surgery done 3 weeks ago she states she has not been able to walk since then. She states that she is not able to get around her house she states she cannot care for self anymore did give her the option of being admitted usp she feels like she needs to go to nursing home home to get stronger spoke to the hospitalist will admit at this time. Lab Data 02/08/23 20:32 02/08/23 20:32 Radiology Impressions Chest X-Ray 02/06/23 17:43 IMPRESSION: Hypoinflation with bibasilar atelectasis or infiltrates. Correlate for pulmonary infection. Head CT 02/06/23 17:45 IMPRESSION: No acute intracranial abnormality. Carotid Doppler Study 02/09/23 11:12 IMPRESSION: No carotid arterial stenosis. REFERENCES: SRU CRITERIA. The degree of internal carotid artery stenosis is based on criteria defined by the Society of Radiologists in Ultrasound (SRU). Normal is no stenosis. Mild is less than 50% stenosis. Moderate is 50-69% stenosis. Severe is greater than 69% stenosis to near occlusion. Near occlusion is a markedly narrowed lumen. Total occlusion is no detectable patent lumen. Laboratory Results WBC 7.3 10^3/uL (4.0-10.0) 02/06/23 18: RBC 3.61 10^6/uL (4.1-5.3) L 02/06/23 18:32 Hgb 10.6 g/dL (11.5-15.3) L 02/06/23 18: Hct 34.5 % (37.0-47.0) L 02/06/23 18: MCV 95.6 fl (81-99) 02/06/23 18: MCH 29.4 pg (28.0-34.0) 02/06/23 18: MCHC 30.7 g/dL (30.0-36.0) 02/06/23 18: RDW 15.4 % (12.1-15.1) H 02/06/23 18:32 Plt Count 293 10^3/cmm (130-400) 02/06/23 18: MPV 10.7 fL (7.4-10.4) H 02/06/23 18: Neut % (Auto) 79.5 % 02/06/23 18:32 Lymph % (Auto) 11.4 % 02/06/23 18:32 [place] % (Auto) 5.2 % 02/06/23 18:32 Eos % (Auto) 2.3 % 02/06/23 18:32 Baso % (Auto) 1.2 % 02/06/23 18:32 Neut # (Auto) 5.79 10^3/uL (1.8-7.7) 02/06/23 18:32 Lymph # (Auto) 0.8 10^3/uL (0.8-4.8) 02/06/23 18:32 [place] # (Auto) 0.4 10^3/uL (0.2-0.9) 02/06/23 18:32 Eos # (Auto) 0.2 10^3/uL (0.0-0.8) 02/06/23 18:32 Baso # (Auto) 0.1 10^3/uL (0.0-0.1) 02/06/23 18:32 Nucleated RBC % (auto) 0 % 02/06/23 18:32 Nucleated RBCs # 0.0 /100WBC 02/06/23 18:32 Sodium 145 mmol/L (136-145) 02/06/23 18:32 Potassium 4.4 mmol/L (3.5-5.1) 02/06/23 18:32 Chloride 106 mmol/L (98-107) 02/06/23 18:32 Carbon Dioxide 30 mmol/L (22-29) H 02/06/23 18:32 Anion Gap 13.4 (5-19) 02/06/23 18:32 BUN 14 mg/dL (8-23) 02/06/23 18:32 Creatinine 1.0 mg/dL (0.5-0.9) H 02/06/23 18:32 GFR Calculation Not Reportable 02/06/23 18:32 Glucose 115 mg/dL (65-115) 02/06/23 18:32 Calculated Osmolality 301 mOsm/kg (285-295) H 02/06/23 18:32 Calcium 10.5 mg/dL (8.5-10.5) 02/06/23 18:32 Total Bilirubin 0.2 mg/dL (0.15-1.2) 02/06/23 18:32 AST 17 U/L (0-32) 02/06/23 18:32 ALT 9 U/L (0-33) 02/06/23 18:32 Alkaline Phosphatase 108 U/L (35-105) H 02/06/23 18:32 Creatine Kinase 28 U/L (26-192) 02/06/23 18:32 Troponin T 120 Minute 41.08 ng/L (0-10) H 02/06/23 04:56 Delta Troponin T 0.08 ABS# (0-10) 02/06/23 04:56 Total Protein 6.7 g/dL (6.6-8.7) 02/06/23 18:32 Albumin 3.3 g/dL (3.5-5.2) L 02/06/23 18:32 Globulin 3.4 g/dL (1.3-4.6) 02/06/23 18:32 Discharge Plan Discharge Patient Disposition: Admitted As Inpatient Admit Provider: Domo Jimenez Clinical Impression: Syncope, Status post total knee replacement, left, Pneumonia Condition: Stable Coding Level of Care Code ED Occupational Therapy Aide for Chg Fwd Documented by User: Miriam Santos MD 02/06/23 19:41 HPI - Syncope General: Chief Complaint: Syncope Stated Complaint: LETHARGY/ SYNCOPE Time Seen by Provider: 02/06/23 17:17 [facility] ED PFSH: Medical History Altered mental status BMI 30.0-30.9,adult Parkinson disease Pneumonia Syncope and collapse Surgical History History of arthroplasty of both knees S/P revision of total knee Status post deep brain stimulator placement Status post revision of total replacement of left knee Family History Other CAD (coronary artery disease) Cancer Diabetes Stroke Denies family history of Hypertension Social History Smoking and tobacco status: never smoked Alcohol intake: never Substance/Drug Use: never Course Vital Signs: Vital signs: Vital Signs Temperature 97.5 F L 02/11/23 13:53 Pulse Rate 66 02/11/23 13:53 Respiratory Rate 16 02/11/23 13:53 Blood Pressure 136/68 02/11/23 13:53 Pulse Oximetry 93 02/11/23 13:53 Oxygen Delivery Me thod Room Air 02/11/23 11:16 MDM - Syncope Medical Decision Making Patient presents here after a syncopal event at home. She states she has been extremely weak she had knee surgery done 3 weeks ago she states she has not been able to walk since then. She states that she is not able to get around her house she states she cannot care for self anymore did give her the option of being admitted usp she feels like she needs to go to nursing home home to get stronger spoke to the hospitalist will admit at this time. Lab Data 02/08/23 20:32 02/08/23 20:32 Radiology Impressions Chest X-Ray 02/06/23 17:43 IMPRESSION: Hypoinflation with bibasilar atelectasis or infiltrates. Correlate for pulmonary infection. Head CT 02/06/23 17:45 IMPRESSION: No acute intracranial abnormality. Carotid Doppler Study 02/09/23 11:12 IMPRESSION: No carotid arterial stenosis. REFERENCES: SRU CRITERIA. The degree of internal carotid artery stenosis is based on criteria defined by the Society of Radiologists in Ultrasound (SRU). Normal is no stenosis. Mild is less than 50% stenosis. Moderate is 50-69% stenosis. Severe is greater than 69% stenosis to near occlusion. Near occlusion is a markedly narrowed lumen. Total occlusion is no detectable patent lumen. Laboratory Results WBC 7.3 10^3/uL (4.0-10.0) 02/06/23 18:32 RBC 3.61 10^6/uL (4.1-5.3) L 02/06/23 18:32 Hgb 10.6 g/dL (11.5-15.3) L 02/06/23 18:32 Hct 34.5 % (37.0-47.0) L 02/06/23 18: MCV 95.6 fl (81-99) 02/06/23 18: MCH 29.4 pg (28.0-34.0) 02/06/23 18: MCHC 30.7 g/dL (30.0-36.0) 02/06/23 18: RDW 15.4 % (12.1-15.1) H 02/06/23 18: Plt Count 293 10^3/cmm (130-400) 02/06/23 18: MPV 10.7 fL (7.4-10.4) H 02/06/23 18:32 Neut % (Auto) 79.5 % 02/06/23 18: Lymph % (Auto) 11.4 % 02/06/23 18: [place] % (Auto) 5.2 % 02/06/23 18: Eos % (Auto) 2.3 % 02/06/23 18: Baso % (Auto) 1.2 % 02/06/23 18: Neut # (Auto) 5.79 10^3/uL (1.8-7.7) 02/06/23 18:32 Lymph # (Auto) 0.8 10^3/uL (0.8-4.8) 02/06/23 18:32 [place] # (Auto) 0.4 10^3/uL (0.2-0.9) 02/06/23 18: Eos # (Auto) 0.2 10^3/uL (0.0-0.8) 02/06/23 18: Baso # (Auto) 0.1 10^3/uL (0.0-0.1) 02/06/23 18: Nucleated RBC % (auto) 0 % 02/06/23 18: Nucleated RBCs # 0.0 /100WBC 02/06/23 18:32 Sodium 145 mmol/L (136-145) 02/06/23 18: Potassium 4.4 mmol/L (3.5-5.1) 02/06/23 18:32 Chloride 106 mmol/L (98-107) 02/06/23 18: Carbon Dioxide 30 mmol/L (22-29) H 02/06/23 18:32 Anion Gap 13.4 (5-19) 02/06/23 18:32 BUN 14 mg/dL (8-23) 02/06/23 18:32 Creatinine 1.0 mg/dL (0.5-0.9) H 02/06/23 18:32 GFR Calculation Not Reportable 02/06/23 18:32 Glucose 115 mg/dL (65-115) 02/06/23 18:32 Calculated Osmolality 301 mOsm/kg (285-295) H 02/06/23 18:32 Calcium 10.5 mg/dL (8.5-10.5) 02/06/23 18:32 Total Bilirubin 0.2 mg/dL (0.15-1.2) 02/06/23 18:32 AST 17 U/L (0-32) 02/06/23 18:32 ALT 9 U/L (0-33) 02/06/23 18:32 Alkaline Phosphatase 108 U/L (35-105) H 02/06/23 18:32 Creatine Kinase 28 U/L (26-192) 02/06/23 18:32 Troponin T 120 Minute 41.08 ng/L (0-10) H 02/06/23 04:56 Delta Troponin T 0.08 ABS# (0-10) 02/06/23 04:56 Total Protein 6.7 g/dL (6.6-8.7) 02/06/23 18:32 Albumin 3.3 g/dL (3.5-5.2) L 02/06/23 18:32 Globulin 3.4 g/dL (1.3-4.6) 02/06/23 18:32 Discharge Plan Discharge Patient Disposition: Admitted As Inpatient Admit Provider: Domo Jimenez Clinical Impression: Syncope, Status post total knee replacement, left, Pneumonia Condition: Stable Coding Level of Care Code ED Occupational Therapy Aide for Ender Cee
[2023-02-06 18:41] LABS: Basophils # 0.1 10^3/uL (0.0-0.1); Basophils % 1.2 %; Eosinophils # 0.2 10^3/uL (0.0-0.8); Eosinophils % 2.3 %; Hematocrit 34.5 % (37.0-47.0); Hemoglobin 10.6 g/dL (11.5-15.3); Lymphocytes # 0.8 10^3/uL (0.8-4.8); Lymphocytes % 11.4 %; Mean Corpuscular HGB Conc 30.7 g/dL (30.0-36.0); Mean Corpuscular Hemoglobin 29.4 pg (28.0-34.0); Mean Corpuscular Volume 95.6 fl (81-99); Mean Platelet Volume 10.7 fL (7.4-10.4); Monocytes # 0.4 10^3/uL (0.2-0.9); Monocytes % 5.2 %; Neutrophils # 5.79 10^3/uL (1.8-7.7); Neutrophils % 79.5 %; Nucleated Red Blood Cells % 0 %; Platelet Count 293 10^3/cmm (130-400); Red Blood Count 3.61 10^6/uL (4.1-5.3); Red Cell Distribution Width 15.4 % (12.1-15.1); White Blood Count 7.3 10^3/uL (4.0-10.0)
[2023-02-06] MEDS: HYDROcodone-acetaminophen 5-325 mg Tablet 1 TAB PO (18:51)
--- NOTE | 2023-02-06 18:53 | ECG_ITS ---
[facility] Test Date: 2023-02-06 Pat Name: Leonor Snyder Department: Room: Gender: Female Twitchell Operator: : 1945 Requested By: Chip Casarez Order Number: [id number] Bob MD: Arron Bourgeois M.D. Measurements Intervals [place] Rate: 76 P: 58 IL: 192 QRS: -10 QRSD: 154 T: 113 QT: 411 QTc: 463 Interpretive Statements SINUS RHYTHM LEFT BUNDLE BRANCH BLOCK [120+ ms QRS DURATION, 80+ ms Q/S IN V1/V2, 85+ ms R IN I/aVL/V5/V6] Compared to ECG 01/15/2023 21:06:54 No significant changes Electronically Signed On 02-07-2023 1:34:50 CDT by Arron Bourgeois M.D. [id number]
[2023-02-06 18:59] VITALS: BP 137/65; O2SAT 95
[2023-02-06 19:00] LABS: Alanine Aminotransferase 9 U/L (0-33); Albumin Level 3.3 g/dL (3.5-5.2); Alkaline Phosphatase 108 U/L (35-105); Aspartate Amino Transferase 17 U/L (0-32); Blood Urea Nitrogen 14 mg/dL (8-23); Calcium 10.5 mg/dL (8.5-10.5); Carbon Dioxide 30 mmol/L (22-29); Creatine Phosphokinase 28 U/L (26-192); Globulin 3.4 g/dL (1.3-4.6); Glucose 115 mg/dL (65-115); Total Bilirubin 0.2 mg/dL (0.15-1.2); Total Protein 6.7 g/dL (6.6-8.7)
[2023-02-06 19:08] LABS: Anion Gap 13.4 (5-19); Chloride 106 mmol/L (98-107); Osmolality Calculated 301 mOsm/kg (285-295); Potassium 4.4 mmol/L (3.5-5.1); Sodium 145 mmol/L (136-145)
[2023-02-06 19:15] VITALS: BP 141/75; PULSE 79; RESP 16; O2SAT 95
--- NOTE | 2023-02-06 20:04 | PC.PHAR ---
pt was taking Lovenox 40mg/0.4mL once daily x 15 days. Pt finished taking on 02/04/23
[2023-02-06] MEDS: sodium chloride 0.9% 1,000 ML 999 ML IV (20:30)
[2023-02-06 21:29] VITALS: BP 108/63; BP 109/57; BP 98/40; PULSE 79; PULSE 86; PULSE 93
[2023-02-06 21:30] VITALS: BP 135/71; PULSE 72; RESP 17; TEMP 36.8; O2SAT 95
--- NOTE | 2023-02-06 21:35 | PM.HP ---
Providers/Chief Complaint Admitting Physician: Domo Jimenez MD Primary Care Provider: Neli De La Torre MD Chief Complaint: LETHARGY/ SYNCOPE History of Present Illness Leonor Snyder is a 77 year old female with a past medical history of dementia, Parkinson disease, recurrent UTIs recently admitted to [facility] for dislocated left knee, status post revision, also had issues with recurrent UTI, anemia during the hospitalization, discharged home, to the care of her family, currently she is alert to person, not to place, not to time, does not follow commands, she has no complaints, her at bedside tells me that he has been working with her, increasing the mobility of her left knee, she is now up into a wheelchair overall she has been doing well he says, but this evening, she was sitting up at the table, when she suddenly passed out, he tells me that her eyes rolled backwards and she went backwards he is not exactly sure if it was a seizure-like episode, but she was not really responsive, and she has some jerking motions, it is uncertain if she lost her blood pressure or pulse, he tells me that she has been a bit more confused than normal, he tells me that she is somewhat back to her baseline, more right now, no facial droop, no slurring of her words during the episode, currently I cannot discern any facial droop no slurring of words, she does have spontaneous movement of upper and lower extremities, but does display generalized weakness, lack of effort for movement in her bilateral lower extremities specially the left knee. Review of Systems General: Reports: ROS unobtainable due to mental status Medications/Allergies Home Medications Medication Instructions Recorded Confirmed Last Taken Type carbidopa 25 mg-levodopa 100 mg 1 tab PO QID 08/27/22 02/06/23 02/06/23 History tablet midodrine 5 mg tablet 5 mg PO QID 08/27/22 02/06/23 02/06/23 History quetiapine 25 mg tablet (Seroquel) 25 mg PO DAILY 30 days #30 tabs 01/14/23 02/06/23 02/05/23 Rx pantoprazole 40 mg tablet,delayed 40 mg PO BID 30 days #60 tabs 01/20/23 02/06/23 02/06/23 Rx release sucralfate 1 gram tablet 1 g PO Q12H 30 days #60 tabs 01/20/23 02/06/23 02/06/23 Rx Allergies Allergy/AdvReac Type Severity Reaction Status Date / Time acetaminophen AdvReac Unknown ALTERED Verified 01/28/23 14:22 PERSONALITY PFSH Acute PFSH: Medical History Parkinson disease Surgical History History of arthroplasty of both knees Status post deep brain stimulator placement Family History Other CAD (coronary artery disease) Cancer Diabetes Stroke Denies family history of Hypertension Social History Smoking and tobacco status: never smoked Alcohol intake: never Substance/Drug Use: never Vitals/I&O/Wt Last Vital Signs Temp 97.9 F 02/06/23 17:07 Pulse 79 02/06/23 19:15 Resp 16 02/06/23 19:15 BP 141/75 02/06/23 19:15 Pulse Ox 95 02/06/23 19:15 O2 Del Method Room Air 02/06/23 17:07 Weight last 48 hrs Weight 102.058 kg Physical Exam Const: COMMON NORMALS: no acute distress EXAM LIMITATIONS: altered mental status ORIENTATION/CONSCIOUSNESS: Yes awake and Yes oriented to person; not oriented to place and not oriented to time HENMT: COMMON NORMALS: normocephalic HEAD & SCALP: normocephalic Eye: COMMON NORMALS: Equal, round and reactive pupils present Neck/C-Spine: COMMON NORMALS: no JVD Lymph: LYMPHATIC: no lymphadenopathy noted Resp: COMMON NORMALS: normal respiratory effort, No retractions, No use of accessory muscles and clear to auscultation bilaterally AUSCULTATION: clear to auscultation bilaterally Cardio: COMMON NORMALS: regular rate, regular rhythm, S1 normal heart sound present and S2 normal heart sound present RATE: regular rate RHYTHM: regular rhythm HEART SOUNDS: S1 normal heart sound present and S2 normal heart sound present GI: COMMON NORMALS: Normal to inspection, nondistended, normoactive bowel sounds present, Soft to palpation and non-tender Extremity: COMMON NORMALS: no pedal edema NARRATIVE EXTREMITY EXAM: Left knee, surgical site clean and dry Neuro: OTHER: Is able to smile for me, has spontaneous movement of upper and lower extremities, does display generalized weakness, shows lack of effort and movement of bilateral lower extremities, no facial droop, no slurring of her words, is able to wiggle her toes, able to squeeze my fingers Data 02/06/23 18:32 02/06/23 18:32 Other data: Reviewed blood work EKG shows left bundle branch block old, personally reviewed by me Chest x-ray personally reviewed by me, bibasilar atelectasis, infiltrates bilaterally A&P Assessment and plan (1) Altered mental status: (2) Status post revision of total replacement of left knee: (3) BMI 30.0-30.9,adult: (4) S/P revision of total knee: (5) Pneumonia: (6) Syncope and collapse: Plan Syncope and collapse -Etiology unclear at this time -Serial EKGs, serial troponins, telemetry monitoring -Cardiac echo -Carotid artery ultrasound -Follow blood work -Magnesium, TSH Altered mental status -Does have a history of altered mental status during her prior hospitalizations underlying dementia, delirium, has history of recurrent UTIs -Neurochecks, NIH stroke scale, aspiration precautions History of recurrent UTIs we will obtain a UA, placed on Rocephin Pneumonia? -Chest x-ray shows bibasilar atelectasis, infiltrates -Recent hospitalization for left knee surgery, -We will start on Rocephin azithromycin -Follow blood cultures, sputum cultures GLORIA, gentle IV hydration Status post left total knee revision, venous ultrasound for DVT History of dementia History of anemia History of thrombocytopenia History of left bundle branch block Will possibly require placement at nursing facility pt/ot Full code Lovenox for DVT prophylaxis Attestations Medical Necessity Statement*: Patient requires hospitalization, inpatient, greater than 2 midnights, for syncope and collapse, pneumonia, altered mental status, Coding Level of Care Code Acute Code for Chg Fwd Diagnoses Altered mental status R41.82 Status post revision of total replacement of left knee Z96.652 BMI 30.0-30.9,adult Z68.30 S/P revision of total knee Z96.659 Pneumonia J18.9 Syncope and collapse R55
--- NOTE | 2023-02-06 21:50 | ECG_ITS ---
[facility] Test Date: 2023-02-06 Pat Name: Leonor Snyder Department: Room: 251 Gender: Female Manager Data: : 1945 Requested By: Domo Jimenez Order Number: [id number] Bob MD: Arron Bourgeois M.D. Measurements Intervals [place] Rate: 71 P: 0 GA: 0 QRS: -4 QRSD: 161 T: 103 QT: 428 QTc: 466 Interpretive Statements Possible sinus rhythm LEFT BUNDLE BRANCH BLOCK [120+ ms QRS DURATION, 80+ ms Q/S IN V1/V2, 85+ ms R IN I/aVL/V5/V6] Compared to ECG 02/06/2023 18:53:58 Sinus rhythm no longer present Electronically Signed On 02-07-2023 21:56:13 CDT by Arron Bourgeois M.D. [id number]
[2023-02-06 22:00] VITALS: PULSE 80
[2023-02-06] MEDS: cefTRIAXone 1,000 MG in sodium chloride 0.9% (plus) 50 ML 100 MG IV (22:27)
[2023-02-06] MEDS: pantoprazole 40 mg SDV IVP (22:28)
[2023-02-06] MEDS: enoxaparin 40 mg/0.4 mL Syringe SUBCUT (22:28)
[2023-02-06] MEDS: sodium chloride 0.9% 1,000 ML 75 ML IV (22:35)
[2023-02-06 23:19] LABS: Add Urine Microscopic? YES; Bilirubin Urine Neg (Negative); Blood Urine 2+ (Negative); Glucose Urine UA Norm (Normal); Ketones Urine Negative (Negative); Leukocyte Esterase Urine 2+ (Negative); Nitrate Urine Negative (Negative); Protein Urine Neg (Negative); Specific Gravity, Urine 1.025 (1.005-1.030); Urine Appearance SL Hazy (CLEAR); Urine Color Yellow (Yellow); Urobilinogen Urine 1 mg/dL (Negative); pH Urine 5 (5-7)
[2023-02-06 23:20] LABS: Add Urine Culture? Yes; Bacteria Urine 3+ /hpf; WBC Urine 25-40 /hpf (0-5)
[2023-02-07] VITALS (8 sets, daily range): BP systolic 108–171; BP diastolic 62–77; PULSE 61–84; RESP 15–19; TEMP 36.6–37.2; O2SAT 90–97
[2023-02-07] MEDS: azithromycin 500 MG in sodium chloride 0.9% 250 ML 250 MG IV (00:21)
[2023-02-07 01:33] LABS: Adenovirus Not Detected (NOT DETECT); Chlamydia Pneumoniae Not Detected (NOT DETECT); Coronavirus 229E,HKU1,NL63,OC4 Not Detected (NOT DETECT); Human Metapneumovirus Not Detected (NOT DETECT); Human Rhinovirus/Enterovirus Not Detected (NOT DETECT); Influenza A Not Detected (NOT DETECT); Influenza A H1 Not Detected (NOT DETECT); Influenza A H1-2009 Not Detected (NOT DETECT); Influenza A H3 Not Detected (NOT DETECT); Influenza B Not Detected (NOT DETECT); Mycoplasma Pneumoniae Not Detected (NOT DETECT); Parainfluenza Virus Type 1 Not Detected (NOT DETECT); Parainfluenza Virus Type 2 Not Detected (NOT DETECT); Parainfluenza Virus Type 3 Not Detected (NOT DETECT); Parainfluenza Virus Type 4 Not Detected (NOT DETECT); Respiratory Syncytial Virus A Not Detected (NOT DETECT); Respiratory Syncytial Virus B Not Detected (NOT DETECT); SARS-COV-2 Not Detected (NOT DETECT)
--- NOTE | 2023-02-07 03:21 | PC.NURSE ---
Patient refused ultrasound tests: Venous duplex, carotid duplex and Echo. Patient also refused EKG stating That machine is going to kill me. Patient educated on the purpose of these tests. Provider notified.
[2023-02-07 04:05] LABS: Lactic Sepsis W/Reflex 1.1 mmol/L (0.5-2.2)
--- NOTE | 2023-02-07 04:05 | PC.NURSE ---
Patient refused to let MAINFRAME SOFTWARE DEVELOPER do orthostatic vitals
[2023-02-07 04:08] LABS: Troponin(5th) Baseline 41 ng/L (0-10)
[2023-02-07 04:14] LABS: Procalcitonin 0.08 ng/mL (0-0.5)
[2023-02-07 04:16] LABS: NT Pro B Type Natriuretic Pept 614 pg/mL (0-450)
[2023-02-07 04:27] LABS: C Reactive Protein 6.4 mg/L (0.0-4.9)
[2023-02-07 04:49] LABS: Anion Gap 13.7 (5-19); Blood Urea Nitrogen 15 mg/dL (8-23); Calcium 10.1 mg/dL (8.5-10.5); Carbon Dioxide 26 mmol/L (22-29); Chloride 108 mmol/L (98-107); Glucose 101 mg/dL (65-115); Osmolality Calculated 299 mOsm/kg (285-295); Phosphorus 2.4 mg/dL (2.5-4.5); Potassium 3.7 mmol/L (3.5-5.1); Sodium 144 mmol/L (136-145); Thyroid Stimulating Hormone 3.73 uIU/mL (0.27-4.20)
[2023-02-07 05:10] LABS: Basophils # 0.1 10^3/uL (0.0-0.1); Basophils % 1.8 %; Eosinophils # 0.2 10^3/uL (0.0-0.8); Eosinophils % 3.8 %; Hematocrit 29.8 % (37.0-47.0); Hemoglobin 9.3 g/dL (11.5-15.3); Lymphocytes # 1.4 10^3/uL (0.8-4.8); Lymphocytes % 23.4 %; Mean Corpuscular HGB Conc 31.2 g/dL (30.0-36.0); Mean Corpuscular Volume 96.1 fl (81-99); Mean Platelet Volume 10.4 fL (7.4-10.4); Monocytes # 0.4 10^3/uL (0.2-0.9); Monocytes % 6.6 %; Neutrophils # 3.86 10^3/uL (1.8-7.7); Neutrophils % 64.1 %; Nucleated Red Blood Cells % 0 %; Platelet Count 261 10^3/cmm (130-400); Red Cell Distribution Width 15.3 % (12.1-15.1)
[2023-02-07 05:31] LABS: Troponin 5 2HR 41.08 ng/L (0-10)
[2023-02-07 05:33] LABS: Troponin 5 2HR Delta 0.08 ABS# (0-10)
[2023-02-07] MEDS: quetiapine 25 mg Tablet PO (08:49)
[2023-02-07] MEDS: carbidopa-levodopa 25-100mg Tablet 1 EACH PO ×3 (08:49→18:38)
[2023-02-07] MEDS: sucralfate 1 gm Tablet PO (08:49)
[2023-02-07 10:17] LABS: Troponin 5 6HR 40.36 ng/L (0-10); Troponin 5 6HR Delta -0.64 ng/L (0-12)
--- NOTE | 2023-02-07 10:42 | USCV_ITS ---
LE Venous Duplex RIGHT Leonor Snyder Age: 77 Gender: F : 1945 Exam Date: 02/07/2023 15:40 Ordering Phys: Wanda Graham MD Technologist: ODALYS Exam Location: [facility] [place] Indication: dvt HISTORY: DVT. PROCEDURES: Venous duplex imaging was performed in only the right lower extremity. patient refused to continue with left lower extremity. FINDINGS: Normal 2-D Doppler and augmentation and compressibility throughout the lower extremity venous structures. Additional imaging through the proximal calf veins also reveals no thrombus. Limited evaluation of the greater saphenous vein is patent with acute thrombus. CONCLUSIONS No DVT right lower extremity. Right GSV thrombophlebitis. Patient refused to continue with left lower extremity. Dr. Demetria Saldana DO (Electronically Signed) Final Date: 10 February 2023 07:42 S
[2023-02-07] MEDS: sodium chloride 0.9% 1,000 ML 75 ML IV (13:14)
--- NOTE | 2023-02-07 18:06 | PM.PN ---
Subjective Subjective: Overnight labs and H&P reviewed. Patient is confused. She answers questions that I am asking her roommate. Does not know where she is. Is only able to tell me her name. Refusing to eat on multiple occasions. Continuously removing her telemetry leads. Medications: Reviewed: Yes Vitals/I&O/Wt Last Vital Signs Temp 97.8 F 02/09/23 15:35 Pulse 81 02/09/23 15:35 Resp 15 02/09/23 15:35 BP 124/71 02/09/23 15:35 Pulse Ox 94 02/09/23 15:35 O2 Del Method Room Air 02/09/23 15:35 02/09/23 02/09/23 02/09/23 06:59 14:59 22:59 Intake Total 290 / 290 Balance 290 / 290 Physical Exam Narrative: General: No acute distress, AO x1 HEENT: PERRLA, pupils bilaterally equal and reactive, pallors not present Chest: Normal vesicular breath sounds, no added sounds, equal good air entry bilaterally CVS: S1-S2 regular, no murmurs, no tachycardia, no gallops, no rubs Abdomen: Soft, nontender, no organomegaly, bowel sounds present Neuro: No focal deficits, no facial deformity, AO x3, power 5/5 in all limbs Extremities: No edema clubbing or cyanosis. Healed incision over her left knee from recent surgery. Data 02/07/23 04:56 02/07/23 03:30 Micro: Microbiology 02/06/23 20:34 Urine Culture - Final Urine,Clean Catch Other data: # Syncope and collapse -Etiology unclear at this time -CT head without any intracranial abnormality -Serial EKGs without any acute ST-T wave changes, serial troponins baseline at 41, 2 hours 41, trending down to 40 at 6 hours, unlikely ACS telemetry monitoring has not been possible as patient keeps removing her telemetry leads.? Frequent reorientation does not appear to help in this regard. -Cardiac echo is showing LVEF 55 to 60% grade 1 diastolic dysfunction from July 2022.? Mild pulmonary hypertension. -Carotid artery ultrasound pending -Check orthostatics -TSH within range at 3.7 # Altered mental status -Does have a history of altered mental status during her prior hospitalizations underlying dementia, delirium, has history of recurrent UTIs. Currently chest x-ray shows possible bibasilar atelectasis. Currently on ceftriaxone and azithromycin empirically.? Urine culture pending -Neurochecks, NIH stroke scale, aspiration precautions # History of dementia Will possibly require placement at nursing facility, case management working on disposition planning. pt/ot Full code Lovenox for DVT prophylaxis Attestations Medical Necessity Statement*: Continued admission Pending carotid artery Doppler, continue IV antibiotics, await culture results Coding Level of Care Code Acute Code for Chg Fwd Diagnoses
[2023-02-07] MEDS: pantoprazole 40 mg SDV IVP ×2 (20:37→22:07)
[2023-02-07] MEDS: cefTRIAXone 1,000 MG in sodium chloride 0.9% (plus) 50 ML 100 MG IV (21:12)
--- NOTE | 2023-02-07 23:47 | PC.NURSE ---
late entry: 2219, placed call to Dr. Jimenez to inform that patient refused all po meds, took telemetry off, pulled out 2nd iv today, refuses to allow sn to restart iv. Dr. Jimenez states just let her rest tonight, if needed, may give 1 mg haldol im.
[2023-02-08] VITALS (14 sets, daily range): BP systolic 96–160; BP diastolic 56–70; PULSE 69–83; RESP 15–17; TEMP 36.3–37.2; O2SAT 91–98
[2023-02-08] MEDS: sucralfate 1 gm Tablet PO ×2 (08:59→20:50)
[2023-02-08] MEDS: carbidopa-levodopa 25-100mg Tablet 1 EACH PO ×4 (08:59→20:29)
[2023-02-08] MEDS: quetiapine 25 mg Tablet PO (08:59)
[2023-02-08] MEDS: azithromycin 500 MG in sodium chloride 0.9% 250 ML 250 MG IV (10:41)
--- NOTE | 2023-02-08 18:16 | PM.PN ---
Subjective Subjective: Patient had an episode of hypotension while working with PT today. While checking orthostatics, patient suddenly had a presyncopal event where she started being very lethargic. She was placed back in bed and came around. Blood pressure after being placed back in back in bed was noted to be at 94/52. Not able to correlate the event to telemetry as patient had earlier taken off her telemetry leads. She has also pulled out several IV lines today. She is able to tell me her name and correct date of today. Appears to be more alert compared to yesterday though still disoriented. Only drinking Ensure today. Does not finish complete meals. Medications: Reviewed: Yes Vitals/I&O/Wt Last Vital Signs Physical Exam Narrative: General: No acute distress, AO x2 HEENT: PERRLA, pupils bilaterally equal and reactive, pallors not present Chest: Normal vesicular breath sounds, no added sounds, equal good air entry bilaterally CVS: S1-S2 regular, no murmurs, no tachycardia, no gallops, no rubs Abdomen: Soft, nontender, no organomegaly, bowel sounds present Neuro: No focal deficits, no facial deformity, AO x3, power 5/5 in all limbs Extremities: Healthy surgical dressing present on the right hip, mild tenderness, soft no erythema. Data 02/07/23 04:56 02/07/23 03:30 Micro: Microbiology 02/06/23 20:34 Urine Culture - Final Urine,Clean Catch A&P Assessment and plan (1) Altered mental status: (2) Status post revision of total replacement of left knee: (3) BMI 30.0-30.9,adult: (4) S/P revision of total knee: (5) Pneumonia: (6) Syncope and collapse: Plan .# Syncope and collapse -Etiology unclear at this time -May be related to orthostatic hypotension as noted to have today while working with PT. -CT head without any acute changes -Serial EKGs without any acute ST-T wave changes, serial troponins baseline at 41, 2 hours 41, trending down to 40 at 6 hours, unlikely ACS telemetry monitoring has not been possible as patient keeps removing her telemetry leads. Frequent reorientation does not appear to help in this regard. -Cardiac echo is showing LVEF 55 to 60% grade 1 diastolic dysfunction from July 2022. Mild pulmonary hypertension. -Carotid artery ultrasound currently not available. -Resume midodrine # Altered mental status -Does have a history of altered mental status during her prior hospitalizations underlying dementia, delirium, has history of recurrent UTIs. Currently chest x-ray shows possible bibasilar atelectasis. Currently on ceftriaxone and azithromycin empirically. Urine culture with no growth thus far -Neurochecks, NIH stroke scale, aspiration precautions # History of dementia suspect currently at baseline mentation Will possibly require placement at nursing facility, case management working on disposition planning. pt/ot Full code Lovenox for DVT prophylaxis Attestations Medical Necessity Statement*: Appropriate disposition planning, orthostatic today, resume midodrine Coding Level of Care Code Acute Code for Chg Fwd Diagnoses Altered mental status R41.82 Status post revision of total replacement of left knee Z96.652 BMI 30.0-30.9,adult Z68.30 S/P revision of total knee Z96.659 Pneumonia J18.9 Syncope and collapse R55
[2023-02-08] MEDS: cefTRIAXone 1,000 MG in sodium chloride 0.9% (plus) 50 ML 100 MG IV (20:33)
[2023-02-08] MEDS: enoxaparin 40 mg/0.4 mL Syringe SUBCUT (20:35)
[2023-02-08] MEDS: pantoprazole 40 mg SDV IVP (21:04)
[2023-02-09] VITALS (7 sets, daily range): BP systolic 85–139; BP diastolic 58–74; PULSE 61–82; RESP 15–17; TEMP 36.3–36.8; O2SAT 92–96
--- NOTE | 2023-02-09 09:00 | PC.NURSE ---
In room to give patient morning medications and assist her with eating her breakfast. Patient is able to tell me her name however then immediately states, I need you to stop giving my grandson drugs because he does not need them. Explaining to patient that I would like to her to eat breakfast and I need to give her morning medications to her. Patient states, I am not eating any of that it is covered in drugs. I am not taking anything from this place. Asked patient if she new that she was in the hospital and she states, Yes but I don't care. I am not taking or eating anything. I tried to explain that the medications I want to give her were her home medications. Patient states, IF I took them at home I don't need to take them here. Patient then shut her eyes and did not respond to any more of my questions. I waited a few minutes and patient opened her eyes and stated, Your still here I thought you would have gone away like I wanted you to Still attempted to give patient Ensure as is it is sealed and explained that because it was sealed she would know there would be nothing in the bottle but Ensure. Patient states, I said I don't want any of it.
--- NOTE | 2023-02-09 11:05 | P.PN_ITS ---
Subjective Subjective: Patient is able to correctly tell me her name age and date of today, however she is disoriented as to where she is. Initially she said she is in the hospital in [place] however thereafter said that she is currently attending a . She asked me to take her down several times for the proceedings. Upon reorientation she did not want to assess her any further questions saying that I know all the answers already and that disposition should be her family's decision. Hemodynamically stable. Afebrile. Medications: Reviewed: Yes Vitals/I&O/Wt Last Vital Signs Temp 97.8 F 02/09/23 08:00 Pulse 72 02/09/23 08:00 Resp 16 02/09/23 08:00 BP 128/68 02/09/23 08:00 Pulse Ox 96 02/09/23 08:00 O2 Del Method Room Air 02/09/23 08:00 02/08/23 02/09/23 02/09/23 22:59 06:59 14:59 Intake Total 260 / 1380 Balance 260 / 1380 Physical Exam Narrative: General: No acute distress, AO x1-2 HEENT: PERRLA, pupils bilaterally equal and reactive, pallors not present Chest: Normal vesicular breath sounds, no added sounds, equal good air entry bilaterally CVS: S1-S2 regular, no murmurs, no tachycardia, no gallops, no rubs Abdomen: Soft, nontender, no organomegaly, bowel sounds present Neuro: No focal deficits, no facial deformity, AO x3, power 5/5 in all limbs Extremities: Well-healing incision over the left knee from recent surgery. Data 02/07/23 04:56 02/07/23 03:30 Micro: Microbiology 02/06/23 20:34 Urine Culture - Final Urine,Clean Catch A&P Assessment and plan (1) Altered mental status: (2) Status post revision of total replacement of left knee: (3) BMI 30.0-30.9,adult: (4) S/P revision of total knee: (5) Pneumonia: (6) Syncope and collapse: Plan # Syncope and collapse -Etiology unclear at this time -Serial EKGs without any acute ST-T wave changes, serial troponins baseline at 41, 2 hours 41, trending down to 40 at 6 hours, unlikely ACS telemetry monitoring has not been possible as patient keeps removing her telemetry leads. Frequent reorientation does not appear to help in this regard. -Cardiac echo is showing LVEF 55 to 60% grade 1 diastolic dysfunction from July 2022. Mild pulmonary hypertension. -Carotid artery ultrasound currently not available. Will reorder I do not see any results currently. -Yesterday patient had orthostatic drop in blood pressure to 96 systolic from 113 sitting position. Reviewed medications. She is not currently on any medications which could potentially contribute to hyper orthostatic hypotension. No telemetry data available from events. -Resume midodrine -Follow blood work -Magnesium, TSH # Altered mental status -Does have a history of altered mental status during her prior hospitalizations underlying dementia, delirium, has history of recurrent UTIs. Suspect that current mental status is probably her baseline. She is correctly able to tell me her age date of however disoriented to place. We will try to confirm with family today. Currently chest x-ray shows possible bibasilar atelectasis. Currently on ceftriaxone and azithromycin empirically. DC azithromycin today. Urine culture with no growth -Neurochecks, NIH stroke scale, aspiration precautions #Developing lower extremity swelling today, IVF discontinued, awaiting lower extremity Doppler performed on February 07. # History of dementia suspect currently at baseline mentation Will possibly require placement at nursing facility, case management working on disposition planning. pt/ot Full code Lovenox for DVT prophylaxis Attestations Medical Necessity Statement*: DC antibiotics today, awaiting lower extremity Doppler results, add midodrine, awaiting disposition Coding Level of Care Code Acute Code for Chg Fwd Diagnoses Altered mental status R41.82 Status post revision of total replacement of left knee Z96.652 BMI 30.0-30.9,adult Z68.30 S/P revision of total knee Z96.659 Pneumonia J18.9 Syncope and collapse R55
--- NOTE | 2023-02-09 11:12 | USR_ITS ---
PROCEDURE INFORMATION: Exam: US Duplex Bilateral Extracranial Arteries, Carotid Arteries Exam date and time: 02/09/2023 12:21 PM Age: 77 years old Clinical indication: Syncope and collapse TECHNIQUE: Imaging protocol: Real-time Duplex ultrasound scan of the bilateral carotid and vertebral arteries combining lowery scale, color Doppler and spectral waveform analysis. Bilateral exam. Exam focused on the carotid arteries. COMPARISON: CT angio headneck* [id number] 12/06/2018 12:25 PM FINDINGS: Right common carotid artery: Unremarkable. Mild amount of plaque. No occlusion or stenosis. Waveforms are normal. Right internal carotid artery: Unremarkable. Mild amount of plaque. No occlusion or stenosis. Waveforms are normal. Right ICA/CCA ratio: Within normal limits. 1.48 Right external carotid artery: No stenosis in the origin. Right vertebral artery: Unremarkable. Antegrade flow. Left common carotid artery: Unremarkable. Mild amount plaque. No occlusion or stenosis. Waveforms are normal. Left internal carotid artery: Unremarkable. Mild amount of plaque. No occlusion or stenosis. Waveforms are normal. Left ICA/CCA ratio: Within normal limits. 1.62 Left external carotid artery: No stenosis in the origin. Left vertebral artery: Unremarkable. Antegrade flow. US/CV carotid duplex BI* [id number] IMPRESSION: No carotid arterial stenosis. REFERENCES: SRU CRITERIA. The degree of internal carotid artery stenosis is based on criteria defined by the Society of Radiologists in Ultrasound (SRU). Normal is no stenosis. Mild is less than 50% stenosis. Moderate is 50-69% stenosis. Severe is greater than 69% stenosis to near occlusion. Near occlusion is a markedly narrowed lumen. Total occlusion is no detectable patent lumen.
--- NOTE | 2023-02-09 12:51 | PC.SOCIAL ---
Imm update Imm updated with patient at bedside. copy of page 2 provided. copy in chart initialed, dated and timed.
[2023-02-09] MEDS: midodrine 5 mg TABLET PO ×2 (13:53→20:54)
[2023-02-09] MEDS: carbidopa-levodopa 25-100mg Tablet 1 EACH PO ×2 (17:05→20:53)
[2023-02-09 20:47] LABS: Basophils # 0.1 10^3/uL (0.0-0.1); Basophils % 2.1 %; Eosinophils # 0.4 10^3/uL (0.0-0.8); Eosinophils % 6.9 %; Hematocrit 29.6 % (37.0-47.0); Lymphocytes # 1.7 10^3/uL (0.8-4.8); Lymphocytes % 33.4 %; Mean Corpuscular HGB Conc 30.4 g/dL (30.0-36.0); Mean Corpuscular Hemoglobin 29.4 pg (28.0-34.0); Mean Corpuscular Volume 96.7 fl (81-99); Mean Platelet Volume 10.7 fL (7.4-10.4); Monocytes # 0.4 10^3/uL (0.2-0.9); Monocytes % 7.9 %; Neutrophils # 2.56 10^3/uL (1.8-7.7); Neutrophils % 49.5 %; Nucleated Red Blood Cells % 0 %; Platelet Count 243 10^3/cmm (130-400); Red Blood Count 3.06 10^6/uL (4.1-5.3); Red Cell Distribution Width 15.2 % (12.1-15.1); White Blood Count 5.2 10^3/uL (4.0-10.0)
[2023-02-09] MEDS: enoxaparin 40 mg/0.4 mL Syringe SUBCUT (20:53)
[2023-02-09] MEDS: sucralfate 1 gm Tablet PO (20:53)
[2023-02-09] MEDS: cefTRIAXone 1,000 MG in sodium chloride 0.9% (plus) 50 ML 100 MG IV (20:53)
[2023-02-09] MEDS: pantoprazole 40 mg SDV IVP (20:54)
[2023-02-09 21:08] LABS: Alanine Aminotransferase < 5 U/L (0-33); Albumin Level 2.9 g/dL (3.5-5.2); Alkaline Phosphatase 80 U/L (35-105); Anion Gap 11.4 (5-19); Aspartate Amino Transferase 14 U/L (0-32); Blood Urea Nitrogen 10 mg/dL (8-23); Calcium 9.7 mg/dL (8.5-10.5); Carbon Dioxide 26 mmol/L (22-29); Chloride 107 mmol/L (98-107); Creatinine Clr Calc Pharmacy 71.0311; Globulin 2.7 g/dL (1.3-4.6); Glucose 101 mg/dL (65-115); Osmolality Calculated 291 mOsm/kg (285-295); Potassium 3.4 mmol/L (3.5-5.1); Sodium 141 mmol/L (136-145); Total Bilirubin 0.2 mg/dL (0.15-1.2); Total Protein 5.6 g/dL (6.6-8.7)
[2023-02-10] VITALS (9 sets, daily range): BP systolic 72–150; BP diastolic 42–82; PULSE 58–76; RESP 15–18; TEMP 36.1–36.7; O2SAT 92–96
[2023-02-10] MEDS: sucralfate 1 gm Tablet PO ×2 (09:45→20:26)
[2023-02-10] MEDS: midodrine 5 mg TABLET PO (09:45)
[2023-02-10] MEDS: carbidopa-levodopa 25-100mg Tablet 1 EACH PO ×3 (09:45→20:25)
--- NOTE | 2023-02-10 15:36 | PM.PN ---
Subjective Subjective: Patient was seen and examined this morning, continued to have significant orthostatic hypotension. Currently she is able to hold a good conversation. Medications: Reviewed: Yes Medication Review Details: Generic Name Dose Route Start Last Admin Trade Name Chase PRN Reason Stop Dose Admin Carbidopa/Levodopa 1 each 02/07/23 09:00 02/10/23 15:25 Carbidopa-Levodo pa 25-100mg Tablet PO Not Given QID RAY Enoxaparin Sodium 40 mg 02/06/23 21:30 02/09/23 20:53 Enoxaparin 40 Mg /0.4 Ml Syringe SUBCUT 40 mg Q24H RAY Administration Ceftriaxone Sodium 1,000 mg/ 50 mls @ 100 mls/ hr 02/06/23 21:30 02/09/23 21:23 Sodium Chloride IV Infused Q24H RAY Infusion Protocol Pantoprazole Sodiu m 40 mg 02/06/23 21:30 02/09/23 20:54 Pantoprazole 40 Mg Sdv IVP 40 mg Q24H RAY Administration Sucralfate 1 gm 02/06/23 21:45 02/10/23 09:45 Sucralfate 1 Gm Tablet PO 1 gm Q12H RAY Administration Vitals/I&O/Wt Last Vital Signs Temp 97.7 F 02/10/23 12:00 Pulse 72 02/10/23 12:00 Resp 15 02/10/23 12:00 BP 72/42 02/10/23 12:00 Pulse Ox 96 02/10/23 12:00 O2 Del Method Room Air 02/10/23 12:00 02/10/23 02/10/23 02/10/23 06:59 14:59 22:59 Intake Total 360 / 360 Balance 360 / 360 Physical Exam HENMT: COMMON NORMALS: normocephalic and atraumatic HEAD & SCALP: normocephalic and atraumatic Resp: COMMON NORMALS: clear to auscultation bilaterally AUSCULTATION: clear to auscultation bilaterally Cardio: COMMON NORMALS: regular rate, regular rhythm, S1 normal heart sound present, S2 normal heart sound present, No gallops present (Cardio), No murmurs present (Cardio), No rub (Cardio) and Peripheral pulses 2+ throughout RATE: regular rate RHYTHM: regular rhythm HEART SOUNDS: S1 normal heart sound present and S2 normal heart sound present PERIPHERAL PULSES: Peripheral pulses 2+ throughout GI: COMMON NORMALS: Normal to inspection, nondistended, normoactive bowel sounds present, Soft to palpation, non-tender, No hepatosplenomegaly present and no masses AUSCULTATION: Yes normoactive bowel sounds PALPATION: Yes Soft to palpation and Yes No hepatosplenomegaly present RECTAL EXAM: deferred Extremity: COMMON NORMALS: no clubbing, cyanosis or edema and no pedal edema Data 02/08/23 20:32 02/08/23 20:32 A&P Assessment and plan (1) Altered mental status: (2) Status post revision of total replacement of left knee: (3) BMI 30.0-30.9,adult: (4) S/P revision of total knee: (5) Pneumonia: (6) Syncope and collapse: Plan 77 year old female with a past medical history of dementia, Parkinson disease, recurrent UTIs recently admitted to [facility] for dislocated left knee, status post revision, also had issues with recurrent UTI, anemia, this time she was admitted for the management of, syncope with collapse as well as altered mental status. Assessment: # Syncope and collapse: Likely secondary to orthostatic hypotension. -CT head without contrast no acute intracranial pathology -Carotid Doppler: No carotid artery stenosis -2D echo: Done in jul 2022: LVEF 55 to 60% grade 1 diastolic dysfunction from July 2022. Mild pulmonary hypertension. -Serial EKGs without any acute ST-T wave changes, serial troponins baseline at 41, 2 hours 41, trending down to 40 at 6 hours, unlikely ACS telemetry monitoring has not been possible as patient keeps removing her telemetry leads. Frequent reorientation does not appear to help in this regard. She was initially on midodrine 5 mg p.o. 3 times daily, dose has been increased to 10 mg p.o. 3 times daily Possibly will use compression stockings, and other conservative management. # Altered mental status -Does have a history of altered mental status during her prior hospitalizations underlying dementia, delirium, has history of recurrent UTIs. Currently chest x-ray shows possible bibasilar atelectasis. Currently on ceftriaxone and azithromycin empirically. Urine culture with no growth thus far -Neurochecks, NIH stroke scale, aspiration precautions # History of dementia suspect currently at baseline mentation Patient has been accepted at senior care, will plan to discharge her once the orthostatic vitals are more stable. pt/ot Full code Lovenox for DVT prophylaxis Attestations Medical Necessity Statement*: Needs to be in hospital for management of her significant orthostatic hypotension, syncope and collapse. Coding Level of Care Code 09768 Diagnoses Altered mental status R41.82 Status post revision of total replacement of left knee Z96.652 BMI 30.0-30.9,adult Z68.30 S/P revision of total knee Z96.659 Pneumonia J18.9 Syncope and collapse R55
[2023-02-10] MEDS: midodrine 5 mg TABLET 10 MG PO ×2 (15:58→20:25)
[2023-02-10] MEDS: quetiapine 25 mg Tablet PO (20:25)
[2023-02-10] MEDS: cefTRIAXone 1,000 MG in sodium chloride 0.9% (plus) 50 ML 100 MG IV (21:23)
[2023-02-10] MEDS: pantoprazole 40 mg SDV IVP (21:23)
[2023-02-10] MEDS: enoxaparin 40 mg/0.4 mL Syringe SUBCUT (21:24)
[2023-02-11] VITALS (7 sets, daily range): BP systolic 95–138; BP diastolic 61–73; PULSE 63–68; RESP 15–16; TEMP 36.4–36.6; O2SAT 90–96
[2023-02-11] MEDS: quetiapine 25 mg Tablet PO (08:54)
[2023-02-11] MEDS: midodrine 5 mg TABLET 10 MG PO (08:54)
[2023-02-11] MEDS: sucralfate 1 gm Tablet PO (08:54)
[2023-02-11] MEDS: carbidopa-levodopa 25-100mg Tablet 1 EACH PO (08:54)
--- NOTE | 2023-02-11 10:14 | PM.DCS ---
Discharge Providers Date of Admission: 02/06/23 19:39 Date of Discharge: February 11, 2023 Attending Provider at Admission: Domo Jimenez MD Attending Provider at Discharge: Amado Menon MD Primary Care Provider: Neli De La Torre MD Diagnoses at Discharge Discharge Diagnosis (1) Altered mental status: Status: Acute (2) Status post revision of total replacement of left knee: Status: Acute (3) BMI 30.0-30.9,adult: Status: Acute (4) S/P revision of total knee: Status: Acute (5) Pneumonia: Status: Acute (6) Syncope and collapse: Status: Acute Reason for Visit Reason for Visit: LETHARGY/ SYNCOPE Hospital Course Hospital Course 77 year old female with a past medical history of dementia, Parkinson disease, recurrent UTIs recently admitted to [facility] for dislocated left knee, status post revision, also had issues with recurrent UTI, anemia, this time she was admitted for the management of, syncope with collapse as well as altered mental status.Syncope and collapse: Likely secondary to orthostatic hypotension. CT head without contrast no acute intracranial pathology,Carotid Doppler: No carotid artery stenosis 2D echo: Done in jul 2022:? LVEF 55 to 60% grade 1 diastolic dysfunction from July 2022.? Mild pulmonary hypertension.Serial EKGs without any acute ST-T wave changes, serial troponins baseline at 41, 2 hours 41, trending down to 40 at 6 hours, unlikely ACS telemetry monitoring has not been possible as patient keeps removing her telemetry leads.? Frequent reorientation does not appear to help in this regard. She was initially on midodrine 5 mg p.o. 3 times daily, dose has been increased to 10 mg p.o. 3 times daily, patient has been educated on optimal conservative management of orthostatic hypotension. For her altered mental status: Does have a history of altered mental status during her prior hospitalizations underlying dementia, delirium, has history of recurrent UTIs.chest x-ray shows possible bibasilar atelectasis.Urine culture had no growth, empirically she was kept on ceftriaxone and azithromycin during the hospital stay, at the time of discharge she was at her baseline mentation, she was able to hold simple conversations. No antibiotic was continued on discharge.Overall patient responded well to above medical management she was discharged to care home.During the hospital stay PT was on board. Physical Exam HENMT: COMMON NORMALS: normocephalic and atraumatic HEAD & SCALP: normocephalic and atraumatic Resp: COMMON NORMALS: clear to auscultation bilaterally AUSCULTATION: clear to auscultation bilaterally Cardio: COMMON NORMALS: regular rate, regular rhythm, S1 normal heart sound present, S2 normal heart sound present, No gallops present (Cardio), No murmurs present (Cardio), No rub (Cardio) and Peripheral pulses 2+ throughout RATE: regular rate RHYTHM: regular rhythm HEART SOUNDS: S1 normal heart sound present and S2 normal heart sound present PERIPHERAL PULSES: Peripheral pulses 2+ throughout GI: COMMON NORMALS: Normal to inspection, nondistended, normoactive bowel sounds present, Soft to palpation, non-tender, No hepatosplenomegaly present and no masses AUSCULTATION: Yes normoactive bowel sounds PALPATION: Yes Soft to palpation and Yes No hepatosplenomegaly present RECTAL EXAM: deferred Extremity: COMMON NORMALS: no clubbing, cyanosis or edema and no pedal edema Discharge Data Studies Completed and Pending Completed Studies During Hospitalization Category Date Time Status CT head wo con* [id number] Stat Cat Scan 02/06/23 17:45 Completed XR chest 1V portable [id number] Stat Exams 02/06/23 17:43 Completed CV carotid duplex BI* [id number] Routine Ultrasound 02/09/23 11:12 [place] [id number] Routine Ultrasound 02/07/23 10:42 Completed Pending at discharge Category Date Time Status COVID [SARS Covid-2 Antigen] Routine Lab 02/11/23 09:30 Received Sputum Culture and Gram Stain Stat Lab 02/06/23 21:29 Uncollected Radiology Impressions Chest X-Ray 02/06/23 17:43 IMPRESSION: Hypoinflation with bibasilar atelectasis or infiltrates. Correlate for pulmonary infection. Head CT 02/06/23 17:45 IMPRESSION: No acute intracranial abnormality. Carotid Doppler Study 02/09/23 11:12 IMPRESSION: No carotid arterial stenosis. REFERENCES: SRU CRITERIA. The degree of internal carotid artery stenosis is based on criteria defined by the Society of Radiologists in Ultrasound (SRU). Normal is no stenosis. Mild is less than 50% stenosis. Moderate is 50-69% stenosis. Severe is greater than 69% stenosis to near occlusion. Near occlusion is a markedly narrowed lumen. Total occlusion is no detectable patent lumen. Laboratory Results WBC 5.2 10^3/uL (4.0-10.0) 02/08/23 20: RBC 3.06 10^6/uL (4.1-5.3) L 02/08/23 20: Hgb 9.0 g/dL (11.5-15.3) L 02/08/23 20: Hct 29.6 % (37.0-47.0) L 02/08/23: MCV 96.7 fl (81-99) 02/08/23: MCH 29.4 pg (28.0-34.0) 02/08/23: MCHC 30.4 g/dL (30.0-36.0) 02/08/23: RDW 15.2 % (12.1-15.1) H 02/08/23: Plt Count 243 10^3/cmm (130-400) 02/08/23: MPV 10.7 fL (7.4-10.4) H 02/08/23 20: Neut % (Auto) 49.5 % 02/08/23: Lymph % (Auto) 33.4 % 02/08/23: [place] % (Auto) 7.9 % 02/08/23: Eos % (Auto) 6.9 % 02/08/23: Baso % (Auto) 2.1 % 02/08/23: Neut # (Auto) 2.56 10^3/uL (1.8-7.7) 02/08/23: Lymph # (Auto) 1.7 10^3/uL (0.8-4.8) 02/08/23 20: [place] # (Auto) 0.4 10^3/uL (0.2-0.9) 02/08/23: Eos # (Auto) 0.4 10^3/uL (0.0-0.8) 02/08/23 20: Baso # (Auto) 0.1 10^3/uL (0.0-0.1) 02/08/23: Nucleated RBC % (auto) 0 % 02/08/23:32 Nucleated RBCs # 0.0 /100WBC 02/08/23 20:32 Sodium 141 mmol/L (136-145) 02/08/23 20:32 Potassium 3.4 mmol/L (3.5-5.1) L 02/08/23 20:32 Chloride 107 mmol/L (98-107) 02/08/23 20:32 Carbon Dioxide 26 mmol/L (22-29) 02/08/23 20:32 Anion Gap 11.4 (5-19) 02/08/23 20:32 BUN 10 mg/dL (8-23) 02/08/23 20:32 Creatinine 0.6 mg/dL (0.5-0.9) 02/08/23 20:32 GFR Calculation Not Reportable 02/08/23 20:32 Glucose 101 mg/dL (65-115) 02/08/23 20:32 Calculated Osmolality 291 mOsm/kg (285-295) 02/08/23 20:32 Lactic Acid 1.1 mmol/L (0.5-2.2) 02/07/23 03:30 Calcium 9.7 mg/dL (8.5-10.5) 02/08/23 20:32 Phosphorus 2.4 mg/dL (2.5-4.5) L 02/07/23 03:30 Magnesium 2.0 mg/dL (1.7-2.3) 02/07/23 03:30 Total Bilirubin 0.2 mg/dL (0.15-1.2) 02/08/23 20:32 AST 14 U/L (0-32) 02/08/23 20:32 ALT < 5 U/L (0-33) 02/08/23 20:32 Alkaline Phosphatase 80 U/L (35-105) 02/08/23 20:32 Creatine Kinase 28 U/L (26-192) 02/06/23 18:32 Troponin T Baseline 41 ng/L (0-10) H 02/07/23 03:30 Troponin T 120 Minute 41.08 ng/L (0-10) H 02/06/23 04:56 Delta Troponin T 0.08 ABS# (0-10) 02/06/23 04:56 Troponin T Hi Sens 6Hr 40.36 ng/L (0-10) H 02/07/23 09:13 Troponin T Hi Sens 6Hr Delta -0.64 ng/L (0-12) L 02/07/23 09:13 C-Reactive Protein 6.4 mg/L (0.0-4.9) H 02/07/23 03:30 NT-Pro-B Natriuret Pep 614 pg/mL (0-450) H 02/07/23 03:30 Total Protein 5.6 g/dL (6.6-8.7) L 02/08/23 20:32 Albumin 2.9 g/dL (3.5-5.2) L 02/08/23 20:32 Globulin 2.7 g/dL (1.3-4.6) 02/08/23 20:32 Procalcitonin 0.08 ng/mL (0-0.5) 02/07/23 03:30 TSH 3.73 uIU/mL (0.27-4.20) 02/07/23 03:30 Urine Color Yellow (Yellow) 02/06/23 20:34 Urine Appearance Sl hazy (CLEAR) A 02/06/23 20:34 Urine pH 5 (5-7) 02/06/23 20:34 Ur Specific [place] 1.025 (1.005-1.030) 02/06/23 20:34 Urine Protein Neg (Negative) 02/06/23 20:34 Urine Glucose (UA) Norm (Normal) 02/06/23 20:34 Urine Ketones Negative (Negative) 02/06/23 20:34 Urine Blood 2+ (Negative) H 02/06/23 20:34 Urine Nitrate Negative (Negative) 02/06/23 20:34 Urine Bilirubin Neg (Negative) 02/06/23 20:34 Urine Urobilinogen 1 mg/dL (Negative) H 02/06/23 20:34 Ur Leukocyte Esterase 2+ (Negative) H 02/06/23 20:34 Urine RBC 5-10 /hpf (0-2) H 02/06/23 20:34 Urine WBC 25-40 /hpf (0-5) H 02/06/23 20:34 Ur Squamous Epith Cells 5-10 /hpf (0-5) H 02/06/23 20:34 Amorphous Sediment Not Reportable 02/06/23 20:34 Urine Bacteria 3+ /hpf (NONE) H 02/06/23 20:34 Nasal Influ A H1 2009 PCR Not detected (NOT DETECT) 02/06/23 22:48 Adenovirus (PCR) Not detected (NOT DETECT) 02/06/23 22:48 C. pneumoniae DNA (PCR) Not detected (NOT DETECT) 02/06/23 22:48 Coronavirus 229E (PCR) Not detected (NOT DETECT) 02/06/23 22:48 Human Metapneumovir PCR Not detected (NOT DETECT) 02/06/23 22:48 Influenza A (H1) PCR Not detected (NOT DETECT) 02/06/23 22:48 Influenza A (H3) PCR Not detected (NOT DETECT) 02/06/23 22:48 Influenza Type A (PCR) Not detected (NOT DETECT) 02/06/23 22:48 Influenza Type B (PCR) Not detected (NOT DETECT) 02/06/23 22:48 M. pneumoniae (PCR) Not detected (NOT DETECT) 02/06/23 22:48 Parainfluenza 1 (PCR) Not detected (NOT DETECT) 02/06/23 22:48 Parainfluenza 2 (PCR) Not detected (NOT DETECT) 02/06/23 22:48 Parainfluenza 3 (PCR) Not detected (NOT DETECT) 02/06/23 22:48 Parainfluenza 4 (PCR) Not detected (NOT DETECT) 02/06/23 22:48 RSV Type A (PCR) Not detected (NOT DETECT) 02/06/23 22:48 RSV Type B (PCR) Not detected (NOT DETECT) 02/06/23 22:48 Entero/Rhino (PCR) Not detected (NOT DETECT) 02/06/23 22:48 SARS-CoV-2 (PCR) Not detected (NOT DETECT) 02/06/23 22:48 Vitals Last Vital Signs Temp 97.6 F 02/11/23 07:49 Pulse 63 02/11/23 07:49 Resp 15 02/11/23 07:49 BP 132/73 02/11/23 07:49 Pulse Ox 90 02/11/23 07:49 O2 Del Method Room Air 02/11/23 07:49 Discharge Plan Discharge Patient Disposition: Xfer SNF Condition: Stable Prescriptions: Continued quetiapine [Seroquel] 25 mg tablet 25 mg PO DAILY 30 Days Qty: 30 3RF Rx Instructions: Take one tablet at bedtime. carbidopa-levodopa 25-100 mg tablet 1 tab PO QID sucralfate 1 gram Tablet 1 g PO Q12H 30 Days Qty: 60 0RF pantoprazole 40 mg Tablet,Delayed Release (Dr/Ec) 40 mg PO BID 30 Days Qty: 60 0RF Changed midodrine 5 mg tablet 10 mg PO TID 30 Days Qty: 180 0RF Discharge Orders: Discharge Order (Routine); Ordered 02/11/23 Ordered By: Amado Menon Referrals: [facility] [place] [Outside] Neli De La Torre MD [Primary Care Provider] - 02/14/23 2:40 pm Kartik Garcia MD [Physician] - 02/25/23 11:00 am Patient Instructions: Midodrine (By mouth), Hypotension (GEN), Opioid Safety Discharge Attestations Time Spent in Discharge Care*: less than 30 min Quality Metrics Clinical Quality Measures [ No reported AMI, CVA or VTE this stay] Coding Level of Care Code Acute Code for Chg Fwd Diagnoses Altered mental status R41.82 Status post revision of total replacement of left knee Z96.652 BMI 30.0-30.9,adult Z68.30 S/P revision of total knee Z96.659 Pneumonia J18.9 Syncope and collapse R55
[2023-02-11 10:21] LABS: SARS Covid-2 Antigen negative (Negative)
--- NOTE | 2023-02-11 10:34 | PC.SOCIAL ---
IMM Update pg 2 of IMM updated and reviewed w/ patients Gene over the phone. Copy left @ bedside and copy in chart dated, and initialed.
== END 2023-02-11 13:45 | disposition skilled nursing facility (03) | DRG 312 ==
LOC: ER 18:10 → MEDSURG 20:19
PROVIDERS: Family Medicine; Student in an Organized Health Care Education/Training Program; Admitting Provider Family Medicine; Emergency Provider Emergency Medicine; PCP Specialist; Visit Provider Internal Medicine
DX: I95.1 Orthostatic hypotension (principal); J18.9 Pneumonia, unspecified organism; N17.9 Acute kidney failure, unspecified; G20 Parkinson's disease; F02.80 Dementia in other diseases classified elsewhere, unspecified severity, without behavioral disturbance, psychotic disturbance, mood disturbance, and anxiety; Z87.440 Personal history of urinary (tract) infections; Z96.653 Presence of artificial knee joint, bilateral; Z96.82 Presence of neurostimulator; D64.9 Anemia, unspecified; I80.01 Phlebitis and thrombophlebitis of superficial vessels of right lower extremity
CPT/HCPCS: 36415; 70450; 71045; 80048; 80053; 81001; 82550; 83605; 83735; 83880; 84100; 84145; 84443; 84484; 85025; 86140; 87086; 87426; 87486; 87581; 87633; 93005; 93880; 93970; 96360; 96372; 97162; 97166; 97530; 97535; 99285; C9113; J0456; J0696; J1650; J7030; J7050

== ENCOUNTER → 2023-02-14 14:31 | Outpatient (BNVA) | payer OTHER, MEDICARE, SELFPAY | PROVIDERS: Visit Provider Specialist | DX: G20 Parkinson's disease (principal); F02.82 Dementia in other diseases classified elsewhere, unspecified severity, with psychotic disturbance; Z96.82 Presence of neurostimulator; Z45.42 Encounter for adjustment and management of neurostimulator; G93.40 Encephalopathy, unspecified | CPT/HCPCS: 95983; 99215 ==

== ENCOUNTER 2023-07-18 18:43 | Emergency (ER) | payer MEDICARE, SELFPAY ==
[2023-07-18 18:45] VITALS: BP 139/56; PULSE 71; RESP 18; TEMP 36.6; O2SAT 100; BMI 29.0
--- NOTE | 2023-07-18 18:46 | XRR_ITS ---
PROCEDURE INFORMATION: Exam: XR Chest Exam date and time: 07/18/2023 7:05 PM Age: 78 years old Clinical indication: Dyspnea and shortness of breath; Prior surgery; Surgery date: 6+ months; Surgery type: Pacemaker; Additional info: SOB; Anxiety; Dementia TECHNIQUE: Imaging protocol: Radiologic exam of the chest. Views: 1 view. COMPARISON: CR (CHEST, ) 02/06/2023 5:58 PM FINDINGS: Tubes, catheters and devices: Neurostimulator device in place Lungs: Unremarkable. No consolidation. Pleural spaces: Unremarkable. No pleural effusion. No pneumothorax. Heart/Mediastinum: Unremarkable. No cardiomegaly. Bones/joints: Unremarkable. Postop shoulder arthroplasty surgical change. XR/XR chest 1V portable [id number] IMPRESSION: No acute findings.
--- NOTE | 2023-07-18 18:46 | ECG_ITS ---
[facility] Test Date: 2023-07-18 Pat Name: Leonor Snyder Department: Room: Gender: Female Buffer Nickel: : 1945 Requested By: Miriam Santos Order Number: [id number] Bob MD: Denys Gomez M.D. Measurements Intervals [place] Rate: 68 P: 98 NE: 184 QRS: 18 QRSD: 166 T: 155 QT: 437 QTc: 466 Interpretive Statements SINUS RHYTHM LEFT BUNDLE BRANCH BLOCK [120+ ms QRS DURATION, 80+ ms Q/S IN V1/V2, 85+ ms R IN I/aVL/V5/V6] Compared to ECG 02/06/2023 21:50:03 No significant changes Electronically Signed On 07-19-2023 9:38:23 CDT by Denys Gomez M.D. [email or web address]
--- NOTE | 2023-07-18 18:48 | ED_ITS ---
HPI - General Adult General: Chief complaint: Anxiety Stated complaint: sob, dementia, anxiety Time Seen by Provider: 07/18/23 18:44 Source: patient and EMS Mode of arrival: EMS Limitations: altered mental status History of Present Illness: 78-year-old female who has a history of dementia per EMS she gets agitated and anxious at times she is extremely anxious and called EMS EMS states they arrived she was very anxious states she had short of breath she is since calm down she has no complaints at this time. She does have severe dementia where she is only alert to herself and she is at her baseline. Associated symptoms: Reports dyspnea; Deny chest pain, headache(s), nausea, rash or vomiting Review of Systems Const: Denies: fever(s) or chills ENMT: Denies: throat pain or dental pain Card: Denies: chest pain Resp: Reports: dyspnea GI: Denies: abdominal pain, nausea, vomiting or diarrhea : Denies: dysuria Musc: Denies: neck pain or back pain Skin/Breast: Denies: rash Neuro: Denies: headache(s) Psych: Reports: anxiety PFSH ED PFSH: Medical History Altered mental status BMI 30.0-30.9,adult Parkinson disease Pneumonia Syncope and collapse Surgical History History of arthroplasty of both knees S/P revision of total knee Status post deep brain stimulator placement Status post revision of total replacement of left knee Family History Other CAD (coronary artery disease) Cancer Diabetes Stroke Denies family history of Hypertension Social History Smoking and tobacco status: never smoked Alcohol intake: never Substance/Drug Use: never Physical Exam Const: COMMON NORMALS: no acute distress, healthy appearing and alert; negative for patient oriented x3 GENERAL APPEARANCE: anxious ORIENTATION/CONSCIOUSNESS: Yes oriented to person; not oriented to place and not oriented to time HENMT: COMMON NORMALS: normocephalic and atraumatic HEAD & SCALP: normocephalic and atraumatic Eye: COMMON NORMALS: Equal, round and reactive pupils present and EOMs intact bilaterally PUPIL: Yes Equal, round and reactive pupils present Neck/C-Spine: COMMON NORMALS: full ROM and supple Chest: COMMONS NORMALS: normal inspection of the chest and normal palpation of entire chest wall Resp: COMMON NORMALS: normal respiratory effort, No retractions, No use of accessory muscles and clear to auscultation bilaterally AUSCULTATION: clear to auscultation bilaterally Cardio: COMMON NORMALS: regular rate, regular rhythm and No murmurs present (Cardio) RATE: regular rate RHYTHM: regular rhythm GI: COMMON NORMALS: Normal to inspection, nondistended, normoactive bowel soun ds present, Soft to palpation, non-tender and no masses PALPATION: Yes Soft to palpation Extremity: COMMON NORMALS: normal to inspection and full ROM Neuro: COMMON NORMALS: moves all extremities and no focal motor deficits; negative for patient oriented x3 SENSORIUM/ORIENTATION: Yes alert, Yes oriented to person, No oriented to place and No oriented to time Psych: COMMON NORMALS: mental status grossly normal, Normal thought process present and cooperative THOUGHT PROCESS: Normal thought process present Skin: COMMON NORMALS: no rashes or lesions noted and no wounds GENERAL SKIN EXAM: no rashes or lesions noted Course Vital Signs: Vital signs: Vital Signs Temperature 97.9 F 07/18/23 18:45 Pulse Rate 62 07/18/23 20:22 Respiratory Rate 18 07/18/23 20:22 Blood Pressure 148/56 07/18/23 19:09 Pulse Oximetry 92 07/18/23 20:22 Oxygen Delivery Me thod Room Air 07/18/23 19:09 [facility] - General Adult Medical Decision Making Patient presents here with an anxiety attack she has been well-appearing here is calm her states she has been out of her Seroquel and he believes that is causing his worsening moods especially at night we will refill her prescription she is stable for discharge at this time. Medical Records I reviewed the patient's medical records. Lab Data I reviewed the patient's lab results. 07/18/23 18:54 07/18/23 18:54 Radiology Impressions Chest X-Ray 07/18/23 18:46 IMPRESSION: No acute findings. Laboratory Results WBC 5.81 10^3/uL (3.29-11.43) 07/18/23 18:54 RBC 4.16 10^6/uL (3.85-5.65) 07/18/23 18:54 Hgb 12.90 g/dL (11.27-16.99) 07/18/23 18:54 Hct 38.1 % (36-47) 07/18/23 18:54 MCV 91.6 fl (85-98) 07/18/23 18:54 MCH 31.0 pg (27-33) 07/18/23 18:54 MCHC 33.9 g/dL (30-55) 07/18/23 18:54 RDW 15.7 % (12.1-15.1) H 07/18/23 18:54 Plt Count 200 10^3/cmm (157-399) 07/18/23 18:54 MPV 11.8 fL (7.4-10.4) H 07/18/23 18:54 Neut % (Auto) 47.7 % 07/18/23 18:54 Lymph % (Auto) 40.4 % 07/18/23 18:54 [place] % (Auto) 6.5 % 07/18/23 18:54 Eos % (Auto) 4.0 % 07/18/23 18:54 Baso % (Auto) 1.2 % 07/18/23 18:54 Neut # (Auto) 2.77 10^3/uL (1.8-7.7) 07/18/23 18:54 Lymph # (Auto) 2.4 10^3/uL (0.8-4.8) 07/18/23 18:54 [place] # (Auto) 0.4 10^3/uL (0.2-0.9) 07/18/23 18:54 Eos # (Auto) 0.2 10^3/uL (0.0-0.8) 07/18/23 18:54 Baso # (Auto) 0.1 10^3/uL (0.0-0.1) 07/18/23 18:54 Nucleated RBC % (auto) 0 % 07/18/23 18:54 Nucleated RBCs # 0.0 /100WBC 07/18/23 18:54 Sodium 143 mmol/L (136-145) 07/18/23 18:54 Potassium 3.6 mmol/L (3.5-5.1) 07/18/23 18:54 Chloride 108 mmol/L (98-107) H 07/18/23 18:54 Carbon Dioxide 21 mmol/L (22-29) L 07/18/23 18:54 Anion Gap 17.6 (5-19) 07/18/23 18:54 BUN 32 mg/dL (8-23) H 07/18/23 18:54 Creatinine 1.2 mg/dL (0.5-0.9) H 07/18/23 18:54 GFR Calculation Not Reportable 07/18/23 18:54 Glucose 95 mg/dL (65-115) 07/18/23 18:54 Calculated Osmolality 303 mOsm/kg (285-295) H 07/18/23 18:54 Calcium 10.3 mg/dL (8.5-10.5) 07/18/23 18:54 Total Bilirubin 0.4 mg/dL (0.15-1.2) 07/18/23 18:54 AST 21 U/L (0-32) 07/18/23 18:54 ALT < 5 U/L (0-33) 07/18/23 18:54 Alkaline Phosphatase 85 U/L (35-105) 07/18/23 18:54 NT-Pro-B Natriuret Pep 2439 pg/mL (0-450) H 07/18/23 18:54 Total Protein 7.0 g/dL (6.6-8.7) 07/18/23 18:54 Albumin 4.1 g/dL (3.5-5.2) 07/18/23 18:54 Globulin 2.9 g/dL (1.3-4.6) 07/18/23 18:54 All radiology interpretation(s) finalized by discharge Discharge Plan Discharge Patient Disposition: Home Clinical Impression: Acute anxiety Condition: Stable Prescriptions: Continued Seroquel 25 mg tablet 25 mg PO DAILY 30 Days Qty: 30 3RF Rx Instructions: Take one tablet at bedtime. No Action magnesium hydroxide [Milk of Magnesia] 400 mg/5 mL suspension 5 ml PO DAILY PRN bisacodyl [Dulcolax (bisacodyl)] 10 mg suppository 10 mg NE DAILY PRN tramadol 50 mg tablet 50 mg PO Q6H PRN carbidopa-levodopa 25-100 mg tablet See Rx Instructions .ROUTE .COMPLEX Qty: 120 0RF Dose Instruction: Take 1 tablet by mouth 4 times daily Rx Instructions: Take 1 tablet by mouth 4 times daily midodrine 5 mg tablet 10 mg PO TID 30 Days Qty: 180 0RF Discharge Orders: Discharge ED (Routine); Ordered 07/18/23 Ordered By: Miriam Santos Referrals: Terri Jha [facility] ADVISER [Primary Care Provider] - 1-3 days Discharge Diet: Advance as tolerated Discharge Activity: Resume usual activity Patient Instructions: Anxiety (ED) Coding Level of Care Code ED Check Embosser for Ender Cee
[2023-07-18 19:00] LABS: Basophils # 0.1 10^3/uL (0.0-0.1); Basophils % 1.2 %; Eosinophils # 0.2 10^3/uL (0.0-0.8); Hematocrit 38.1 % (36-47); Lymphocytes # 2.4 10^3/uL (0.8-4.8); Lymphocytes % 40.4 %; Mean Corpuscular HGB Conc 33.9 g/dL (30-55); Mean Corpuscular Volume 91.6 fl (85-98); Mean Platelet Volume 11.8 fL (7.4-10.4); Monocytes # 0.4 10^3/uL (0.2-0.9); Monocytes % 6.5 %; Neutrophils # 2.77 10^3/uL (1.8-7.7); Neutrophils % 47.7 %; Nucleated Red Blood Cells % 0 %; Platelet Count 200 10^3/cmm (157-399); Red Blood Count 4.16 10^6/uL (3.85-5.65); Red Cell Distribution Width 15.7 % (12.1-15.1); White Blood Count 5.81 10^3/uL (3.29-11.43)
[2023-07-18] MEDS: LORazepam 0.5 mg Tablet PO (19:08)
[2023-07-18 19:09] VITALS: BP 148/56; PULSE 59; RESP 16; O2SAT 100
[2023-07-18 19:29] LABS: Alanine Aminotransferase < 5 U/L (0-33); Albumin Level 4.1 g/dL (3.5-5.2); Alkaline Phosphatase 85 U/L (35-105); Anion Gap 17.6 (5-19); Aspartate Amino Transferase 21 U/L (0-32); Blood Urea Nitrogen 32 mg/dL (8-23); Calcium 10.3 mg/dL (8.5-10.5); Carbon Dioxide 21 mmol/L (22-29); Chloride 108 mmol/L (98-107); Globulin 2.9 g/dL (1.3-4.6); Glucose 95 mg/dL (65-115); NT Pro B Type Natriuretic Pept 2439 pg/mL (0-450); Osmolality Calculated 303 mOsm/kg (285-295); Potassium 3.6 mmol/L (3.5-5.1); Sodium 143 mmol/L (136-145); Total Bilirubin 0.4 mg/dL (0.15-1.2)
[2023-07-18 20:22] VITALS: PULSE 62; RESP 18; O2SAT 92
== END 2023-07-18 20:12 | disposition home or self-care (01) ==
PROVIDERS: Emergency Provider Emergency Medicine; PCP Nurse Practitioner Family
DX: F41.9 Anxiety disorder, unspecified (principal); G20 Parkinson's disease
CPT/HCPCS: 71045; 80053; 83880; 85025; 93005; 99285